=== PATIENT | male | born 1960 ===

== ENCOUNTER 2023-12-10 11:45 | Outpatient (CLI) | payer MEDICARE, SELFPAY ==
--- NOTE | ~2023-12-10 | XR_ITS ---
Right elbow Technique: AP, oblique, and lateral views were obtained. Clinical History: Pain Findings: No acute fracture or dislocation is seen. Osseous alignment is anatomic. Joint spaces are p reserved. There is no displacement of the fat pads, and soft tissues are unremarkable. Impression: Unremarkable radiographs. Reviewed, dictated and finalized at location . Impression: Unremarkable radiographs.
== END 2023-12-10 11:46 | disposition home or self-care (01) ==
LOC: CHSIMG 11:49
PROVIDERS: PCP Internal Medicine; Visit Provider Internal Medicine
DX: M25.521 Pain in right elbow (principal)
CPT/HCPCS: 73080

== ENCOUNTER 2024-05-16 11:21 | Outpatient (CLI) | payer MEDICARE, SELFPAY ==
--- NOTE | ~2024-05-16 | XR_ITS ---
XR hip BI 2V w AP pelvis Ordering provider: Stanislaw Murphy MD History: . BL HIP PAIN CHRONIC . Comparison: None. FINDINGS: BONES: No acute fracture or dislocation. Possibility of AVN in the right femoral head is not excluded . HIP JOINT SPACES: Normal. SACROILIAC JOINT SPACES/LUMBAR SPINE: The sacroiliac joint spaces shows left sacroiliitis. Mild degen erative changes of the visualized lower lumbar spine. PUBIC SYMPHYSIS: Normal. SOFT TISSUES: Normal. Device is projected over the right iliac bone with spinal stimulator IMPRESSION: No acute osseous abnormality of the bilateral hips and pelvis. Reviewed, dictated and finalized at location A.
[2024-05-16 11:38] LABS: Hematocrit 39.1 % (40.0-54.0); Mean Corpuscular HGB Conc 33.2 g/dL (32-36); Mean Corpuscular Hemoglobin 29.9 pg (27.0-31.0); Mean Corpuscular Volume 89.9 fL (78.0-102.0); Mean Platelet Volume 8.9 fl (8.7-11.0); Platelet Count Result 281 K/mm3 (150-420); Red Blood Count 4.35 M/mm3 (4.70-6.10); Red Cell Distribution Width 14.6 % (11.6-14.4)
[2024-05-16 11:46] LABS: White Blood Count 20.4 K/mm3 (4.8-10.8)
[2024-05-16 11:48] LABS: Add Urine Microscopic? YES; Appearance Urine Clear (Clear); Bilirubin Urine Negative (Negative); Blood Urine Trace-intact (Negative); Color Urine Yellow (Yellow); Glucose Urine UA 3+ (Negative); Ketones Urine Negative (Negative); Leukocyte Esterase Ur Negative (Negative); Nitrate Urine Negative (Negative); Protein Urine 1+ (Negative); Specific Grav Ur 1.015 (1.010-1.020)
[2024-05-16 11:53] LABS: Bacteria Urine Rare /hpf; Mucus Urine Few /lpf; Squamous Epithelial Cell Urine Occasional /hpf (Few); WBC Urine None seen /hpf (0-3)
[2024-05-16 13:05] LABS: Band Neutrophils Percent 0 % (0-6); Eosinophils Percent Manual 2 % (1-6); Lymphocytes Absolute Manual 2.65 K/mm3 (1.1-4.5); Lymphocytes Percent Manual 13 % (18-44); Monocytes Absolute Manual 0.61 K/mm3 (0.1-0.90); Monocytes Percent Manual 3 % (3-9); Neutrophils Absolute Manual 16.72 K/mm3 (1.3-6.7); Neutrophils Percent Manual 82 % (46-73); Total Cells Counted 100
[2024-05-16 13:06] LABS: Platelet Estimate Adequate (Adequate)
[2024-05-16 13:44] LABS: Alanine Aminotransferase 13 U/L (16-63); Albumin Level 3.2 g/dL (3.4-5.0); Alkaline Phosphatase 139 U/L (46-116); Anion Gap 8 mmol/L (4-12); Aspartate Amino Transferase 15 U/L (15-37); Bilirubin,Total 0.6 mg/dL (0.00-1.00); Blood Urea Nitrogen 10 mg/dL (7-18); Calcium 8.7 mg/dL (8.5-10.1); Carbon Dioxide 31 mmol/L (21-32); Chloride 99 mmol/L (98-108); Cholesterol 130 mg/dL (0-200); Estimated Glomerular Filt Rate > 60; Free T3 2.59 pg/mL (2.18-3.98); Free T4 Free Thyroxine 1.24 ng/dL (0.76-1.46); Glucose 205 mg/dL (70-99); HDL Direct 47 mg/dL (40-60); LDL Cholesterol Calculated 68 mg/dL (<130); Osmolality Calculated 291 mOsm/kg (285-295); Potassium 3.5 mmol/L (3.5-5.1); Sodium 138 mmol/L (136-145); Thyroid Stimulating Hormone 0.93 uIU/mL (0.36-3.74); Total Protein 6.6 g/dL (6.4-8.2); Triglycerides 74 mg/dL (0-150)
[2024-05-16 13:45] LABS: CRP 12.7 mg/dL (0.0-0.9); Prostate Specific Antigen < 0.1 ng/mL (< OR = 4.0)
[2024-05-17 11:09] LABS: Hemoglobin A1C 9.9 % (<5.7)
== END 2024-05-16 11:22 | disposition home or self-care (01) ==
LOC: CHSLAB 11:23
PROVIDERS: PCP Internal Medicine; Visit Provider Internal Medicine
DX: R73.02 Impaired glucose tolerance (oral) (principal); I25.10 Atherosclerotic heart disease of native coronary artery without angina pectoris; J44.9 Chronic obstructive pulmonary disease, unspecified; M25.552 Pain in left hip; M25.551 Pain in right hip; E11.9 Type 2 diabetes mellitus without complications; Z12.5 Encounter for screening for malignant neoplasm of prostate
CPT/HCPCS: 36415; 73521; 80053; 80061; 81001; 83036; 84153; 84439; 84443; 84481; 85025; 86140; G0103

== ENCOUNTER 2024-10-10 16:01 | Outpatient (CLI) | payer MEDICARE, SELFPAY ==
[2024-10-10 16:15] LABS: Base Excess ABG 4.8 mmol/L (0-2); Basophils Absolute Auto 0.06 K/mm3 (0.00-0.10); Basophils Percent Auto 0.5 % (0.0-1.0); Eosinophils Absolute Auto 0.08 K/mm3 (0.02-0.50); Eosinophils Percent Auto 0.7 % (1.0-6.0); HCO3 ABG 28.7 mmol/L (23-29); Hematocrit 37.6 % (37.0-46.0); Hemoglobin 12.3 g/dL (12.4-15.3); Immature Granulocyte Absolute 0.08 K/mm3 (0.00-0.00); Immature Granulocyte Percent A 0.7 % (0.0-0.0); Lymphocytes Absolute Auto 1.84 K/mm3 (1.10-4.50); Lymphocytes Percent Auto 16.7 % (18.0-42.0); Mean Corpuscular HGB Conc 32.7 g/dL (32-36); Mean Corpuscular Hemoglobin 29.1 pg (27.0-31.0); Mean Corpuscular Volume 88.9 fL (78.0-102.0); Mean Platelet Volume 9.3 fl (8.7-11.0); Monocytes Percent Auto 6.4 % (2.0-11.0); Neutrophils Absolute Auto 8.26 K/mm3 (1.70-7.20); Oxygen Saturation ABG 86.6 % (95-97); Oxyhemoglobin 85.7 % (94-100); PCO2 ABG 39.8 mmHg (35-45); PO2 ABG 50.8 mmHg (80-90); Platelet Count Result 261 K/mm3 (150-420); Red Blood Count 4.23 M/mm3 (4.70-6.10); Red Cell Distribution Width 13.8 % (11.6-14.4); pH ABG 7.48 (7.35-7.45)
[2024-10-10 16:16] LABS: Device ROOM AIR; Modified Allen's Test Pass; Site Drawn LEFT RADIAL
[2024-10-10 16:30] LABS: Hemoglobin A1C 7.1 % (<5.7)
[2024-10-10 17:04] LABS: Alanine Aminotransferase 15 U/L (16-63); Alkaline Phosphatase 143 U/L (46-116); Anion Gap 8 mmol/L (4-12); Aspartate Amino Transferase < 10 U/L (15-37); Bilirubin,Total 0.4 mg/dL (0.00-1.00); Blood Urea Nitrogen 9 mg/dL (7-18); Calcium 7.9 mg/dL (8.5-10.1); Carbon Dioxide 32 mmol/L (21-32); Chloride 101 mmol/L (98-108); Estimated Glomerular Filt Rate > 60; Glucose 132 mg/dL (70-99); NT Pro B Type Natriuretic Pept 235 pg/mL (0-125); Osmolality Calculated 292 mOsm/kg (285-295); Potassium 2.9 mmol/L (3.5-5.1); Sodium 141 mmol/L (136-145); Total Protein 7.2 g/dL (6.4-8.2)
[2024-10-10 17:08] LABS: CRP 18.2 mg/dL (0.0-0.9)
--- OUTSIDE RECORDS SUMMARY | 2024-10-10 18:34 | XMS_ITS | Clinical Summary ---
Author Organization [facility] Address [address] [place] [address] Phone Care Team Providers Care Tennis Instructor Name Role Phone Unavailable Unavailable Unavailable Reason for Visit and Chief Complaint PAIN MANAGEMENT NEW CONSULT Plan of Treatment No Plan of Treatment Recorded Assessments Includes: Assessments from this encounter No Assessments Recorded Medical Equipment - Implanted Devices Includes: Current Devices No Medical Equipment Recorded Medications Administered Includes: Administered Medications from this encounter No Administered Medications Recorded Results Includes: Results discussed during this encounter No Results Recorded For Specified Dates History of Present Illness Includes: History of Present Illness from this encounter No History of Present Illness Recorded Social History No Social History Recorded - Smoking Status Unknown Medical History Includes: Medical History addressed during this encounter No Medical History Recorded Family History Includes: Family History addressed during this encounter No Family History Recorded Review of Systems Includes: Review of Systems from this encounter No Review of Systems Recorded Mental Status Includes: Mental Status from this encounter No Mental Status Recorded Functional Status Includes: Functional Status from this encounter No Functional Status Recorded Physical Exam Includes: Physical Exam from this encounter No Physical Exam Recorded Clinical Notes Includes: Clinical Notes from this encounter No Clinical Notes Recorded
--- OUTSIDE RECORDS SUMMARY | 2024-10-10 18:34 | XMS_ITS | Encounter Summary ---
Author Organization [facility] Address [address] [place] [address] Care Team Providers Care Track Coach Name Role Phone Kingsley Saul Motta MD Primary Care Provider [phone] Alejandro Red MD Un[facility] María Saldaña APRN DIRECTOR SURGICAL-C Unavailable Dang Salgado NP Primary Care Provider [phone] Isaac Nicholson MD Primary Care Provider [phone] Stanislaw Murphy MD Primary Care Provider [phone] Maribel De La Rosa MD Unavailable Encounter Details Date Type Department Care Team (Late st Contact Info) Description 08/24/2014 [facility] [address] [address] Alejandro Red MD Social History Tobacco Use Types Packs/Day Years Used Date Smoking Tobacco: Smoker, Current Status Unknown Alcohol Use Standard Drinks/Week Comments No 0 (1 standard drink = 0.6 oz pur e alcohol) Sex and Gender Information Value Date Recorded Sex Assigned at Male 08/25/2024 10:28 AM CASE PLANNER Legal Sex Male 11:19 PM CDT Gender Identity Not on file Sexual Orientation Not on file 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 Not on file No t on file documented as of this encounter Plan of Treatment Upcoming Encounters Date Type Department Care Team (Late st Contact Info) Description 11/28/2024 12:00 PM CDT Office Visit [facility] [place] [phone] Maribel De La Rosa MD [address] [place] [address] documented as of this encounter Visit Diagnoses Not on filedocumented in this encounter Additional Health Concerns Infection Onset Date Last Indicated Resolved Time COVID-19 Rule Out 12/11/2020 12/11/2020 12/11/2020 7:42 PM CDT COVID-19 Rule Out 05/31/2021 05/31/2021 05/31/2021 5:58 PM CDT COVID-19 Rule Out 05/31/2021 05/31/2021 06/01/2021 8:07 PM CDT Respiratory Rule-Out 09/20/2024 09/20/2024 025 3:34 PM CASE PLANNER COVID-19 Rule Out 09/20/2024 09/20/2024 09/20/2024 3:48 PM CASE PLANNER Influenza - Seasonal Comment:[facility] notified of ICU influenza admission 09/20/2024 09/21/2024 10/01/2024 12:33 AM CASE PLANNER documented as of this encounter Care Teams Track Coach Relationship Specialty Start Date End Date Saul Wynn MD [address] [place], [place] [id number] PCP - General FAMILY PRACTICE 09/10/16 05/24/20 Dang Salgado NP [address] [place] [address] PCP - General Nurse Practitioner Family 05/25/20 12/10/20 Isaac Nicholson MD [address] [place] [phone] PCP - General FAMILY PRACTICE 12/11/20 09/03/23 Stanislaw Murphy MD [address] [place] [address] PCP - General INTERNAL MEDICINE 09/04/23 Alejandro Red MD [address] [place] [address] [employer] Operator CARDIOVASCULAR DISEASE 09/10/16 01/30/24 María Saldaña, DERRICK FOLLOWER, DIRECTOR SURGICAL-C [address] [facility] [address] [place] [address] [employer] Operator CARDIOVASCULAR DISEASE 11/09/17 01/30/24 Maribel De La Rosa MD [address] [place] [address] Consulting Physician CARDIOVASCULAR DISEASE 01/31/24 documented as of this encounter
--- OUTSIDE RECORDS SUMMARY | 2024-10-10 18:34 | XMS_ITS | Encounter Summary ---
Author Organization [facility] Address [address] [place] [address] Care Team Providers Care Printer Slotter Operator Name Role Phone Kingsley Saul Motta MD Primary Care Provider [phone] Alejandro Red MD Un[facility] Mar[facility] Perales APRN LOCOMOTIVE SUPERVISOR-C Unavailable Dang Salgado NP Primary Care Provider [phone] Isaac Nicholson MD Primary Care Provider [phone] Stanislaw Murphy MD Primary Care Provider [phone] Maribel De La Rosa MD Unavailable Encounter Details Date Type Department Care Team (Late Contact Info) Description 01/01/2019 Abstract [facility] [address] [place] [address] , Generic Conversion, Social History Tobacco Use Types Packs/Day Years Used Date Smoking Tobacco: Some Days Cigarettes Smokeless Tobacco: Never Comments:quit 1 week ago is on chantix Alcohol Use Standard Drinks/Week Comments No 0 (1 standard drink = 0.6 oz pur e alcohol) Sex and Gender Information Value Date Recorded Sex Assigned at Male 08/25/2024 10:28 AM FENDER MECHANIC APPRENTICE Legal Sex Male 11:19 PM CDT Gender Identity Not on file Sexual Orientation Not on file 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 Not on file No t on file documented as of this encounter Plan of Treatment Upcoming Encounters Date Type Department Care Team (Late Contact Info) Description 11/28/2024 12:00 PM CDT Office Visit [facility] [address] [place] [phone] Maribel De La Rosa MD [address] [place] [address] documented as of this encounter Visit Diagnoses Not on filedocumented in this encounter Additional Health Concerns Infection Onset Date Last Indicated Resolved Time COVID-19 Rule Out 12/11/2020 12/11/2020 12/11/2020 7:42 PM CDT COVID-19 Rule Out 05/31/2021 05/31/2021 05/31/2021 5:58 PM CDT COVID-19 Rule Out 05/31/2021 05/31/2021 06/01/2021 8:07 PM CDT Respiratory Rule-Out 09/20/2024 09/20/2024 025 3:34 PM FENDER MECHANIC APPRENTICE COVID-19 Rule Out 09/20/2024 09/20/2024 09/20/2024 3:48 PM FENDER MECHANIC APPRENTICE Influenza - Seasonal Comment:[facility] notified of ICU influenza admission 09/20/2024 09/21/2024 10/01/2024 12:33 AM FENDER MECHANIC APPRENTICE documented as of this encounter Care Teams Printer Slotter Operator Relationship Specialty Start Date End Date Saul Wynn MD [address] [place], [place] [phone] PCP - General FAMILY PRACTICE 09/10/16 05/24/20 Dang Salgado NP [address] [place] [address] PCP - General Nurse Practitioner Family 05/25/20 12/10/20 Isaac Nicholson MD [address] [place] [phone] PCP - General FAMILY PRACTICE 12/11/20 09/03/23 Stanislaw Murphy MD [address] [place] [address] PCP - General INTERNAL MEDICINE 09/04/23 Alejandro Red MD [address] [place] [address] [place] [employer] CARDIOVASCULAR DISEASE 09/10/16 01/30/24 María Saldaña, STENCIL MACHINE OPERATOR, LOCOMOTIVE SUPERVISOR-C [address] [facility] [address] [place] [address] [place] [employer] CARDIOVASCULAR DISEASE 11/09/17 01/30/24 Maribel De La Rosa MD [address] [place] [address] Consulting Physician CARDIOVASCULAR DISEASE 01/31/24 documented as of this encounter
--- OUTSIDE RECORDS SUMMARY | 2024-10-10 18:35 | XMS_ITS | Clinical Summary ---
Author Organization [facility] Address [address] [place] [address] Care Team Providers Care Heat Regulator Name Role Phone Stanislaw Murphy MD Primary Care Provider [phone] Maribel De La Rosa MD Unavailable Allergies No known active allergies Medications aspirin EC (ASPIRIN EC) 81 MG tablet Take 1 tablet (81 mg total) by mouth daily. Active metoprolol succinate 100 MG 24 hr tablet Take 1 tablet (100 mg total) by mouth daily. 010 Active atorvastatin 20 MG tablet Take 1 tablet (20 mg total) by mouth daily. 021 Active omeprazole 40 MG capsule Take 1 capsule (40 mg total) by mouth 2 (two) times daily. 60 capsule 3 021 Active Nebulizer MiscIndications :Centrilobular emphysema ([facility]) Please provide patient with nebulizer machine to be used with nebulized medications.. Diagnosis COPD emphysema 1 each 021 Active cyclobenzaprine (FLEXERIL) 10 MG tablet Take 1 tablet (10 mg total) by mouth 3 (three) times daily. 023 Active ONETOUCH ULTRA test strip daily. 023 Active HYDROcodone-dipak taminophen (NORCO) 10-325 MG tablet Take 1 tablet by mouth every 6 (six) hours as needed for Pain. 023 Active albuterol (PROVENTIL) (2.5 MG/3ML) 0.083% nebulizer solutionIndicat ions:Pulmonary emphysema, unspecified emphysema type ([facility]) Inhale 1 vial every 6 hours for wheezing 300 mL 2 023 Active montelukast (SINGULAIR) 10 MG tabletIndicatio ns:Moderate persistent asthma without complication (HHS/HCC) Take 1 tablet (10 mg total) by mouth nightly at bedtime. 90 tablet 3 024 Active SYMBICORT 160-4.5 MCG/ACT inhalerIndicati ons:Chronic obstructive pulmonary disease, unspecified COPD type ([facility]) INHALE 2 PUFFS INTO THE LUNGS TWICE A DAY 6 g 6 024 Active dilTIAZem CD (CARDIZEM CD) 180 MG 24 hr capsule Take 1 capsule (180 mg total) by mouth every morning. 90 capsule 2 024 Active Umeclidinium [place] (INCRUSE ELLIPTA) 62.5 MCG/ACT AEROSOL POWDER, BREATH ACTIVATEDIndica tions:Pulmonary emphysema, unspecified emphysema type ([facility]) Inhale 1 puff into the lungs daily. 30 each 6 024 Active nitroglycerin (NITROSTAT) 0.[address] 1 tablet (0.4 mg total) under the tongue every 5 (five) minutes as needed for Chest Pain. 25 tablet 024 Active glimepiride (AMARYL) 2 MG tablet Take 1 tablet (2 mg total) by mouth every morning before breakfast. Active OXYGEN CONCENTRATOR SUPPLY, DME,Indications :Acute hypoxic respiratory failure ([facility]),Asthma -COPD overlap syndrome ([facility]),COPD (chronic obstructive pulmonary disease) ([facility]) 1 Device by Nasal route continuous. Nasal cannula, 2 at rest and 3 with activity. Portable oxygen tank, stationary oxygen concentrator. 1 Device 025 Active ipratropium-alb uterol (DUONEB) 0.5-2.5 (3) MG/3ML SolutionIndicat ions:COPD Take 3 mLs by nebulization every 6 (six) hours as needed (respiratory distress). Indications: COPD 360 mL 1 025 Active busPIRone (BUSPAR) 10 MG tabletIndicatio ns:Anxiety disorder Take 1 tablet (10 mg total) by mouth 2 (two) times daily. Indications: Anxiety disorder 60 tablet 025 Active WALKER MISC, DME,Indications :Unsteady Gait 1 Device by Does not apply route as needed. Indications: Unsteady Walk 4 wheel walker with seat 1 Device 025 2025 Active albuterol sulfate HFA 108 (90 Base) MCG/ACT inhalerIndicati ons:Centrilobul ar emphysema ([facility]) TAKE 2 PUFFS BY MOUTH EVERY 4 HOURS NEEDED 8 g 025 Active albuterol sulfate HFA 108 (90 Base) MCG/ACT inhalerIndicati ons:Centrilobul ar emphysema ([facility]) inhale 2 puffs by mouth every 4 hours as needed 1 g 8 024 2024 Discontinued cephALEXin (KEFLEX) 500 MG capsuleIndicati ons:Asthma-COPD overlap syndrome ([facility]) TAKE 1 CAPSULE BY MOUTH THREE TIMES A DAY 30 capsule 025 2024 Discontinued(E rror) predniSONE (DELTASONE) 5 mg tabletIndicatio ns:Asthma-COPD overlap syndrome ([facility]) TAKE 3 TABLETS DAILY FOR 3 DAYS, 2 TABLETS DAILY FOR 3 DAYS, 1 TABLET DAILY FOR 3 DAYS AND STOP. 18 tablet 025 2024 Discontinued(E rror) guaiFENesin ER (MUCINEX) 600 MG 12 hr tabletIndicatio ns:COPD Take 1 tablet (600 mg total) by mouth 2 (two) times daily for 10 days. Indications: COPD 20 tablet 025 2024 Active Problems Problem Noted Date Diagnosed Date Acute respiratory failure ([facility]) 08/28 Acute hypoxic respiratory failure ([facility]) 09/21/2024 Lung nodule 04/08/2023 Sleep related hypoxia 06/16/2022 Smoker 03/22/2021 Snoring 03/22/2021 Marijuana smoker 08/23/2019 Cigarette nicotine dependenc e with nicotine-induced disorder 08/23/2019 Low back pain 05/07/2017 Anxiety disorder 05/05/2017 Depression 05/05/2017 Hiatal hernia 05/05/2017 Hip pain, left 05/05/2017 Diabetes mellitus, type 2 ([facility]) 04/26 Asthma-COPD overlap syndrome ([facility]) 1 Hypercholesteremia 05/05/2017 Hypertension 05/05/2017 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 11/23/2016 Mixed hyperlipidemia 11/23/2016 PVD (peripheral vascular disease) HTN (hypertension) Restless leg syndrome Shortness of breath Chest pain Centrilobular emphysema ([facility]) Diabetes ([facility]) COPD (chronic obstructive pu lmonary disease) ([facility]) Claudication Resolved Problems Problem Noted Date Diagnosed Date Resolved Date Sleep apnea 05/05/2017 06/16/2022 Shortness of breath 11/23/2016 11/10/19 18 Vasovagal syncope 11/23/2016 11/09/2017 Encounter for preventive health examination 01/10/2016 04/06/2020 Broken ankle 02/11/2019 Encounters Date Type Department Care Team Description 10/04/2024 10:00 AM CDT Home Care Visit [facility] [address] [place] [address] Rebecca Luke RN SN NON ADMIT SOC 09/28/2024 8:00 AM GOAT FARMER Home Care Visit [facility] [address] [place] [address] Kathrine Caban, RN SN NON ADMIT SOC 09/27/2024 Hospital Follow-up Call [facility] [address] [place] [address] Bri Moreno, RN 09/26/2024 10:15 AM GOAT FARMER Home Care Visit [facility] Home Care [facility] [address] [place] [address] Katelyn Gilman LPN /[facility] ORIENTATION VISIT 09/26/2024 10:15 AM GOAT FARMER Home Care Visit [facility] Home Care [facility] [address] [place] [address] Bri Ham LPN [facility] TELEPHONE CALL 09/21/2024 6:36 AM GOAT FARMER - 09/26/2024 1:53 PM GOAT FARMER Hospital Encounter [facility] [address] [place] [address] Vilma Garcia MD Hindi, Zakaria, MD Kakani, Elijah V, MD Wali, Neehal, MD Mahmoud, Anas, MD Bhandari, Amit, MD Discharge Disposition: Home or Self Care (Routine Discharge) 09/21/[address] [phone] Yomaira Powell MD Called To Cancel Office Appt. 09/20/2024 2:26 PM GOAT FARMER - 09/21/2024 5:35 AM [facility] Emergency [place] [facility] [address] [facility] [address] [place] [address] Genaro Cordoba MD Phemister, Dominic L, MD Shortness Of Breath Discharge Disposition: Transfer to Acute Care Hospital 09/20/2024 Travel 08/25/2024 10:30 AM GOAT FARMER - 08/25/2024 11:59 PM GOAT FARMER Hospital Encounter [place] [address] [facility] [place] [address] Noman Linton MD Discharge Disposition: Home or Self Care (Routine Discharge) 08/25/2024 Travel 08/09/2024 Orders Only [address] [phone] Yomaira Powell MD 08/09/[address] [phone] Yomaira Powell MD Insurance 08/08/[address] [phone] Yomaira Powell MD Refill Request from Last 3 Months Immunizations Name Administration Dates Next Due Fluzone 6 Months+ Quad (0.5 mL Prefilled Syringe ) 04/20/2019 Family History Medical History Relation Comments Heart Attack Brother 1 Heart Attack Brother 2 Coronary artery disease Father Heart Attack Father Stroke Father Hypertension Mother Diabetes Other Heart Disease Other Hypertension Other Relation Status Comments Brother 1 Brother 2 Father Mother Other Alive Social History Tobacco Use Types Packs/Day Years Used Date Smoking Tobacco: Every Day Cigarettes 1 42 Smokeless Tobacco: Never Alcohol Use Standard Drinks/Week Comments No 0 (1 standard drink = 0.6 oz pur e alcohol) [facility] Utilities Answer Date Recorded In the past 12 months has e [email or web address], oil, or water [employer] threatened to shut off services in your home? No 09/21/2024 Humiliation, Afraid, Rape, and Kick questionnair e Answer Date Recorded Within the last year, have y ou been afraid of your partner or ex-partner? No 09/21/2024 Within the last year, have y ou been humiliated or emotionally abused in other ways by your partner or ex-partner? No Within the last year, have y ou been kicked, hit, slapped, or otherwise physically hurt by your partner or ex-partner? No 09/21/2024 Within the last year, have y ou been raped or forced to have any kind of sexual activity by your partner or ex-partner? No 09/21/2024 Overall Financial Resource Strain (CARDIA) Answe r Date Recorded How hard is it for you to pa y for the very basics like food, housing, medical care, and heating? Not very hard 09/21/2024 PHQ-2 Answer Date Recorded PHQ-2 Score - If the patient scores above 3, please move on to questions 3-9 2 03/20/2021 Hunger Vital Sign Answer Date Recorded Within the past 12 months, y ou worried that your food would run out before you got the money to buy more. Never true 09/21/19 25 Within the past 12 months, t he food you bought just didn't last and you didn't have money to get more. Never true 09/21/2024 PRAPARE - Transportation Answer Date Re corded In the past 12 months, has l ack of transportation kept you from medical appointments or from getting medications? No 08/28 In the past 12 months, has l ack of transportation kept you from meetings, work, or from getting things needed for daily living? No 09/21/2024 Housing Stability Vital Sign Answer Saleem e Recorded In the last 12 months, was t here a time when you were not able to pay the mortgage or rent on time? No 09/21/2024 In the past 12 months, how m any times have you moved where you were living? 0 09/21/2024 At any time in the past 12 m [facility], were you homeless or living in a care home (including now)? 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 Not on file Not on file No t on file Last Filed Vital Signs Vital Sign Reading Time Taken Comments Blood Pressure 134/87 09/26/2024 7:52 AM GOAT FARMER Pulse 119 09/26/2024 7:52 AM GOAT FARMER Temperature 36.5 C (97.7 F) 09/26/2024 7:52 AM GOAT FARMER Respiratory Rate 20 09/26/2024 4:37 AM GOAT FARMER Oxygen Saturation 94% 09/26/2024 7:52 AM GOAT FARMER Inhaled Oxygen Concentration - - Weight 65.3 kg (143 lb 15.4 oz) 09/26/2024 5:00 AM GOAT FARMER Height 180 cm (5' 10.87 ) 09/21/2024 10 :25 AM GOAT FARMER Body Mass Index 20.15 09/21/2024 10:25 AM GOAT FARMER Plan of Treatment Upcoming Encounters Date Type Department Care Team (Late st Contact Info) Description 11/28/2024 12:00 PM CDT Office Visit [facility] [place] [phone] Maribel De La Rosa MD [address] [place] [phone] Health Maintenance Due Date Last Done Comments ASCVD Statin 1959 Kidney Health Evaluation 1960 Pneumococcal Vaccine: 65+ Years (1 of 2 - PCV) 1965 Pneumococcal Vaccine: Pediatrics (0 to 5 Years) and At-Risk Patients (6 to 64 Years) (1 of 2 - PCV) 1965 Diabetes: Retinopathy Eye Exam 1977 Hepatitis C 1977 DTaP, Tdap and Td Vaccines (1 - Tdap) 1978 Zoster Vaccines (1 of 2) 2009 ASCVD LDL 11/05/2018 11/05/2017 Lipid Panel 11/05/2018 11/05/2017 RSV Immunization or 60+ Years (1 - Risk 60-74 years 1-dose series) 2019 COVID-19 Vaccine (3 - season) 2024 12/04/2020, 11/06/2020 Influenza Adult (#1) 2024 04/20/2019 PHQ-2 (Physician [place]) 07/27/2024 Hemoglobin A1C 03/21/2025 09/21/2024, 04/27, 02/15/2022, Additional history exists Lung Cancer Screening 08/25/2025 08/25/2024 , 03/18/2024, 09/04/2023, Additional history exists Colorectal Cancer Screening Colonoscopy (10 Years) 02/15/2031 02/15/2021, 02/15/2021 AAA SCREENING Completed 08/25/2024, 02/25, 09/04/2023, Additional history exists Meningococcal B Vaccine Aged Out No l onger eligible based on patient's age to complete this topic Meningococcal Vaccine Aged Out No annemarie ap eligible based on patient's age to complete this topic RSV Immunizations Under 20 Months Aged Out No longer eligible based on patient's age to complete this topic Procedures Procedure Name Priority Date/Time Associated Diagnosis Comments POCT GLUCOSE - BRYAN DOCKED DEVICE Routine 09/26/2024 10:57 AM GOAT FARMER POCT GLUCOSE - BRYAN DOCKED DEVICE Routine 09/26/2024 5:51 AM GOAT FARMER XR CHEST PORTABLE STAT 09/26/2024 5:3 8 AM GOAT FARMER BLOOD GAS, ARTERIAL LAB STAT 09/26/2024 5:10 AM GOAT FARMER POCT GLUCOSE - BRYAN DOCKED DEVICE Routine 09/25/2024 8:42 PM GOAT FARMER POCT GLUCOSE - BRYAN DOCKED DEVICE Routine 09/25/2024 3:37 PM GOAT FARMER POCT GLUCOSE - BRYAN DOCKED DEVICE Routine 09/25/2024 10:47 AM GOAT FARMER PHOSPHORUS, INORGANIC PHOSPHATE Routine 09/25/2024 5:18 AM GOAT FARMER MAGNESIUM Routine 09/25/2024 5:18 AM GOAT FARMER COMPREHENSIVE METABOLIC PANEL Routine 09/25/2024 5:18 AM GOAT FARMER CBC W/DIFF AUTOMATED Routine 09/25/2024 5:18 AM GOAT FARMER POCT GLUCOSE - BRYAN DOCKED DEVICE Routine 09/25/2024 4:59 AM GOAT FARMER POCT GLUCOSE - BRYAN DOCKED DEVICE Routine 09/24/2024 8:44 PM GOAT FARMER POCT GLUCOSE - BRYAN DOCKED DEVICE Routine 09/24/2024 4:53 PM GOAT FARMER POCT GLUCOSE - BRYAN DOCKED DEVICE Routine 09/24/2024 11:04 AM GOAT FARMER CBC W/DIFF AUTOMATED Routine 09/24/2024 5:21 AM GOAT FARMER PHOSPHORUS, INORGANIC PHOSPHATE Routine 09/24/2024 5:21 AM GOAT FARMER MAGNESIUM Routine 09/24/2024 5:21 AM GOAT FARMER BASIC METABOLIC PANEL Routine 09/24/2024 5:21 AM GOAT FARMER POCT GLUCOSE - BRYAN DOCKED DEVICE Routine 09/24/2024 5:12 AM GOAT FARMER POCT GLUCOSE - BRYAN DOCKED DEVICE Routine 09/23/2024 8:59 PM GOAT FARMER POCT GLUCOSE - BRYAN DOCKED DEVICE Routine 09/23/2024 4:35 PM GOAT FARMER POCT GLUCOSE - BRYAN DOCKED DEVICE Routine 09/23/2024 10:36 AM GOAT FARMER HOME O2 EVAL Routine 09/23/2024 9:57 AM GOAT FARMER POCT GLUCOSE - BRYAN DOCKED DEVICE Routine 09/23/2024 8:29 AM GOAT FARMER CBC W/DIFF AUTOMATED Routine 09/23/2024 2:56 AM GOAT FARMER PHOSPHORUS, INORGANIC PHOSPHATE Routine 09/23/2024 2:56 AM GOAT FARMER MAGNESIUM Routine 09/23/2024 2:56 AM GOAT FARMER BASIC METABOLIC PANEL Routine 09/23/2024 2:56 AM GOAT FARMER POCT GLUCOSE - BRYAN DOCKED DEVICE Routine 09/22/2024 4:54 PM GOAT FARMER POCT GLUCOSE - BRYAN DOCKED DEVICE Routine 09/22/2024 12:30 PM GOAT FARMER POCT GLUCOSE - BRYAN DOCKED DEVICE Routine 09/22/2024 6:52 AM GOAT FARMER CBC W/DIFF AUTOMATED Routine 09/22/2024 5:30 AM GOAT FARMER PHOSPHORUS, INORGANIC PHOSPHATE Routine 09/22/2024 5:30 AM GOAT FARMER MAGNESIUM Routine 09/22/2024 5:30 AM GOAT FARMER BASIC METABOLIC PANEL Routine 09/22/2024 5:30 AM GOAT FARMER POCT GLUCOSE - BRYAN DOCKED DEVICE Routine 09/21/2024 8:05 PM GOAT FARMER POCT GLUCOSE - BRYAN DOCKED DEVICE Routine 09/21/2024 5:56 PM GOAT FARMER POCT GLUCOSE - BRYAN DOCKED DEVICE Routine 09/21/2024 4:02 PM GOAT FARMER POCT ACUTE VENOUS PANEL Routine 09/21/2024 1:22 PM GOAT FARMER POCT GLUCOSE - BRYAN DOCKED DEVICE Routine 09/21/2024 11:54 AM GOAT FARMER USE ECHOCARDIOGRAM Routine 09/21/2024 9: 53 AM GOAT FARMER ECG 12-LEAD Routine 09/21/2024 8:47 AM GOAT FARMER POCT ACUTE VENOUS PANEL Routine 09/21/2024 7:53 AM GOAT FARMER POCT GLUCOSE - BRYAN DOCKED DEVICE Routine 09/21/2024 7:49 AM GOAT FARMER CULTURE, BACTERIA, BLOOD Routine 09/21/2024 7:40 AM GOAT FARMER MRSA SCREENING Nurse Collected Priority 09/21/2024 7:40 AM GOAT FARMER LACTIC ACID W REFLEX (SEPSIS) STAT 09/21/2024 7:40 AM GOAT FARMER PROCALCITONIN (PCT) Routine 09/21/2024 7 :40 AM GOAT FARMER AMMONIA Routine 09/21/2024 7:40 AM GOAT FARMER CORTISOL, TOTAL Routine 09/21/2024 7:40 AM GOAT FARMER RESPIRATORY PCR PANEL 2 Nurse Collected Priority 09/21/2024 7:29 AM GOAT FARMER HEMOGLOBIN, GLYCOSYLATED Routine 09/21/2024 7:17 AM GOAT FARMER PROTHROMBIN TIME, VENOUS Routine 09/21/2024 7:17 AM GOAT FARMER CBC W/DIFF AUTOMATED Routine 09/21/2024 7:17 AM GOAT FARMER LIPASE Routine 09/21/2024 7:17 AM GOAT FARMER THYROID STIM HORMONE TSH Routine 09/21/2024 7:17 AM GOAT FARMER PHOSPHORUS, INORGANIC PHOSPHATE Routine 09/21/2024 7:17 AM GOAT FARMER LACTIC ACID Routine 09/21/2024 7:17 AM GOAT FARMER MAGNESIUM Routine 09/21/2024 7:17 AM GOAT FARMER TROPONIN, QUANT Routine 09/21/2024 7:17 AM GOAT FARMER COMPREHENSIVE METABOLIC PANEL Routine 09/21/2024 7:17 AM GOAT FARMER BLOOD GAS, VENOUS STAT 09/20/2024 8:5 7 PM GOAT FARMER CRITICAL CARE Routine 09/20/2024 7:05 PM GOAT FARMER BLOOD GAS, VENOUS STAT 09/20/2024 5:4 6 PM GOAT FARMER CTA CHEST PE PROTOCOL STAT 09/20/2024 4:37 PM GOAT FARMER BLOOD GAS, VENOUS STAT 09/20/2024 4:2 5 PM GOAT FARMER ECG 12-LEAD Routine 09/20/2024 2:59 PM GOAT FARMER BLOOD GAS, VENOUS STAT 09/20/2024 2:4 7 PM GOAT FARMER D-DIMER, QUANTITATIVE STAT 09/20/2024 2:47 PM GOAT FARMER LACTIC ACID W REFLEX (SEPSIS) STAT 09/20/2024 2:47 PM GOAT FARMER TROPONIN, QUANT STAT 09/20/2024 2:47 PM GOAT FARMER COMPREHENSIVE METABOLIC PANEL STAT 09/20/2024 2:47 PM GOAT FARMER CBC W/DIFF AUTOMATED STAT 09/20/2024 2:47 PM GOAT FARMER XR CHEST PORTABLE STAT 09/20/2024 2:4 5 PM GOAT FARMER CORONAVIRUS (COVID-19) ANTIGEN STAT 09/20/2024 2:40 PM GOAT FARMER INFLUENZA A & B STAT 09/20/2024 2:[address] CHEST WO CON Routine 08/25/2024 10:37 AM GOAT FARMER Lung nodule COLONOSCOPY 02/15/2021 8:22 AM CDT LIPID PANEL (OUTSIDE LAB) Routine 11/05/2017 from Last 3 Months or Most Recently Relevant to Health Maintenance Results * (ABNORMAL) POCT glucose (09/26/2024 10:57 AM GOAT FARMER) Only the most recent of22 resultswithin the time period is included. GLUCOSE POC 172(H) 70 - 109 09/26/2024 11:11 AM GOAT FARMER [facility] 09/26/2024 10:5 7 AM GOAT FARMER Ben Medellin MD POCT ORDERABLES - DEVICE Final Result [facility] [address] [place] [address], [id number] * XR CHEST PORTABLE (09/26/2024 5:38 AM GOAT FARMER) Only the most recent of2 resultswithin the time period is included. Anatomical Region Laterality Modality Chest Radiographic Nisreen ging 09/26/2024 5:56 AM GOAT FARMER Impressions 09/26/2024 5:59 AM GOAT FARMER IMPRESSION:===== No acute findings. Resolution of bilateral lower lobe interstitial prominence.. Referred By: GEOVANNY GALLARDO Interpreted By: Devin Ferraro MD, 09/26/2024 5:56 AM Narrative 09/26/2024 5:59 AM GOAT FARMER [address] [id number] EXAMINATION: CHEST RADIOGRAPH SINGLE VIEW Exam date/time: 09/26/2024 5:36 AM Reason For Exam: SOB Comparison: 09/20/2024 Technique: Upright AP view of the chest Findings: Heart size normal. Proximal airways unremarkable. No suspicious pulmonary lesion, pneumothorax, or pleural effusion. Emphysematous change. Thoracic Intrathecal electrodes. Partially visualized cervical spine hardware. Calcified granulomas. ===== Procedure Note Devin Ferraro MD - 09/26/[address] [address] EXAMINATION: CHEST RADIOGRAPH SINGLE VIEW Exam date/time: 09/26/2024 5:36 AM Reason For Exam: SOB Comparison: 09/20/2024 Technique: Upright AP view of the chest Findings: Heart size normal. Proximal airways unremarkable. No suspiciouspulmonary lesion, pneumothorax, or pleural effusion. Emphysematous change. Thoracic Intrathecal electrodes. Partiallyvisualized cervical spine hardware. Calcified granulomas. ===== IMPRESSION:===== No acute findings. Resolution of bilateral lower lobe interstitial prominence.. Referred By: GEOVANNY GALLARDO Interpreted By: Devin Ferraro MD, 09/26/2024 5:56 AM Ben Medellin MD GENERAL IMAGING Final Result * (ABNORMAL) ARTERIAL BLOOD GAS (09/26/2024 5:10 AM GOAT FARMER) PH ARTERIAL 7.45 7.35 - 7.45 09/26/2024 5:22 AM GOAT FARMER [facility] PCO2 46.5(H) 35.0 - 45.0 MMHG 09/26/2024 5:22 AM GOAT FARMER [facility] PO2 67.8(L) 83.0 - 108.0 MMHG 09/26/2024 5:22 AM [facility] BICARB ARTERIAL 31.8(H) 22 - 26 MMOL/L 09/26/2024 5:22 AM [facility] TOTAL CO2 ARTERIAL 33.3(H) 23 - 27 MMOL/L 09/26/2024 5:22 AM [facility] BE/BASE EXCESS 7.0(H) 0 - 2 MMOL/L 09/26/2024 5:22 AM [facility] O2 Saturation 94(L) 95 - 98 % 09/26/2024 5:22 AM [facility] BRANDEN TEST POSITIVE 09/26/2024 5:10 AM [facility] OXYGEN STATUS 3 LT 09/26/2024 5:10 AM [facility] DRAW SITE ARTERIAL LEFT BRACHIAL 09/26/2024 5:10 AM [facility] 09/26/2024 5:10 AM GOAT FARMER Ben Medellin MD LABORATORY Final Result [facility] [address] [place] [address], [id number] * (ABNORMAL) COMPREHENSIVE METABOLIC PANEL (09/25/2024 5:18 AM GOAT FARMER) Only the most recent of3 resultswithin the time period is included. SODIUM S/P/B 137 136 - 145 MMOL/L 09/25/2024 5:55 AM [facility] POTASSIUM S/P/B 3.5 3.5 - 5.1 MMOL/L 09/25/2024 5:55 AM [facility] CHLORIDE S/P/B 103 97 - 115 MMOL/L 09/25/2024 5:55 AM [facility] CO2 30.8 21.0 - 32.0 MMOL/L 09/25/2024 5:55 AM [facility] GLUCOSE 114(H) 74 - 106 MG/DL 09/25/2024 5:55 AM [facility] BUN 19(H) 7 - 18 MG/DL 09/25/2024 5:55 AM [facility] CREATININE S/P/B 0.51(L) 0.70 - 1.30 MG/DL 09/25/2024 5:55 AM [facility] CALCIUM S/P/B 9.5 8.5 - 10.1 MG/DL 09/25/2024 5:55 AM [facility] BILIRUBIN TOTAL S/P/B 0.3 0.2 - 1.0 MG/DL 09/25/2024 5:55 AM [facility] ALKALINE PHOSPHATASE S/P/B 82 45 - 115 U/L 09/25/2024 5:55 AM [facility] AST 7(L) 15 - 37 U/L 09/25/2024 5:55 AM [facility] ALT 21 16 - 61 U/L 09/25/2024 5:55 AM [facility] TOTAL PROTEIN S/P/B 6.7 6.4 - 8.2 G/DL 09/25/2024 5:55 AM [facility] ALBUMIN S/P/B 3.0(L) 3.4 - 5.0 G/DL 09/25/2024 5:55 AM [facility] ANION GAP 3.2 2.0 - 10.0 MMOL/L 09/25/2024 5:55 AM [facility] OSMOLALITY (CALC) 287 MOSM/KG 025 5:55 AM [facility] Comment:REFERENCE RANGE NOT ESTABLISHED GFR ESTIMATE >90 >90 ML/MIN/1. 73 M2 09/25/2024 5:55 AM [facility] GFR NOTES GFR REFERENCE S: 09/25/2024 5:55 AM [facility] Comment: THE ESTIMATED GFR IS CALCULATED USING THE 2020 CKD-EPI EQUATION. THE FOLLOWING CATEGORIES FOR GRADING RENAL FUNCTION ARE RECOMMENDED BY THE [employer] ([email or web address] 2012 CLINICAL PRACTICE GUIDELINE). G1,NORMAL OR HIGH: >89 ml/min/1.73 m2 G2,MILDLY DECREASED: 60-89 ml/min/1.73 m2 G3A,MILDLY TO MODERATELY DECREASED: 45-59 ml/min/1.73 m2 G3B,MODERATELY TO SEVERELY DECREASED: 30-44 ml/min/1.73 m2 G4,SEVERELY DECREASED: 15-29 ml/min/1.73 m2 G5,KIDNEY FAILURE: <15 ml/min/1.73 m2 09/25/2024 5:18 AM GOAT FARMER us Nina Gamez MD LABORATORY Final Result [facility] [address] [place] [address], [phone] * (ABNORMAL) CBC W/DIFF AUTOMATED (09/25/2024 5:18 AM GOAT FARMER) Only the most recent of6 resultswithin the time period is included. WBC 6.65 4.00 - 10.80 x10'3/uL 09/25/2024 5:38 AM GOAT FARMER [facility] RBC 4.99 4.50 - 6.10 x10'6/uL 09/25/2024 5:38 AM GOAT FARMER [facility] HGB 14.7 12.0 - 16.0 G/DL 09/25/2024 5:38 AM GOAT FARMER [facility] HCT 43.4 37.0 - 52.0 % 09/25/2024 5:38 AM GOAT FARMER [facility] MCV 87.0 78.0 - 100.0 FL 09/25/2024 5:38 AM GOAT FARMER [facility] MCH 29.5 27.0 - 31.0 PG 09/25/2024 5:38 AM GOAT FARMER [facility] MCHC 33.9 33.0 - 36.0 G/DL 09/25/2024 5:38 AM [facility] RDW 13.9 11.5 - 14.5 % 09/25/2024 5:38 AM [facility] PLT 216 150 - 350 x10'3/uL 09/25/2024 5:38 AM [facility] MPV 9.3 7.4 - 10.4 FL 09/25/2024 5:38 AM [facility] DIFFERENTIAL TYPE MANUAL DIFFERENTIAL 09/25/2024 6:09 AM [facility] NRBC % 0.0 % 09/25/2024 6:09 AM [facility] SEG NEUTROPHILS 59 % 6:09 AM [facility] LYMPHOCYTES 30 % 09/25/2024 6:09 AM [facility] MONOCYTES 10 % 09/25/2024 6:09 AM [facility] EOSINOPHILS 0 % 09/25/2024 6:09 AM [facility] BASOPHILS 0 % 09/25/2024 6:09 AM [facility] METAMYELOCYTES 1 % 09/25/2024 6:09 AM [facility] ABS. NEUTROPHILS 3.92 1.60 - 8.30 x10'3/uL 09/25/2024 6:09 AM [facility] ABS. LYMPHOCYTES 2.00 0.80 - 4.70 x10'3/uL 09/25/2024 6:09 AM [facility] ABS. MONOCYTES 0.67 0.00 - 1.50 x10'3/uL 09/25/2024 6:09 AM [facility] ABS. EOSINOPHILS 0.00 0.00 - 0.40 x10'3/uL 09/25/2024 6:09 AM [facility] ABS. BASOPHILS 0.00 0.00 - 0.20 x10'3/uL 09/25/2024 6:09 AM [facility] ABS. METAMYELOCYTES 0.07(H) 0.00 x10'3/uL 09/25/2024 6:09 AM [facility] ABS. NUCLEATED RBC'S 0.00 0.00 - 0.01 x10'3/uL 09/25/2024 6:09 AM [facility] RBC MORPHOLOGY SLIDE REVIEWED 2024 6:09 AM GOAT FARMER [facility] POIKLO SLIGHT 09/25/2024 6:09 AM GOAT FARMER [facility] OVALOCYTES PRESENT 09/25/2024 6:09 AM GOAT FARMER [facility] ACANTHOCYTES PRESENT 09/25/2024 6:09 AM GOAT FARMER [facility] PLT EST. ADEQUATE 09/25/2024 6:09 AM [facility] WBC MORPHOLOGY SEE NOTE 09/25/2024 6:09 AM [facility] Comment:Reactive lymphocytes present. 09/25/2024 5:18 AM GOAT FARMER us Nina Gamez MD LABORATORY Final Result Performing Organization Address City/[facility]/ZIP Co de Phone Number [facility] [address] [place] [address], [phone] * PHOSPHORUS, INORGANIC PHOSPHATE (09/25/2024 5:18 AM GOAT FARMER) Only the most recent of5 resultswithin the time period is included. PHOSPHORUS 2.8 2.5 - 4.9 MG/DL 09/25/2024 5:55 AM GOAT FARMER [facility] 09/25/2024 5:18 AM GOAT FARMER us Nina Gamez MD LABORATORY Final Result Performing Organization Address [facility]/ZIP Co de Phone Number [facility] [address] [place] [address], [phone] * MAGNESIUM (09/25/2024 5:18 AM GOAT FARMER) Only the most recent of5 resultswithin the time period is included. MAGNESIUM 1.8 1.6 - 2.6 MG/DL 09/25/2024 5:55 AM [facility] 09/25/2024 5:18 AM GOAT FARMER Nina Gamez MD LABORATORY Final Result [facility] [address] [place] [address], [phone] * (ABNORMAL) BASIC METABOLIC PANEL (09/24/2024 5:21 AM GOAT FARMER) Only the most recent of3 resultswithin the time period is included. Pathologist [facility] SODIUM S/P/B 138 136 - 145 MMOL/L 09/24/2024 6:39 AM [facility] POTASSIUM S/P/B 3.8 3.5 - 5.1 MMOL/L 09/24/2024 6:39 AM [facility] CHLORIDE S/P/B 102 97 - 115 MMOL/L 09/24/2024 6:39 AM [facility] CO2 32.8(H) 21.0 - 32.0 MMOL/L 09/24/2024 6:39 AM [facility] GLUCOSE 127(H) 74 - 106 MG/DL 09/24/2024 6:39 AM [facility] BUN 19(H) 7 - 18 MG/DL 09/24/2024 6:39 AM [facility] CREATININE S/P/B 0.53(L) 0.70 - 1.30 MG/DL 09/24/2024 6:39 AM [facility] CALCIUM S/P/B 9.5 8.5 - 10.1 MG/DL 09/24/2024 6:39 AM [facility] ANION GAP 3.2 2.0 - 10.0 MMOL/L 09/24/2024 6:39 AM GOAT FARMER [facility] OSMOLALITY (CALC) 290 MOSM/KG 025 6:39 AM GOAT FARMER [facility] Comment:REFERENCE RANGE NOT ESTABLISHED GFR ESTIMATE >90 >90 ML/MIN/1. 73 M2 09/24/2024 6:39 AM GOAT FARMER [facility] GFR NOTES GFR REFERENCE S: 09/24/2024 6:39 AM GOAT FARMER [facility] Comment: THE ESTIMATED GFR IS CALCULATED USING THE 2020 CKD-EPI EQUATION. THE FOLLOWING CATEGORIES FOR GRADING RENAL FUNCTION ARE RECOMMENDED BY THE INTERNATIONAL SOCIETY OF NEPHROLOGY (KDIGO 2012 CLINICAL PRACTICE GUIDELINE). G1,NORMAL OR HIGH: >89 ml/min/1.73 m2 G2,MILDLY DECREASED: 60-89 ml/min/1.73 m2 G3A,MILDLY TO MODERATELY DECREASED: 45-59 ml/min/1.73 m2 G3B,MODERATELY TO SEVERELY DECREASED: 30-44 ml/min/1.73 m2 G4,SEVERELY DECREASED: 15-29 ml/min/1.73 m2 G5,KIDNEY FAILURE: <15 ml/min/1.73 m2 09/24/2024 5:21 AM GOAT FARMER Domeniac Mcgovern MD LABORATORY Final Result [facility] [address] [place] [address], [phone] * (ABNORMAL) POCT ACUTE VENOUS PANEL (09/21/2024 1:22 PM GOAT FARMER) Only the most recent of2 resultswithin the time period is included. SODIUM WHOLE BLOOD 144 138 - 146 mmol/L 09/21/2024 1:23 PM GOAT FARMER [facility] POTASSIUM WHOLE BLOOD 2.9(L) 3.5 - 4.9 mmol/L 09/21/2024 1:23 PM GOAT FARMER [facility] CA IONIZED WH BLOOD 1.01(L) 1.12 - 1.32 mmol/L 09/21/2024 1:23 PM GOAT FARMER [facility] POC PH VENOUS 7.376 7.31 - 7.41 09/21/2024 1:23 PM GOAT FARMER [facility] POC PCO2 VENOUS 37.4(L) 41.0 - 51.0 MMHG 09/21/2024 1:23 PM GOAT FARMER [facility] POC PO2 VENOUS 40 25 - 40 MMHG 09/21/2024 1:23 PM GOAT FARMER [facility] POC HCO3 VENOUS 21.9(L) 23 - 28 MMOL/L 09/21/2024 1:23 PM GOAT FARMER [facility] POC TCO2 VENOUS 23(L) 24 - 29 MMOL/L 09/21/2024 1:23 PM GOAT FARMER [facility] POC BASE DEFICIT VENOUS 3(H) 0 - 2 MMOL/L 09/21/2024 1:23 PM GOAT FARMER [facility] POC HEMATOCRIT 32(L) 38 - 51 % 09/21/2024 1:23 PM GOAT FARMER [facility] TIME TEST WAS PERFORMED: 1322 09/21/2024 1:23 PM GOAT FARMER [facility] 09/21/2024 1:22 PM GOAT FARMER Domenica Mcgovern MD POCT ORDERABLES - DEVICE Final Result [facility] [address] [place] [address], [id number] * USE ECHOCARDIOGRAM (09/21/2024 9:53 AM GOAT FARMER) Anatomical Region Laterality Modality Cardiac Echocardiogram 09/21/2024 7:26 AM GOAT FARMER Narrative 09/21/2024 10:42 PM GOAT FARMER Echocardiography Report Pat.Name: DUONG JENNIFER GONZALEZ Pat.ID: [id number] .Date: 09/21/2024 : [id number] MEKA Rowe EWDPROV EWDPROV Exam Time: 7:26:00 AM Study Type:ECHO WITH CARDIAC DOPPLER COMP Height: 71 in Weight: 155 lb BSA: 1.89 m2 Age: 2 1960,64Y Sex: M BP: 121/75 HR: 87 bpm Sonogrphr: Luis Alberto Marie [facility] Pat. Stat.:Inpatient Room: [place] [address] CPT - 4: 48023 Reason for Study:Hypoxia Procedures: 2D, M-mode, Doppler, Color Flow, Portable Race: W ++++++++++++++++++++++++++++++++++++ SUMMARY: ++++++++++++++++++++++++++++++++++++ The left ventricular size is normal. The calculated ejection fraction is 59.5%. Left ventricular diastolic function is abnormal (grade 1 - impaired relaxation). Wall motion appears normal in all segments. The right ventricle size is normal. The right ventricular function is normal. 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 The sinus of Valsalva measures 3.9cm. Inferior vena cava shows <50% collapse with respiration consistent with elevated right atrial pressure. There is trace mitral regurgitation. There is trace tricuspid regurgitation. ++++++++++++++++++++++++++++++++++++ FINDINGS: ++++++++++++++++++++++++++++++++++++ LV: The left ventricular size is normal. The calculated ejection fraction is 59.5%. The septal E/e' is normal at < 8. The lateral E/e' is indeterminate at 9-11. Left ventricular diastolic function is abnormal (grade 1 - impaired relaxation). WM: Wall motion appears normal in all segments. LVOT: The left ventricular outflow tract size is normal. RV: The right ventricle size is normal. The right ventricular function is normal. IVS: Intraventricular septum is normal. LA: Left atrial size is normal. RA: The right atrial size is normal. 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 VIJAYA: No evidence of pericardial effusion. AO: The sinus of Valsalva measures 3.9cm. PA: Pulmonary artery is normal. SVn: Inferior vena cava is normal. Inferior vena cava shows <50% collapse with respiration consistent with elevated right atrial pressure. AV: The aortic valve is trileaflet. There is no aortic stenosis. There is no evidence of aortic regurgitation. MV: The mitral valve is structurally normal. There is trace mitral regurgitation. PV: The pulmonic valve is normal There is trace pulmonic regurgitation TV: The tricuspid valve appears structurally normal. There is trace tricuspid regurgitation. ++++++++++++++++++++++++++++++++++++ MEASUREMENTS: ++++++++++++++++++++++++++++++++++++ DOPPLER LVOT LVOTpkPG 6.4 mmHg LVOTmnPG 3.1 mmHg LVOTpkVel 126 cm/s (70-110)* LVOT SV 78 ml LVOT TVI 23.5 cm Right Atrium RA Press 8 mmHg AV Forward Flow AV TVI 27.5 cm AV pkPG 8 mmHg AV pkVel 142 cm/s (100-170) Area (TVI) 2.82 cm2 (3-5)* AV mnVel 97.5 cm/s Area (Shane) 2.93 cm2 (3-5)* AV mnPG 4.4 mmHg MV Forward Flow MV DeTm 280 msec MV pkE 66.8 cm/s (60-130) MV E/A 0.8 MV pkA 84.8 cm/s TV Regurg Flow TV pkPG 20 mmHg TV pkVel 224 cm/s (30-70)* Right Ventricle RVsys P 28 mmHg Right Ventricle 14.6 cm/s Lat E' Lat e 7.65 cm/s Lat E/E' Lat E/e 8.7 Med E' Med e 8.1 cm/s Med E/E' Med E/e 8.2 Aortic Valve Aortic Valve Ar 1.49 Aortic Valve Ve 0.89 AV DI Value 0.9 TANVI (VTI) Index Value 1.49 LV Mass 2D Value 98.6 g LV Mass Brbib3J Value 52.2 g/m2 2D Left Ventricle LVIDd 4.07 cm (3.6-5.2) LV EF(Bi-Plane) 59.5 % (63-77)* LVIDs 3.17 cm (2.3-3.9) LVPW LVPWd 0.83 cm Ventricular Septum IVSd 0.8 cm Left Atrium LA a-p 1.9 cm (2.8-3.4)* Aorta Ao Rtd 3.9 cm (zsc 3.5)* Ao Asc 2.7 cm (zsc 0.9) LVOT LVOT 2.05 cm Ratios IVS Inferior vena cava IVC Diam 1.7 cm LA Biplane LAVol I BP 24.8 ml/m2 MMODE TA Tricuspid Annul 2 cm <Electronic Signature> 09/21/2024 10:42 PM Maribel De La Rosa M.D. Procedure Note Maribel De La Rosa MD - 09/21/2024 Echocardiography Report Pat.Name: JENNIFER WATTERS Pat.ID: [id number] St.Date: 09/21/2024 Refer.: [id number] MEKA Rowe EWDPROV EWDPROV Exam Time: 7:26:00 AM Study Type:ECHO WITH CARDIAC DOPPLER COMP Height: 71 in Weight: 155 lb BSA: 1.89 m2 Age: 2 1960,64Y Sex: M BP: 121/75 HR: 87 bpm Sonogrphr: Marie Sahu LOLA Pat. Stat.:Inpatient Room: [place] [address] CPT - 4: 36195 Reason for Study:Hypoxia Procedures: 2D, M-mode, Doppler, Color Flow, Portable Race: W ++++++++++++++++++++++++++++++++++++ SUMMARY: ++++++++++++++++++++++++++++++++++++ The left ventricular size is normal. The calculated ejection fraction is 59.5%. Left ventricular diastolic function is abnormal (grade 1 - impaired relaxation). Wall motion appears normal in all segments. The right ventricle size is normal. The right ventricular function is normal. 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 The sinus of Valsalva measures 3.9cm. Inferior vena cava shows <50% collapse with respiration consistent with elevated right atrial pressure. There is trace mitral regurgitation. There is trace tricuspid regurgitation. ++++++++++++++++++++++++++++++++++++ FINDINGS: ++++++++++++++++++++++++++++++++++++ LV: The left ventricular size is normal. The calculated ejection fraction is 59.5%. The septal E/e' is normal at < 8. The lateral E/e' is indeterminate at 9-11. Left ventricular diastolic function is abnormal (grade 1 - impaired relaxation). WM: Wall motion appears normal in all segments. LVOT: The left ventricular outflow tract size is normal. RV: The right ventricle size is normal. The right ventricular function is normal. IVS: Intraventricular septum is normal. LA: Left atrial size is normal. RA: The right atrial size is normal. 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 VIJAYA: No evidence of pericardial effusion. AO: The sinus of Valsalva measures 3.9cm. PA: Pulmonary artery is normal. SVn: Inferior vena cava is normal. Inferior vena cava shows <50% collapse with respiration consistent with elevated right atrial pressure. AV: The aortic valve is trileaflet. There is no aortic stenosis. There is no evidence of aortic regurgitation. MV: The mitral valve is structurally normal. There is trace mitral regurgitation. PV: The pulmonic valve is normal There is trace pulmonic regurgitation TV: The tricuspid valve appears structurally normal. There is trace tricuspid regurgitation. ++++++++++++++++++++++++++++++++++++ MEASUREMENTS: ++++++++++++++++++++++++++++++++++++ DOPPLER LVOT LVOTpkPG 6.4 mmHg LVOTmnPG 3.1 mmHg LVOTpkVel 126 cm/s (70-110)* LVOT SV 78 ml LVOT TVI 23.5 cm Right Atrium RA Press 8 mmHg AV Forward Flow AV TVI 27.5 cm AV pkPG 8 mmHg AV pkVel 142 cm/s (100-170) Area (TVI) 2.82 cm2 (3-5)* AV mnVel 97.5 cm/s Area (Shane) 2.93 cm2 (3-5)* AV mnPG 4.4 mmHg MV Forward Flow MV DeTm 280 msec MV pkE 66.8 cm/s (60-130) MV E/A 0.8 MV pkA 84.8 cm/s TV Regurg Flow TV pkPG 20 mmHg TV pkVel 224 cm/s (30-70)* Right Ventricle RVsys P 28 mmHg Right Ventricle 14.6 cm/s Lat E' Lat e 7.65 cm/s Lat E/E' Lat E/e 8.7 Med E' Med e 8.1 cm/s Med E/E' Med E/e 8.2 Aortic Valve Aortic Valve Ar 1.49 Aortic Valve Ve 0.89 AV DI Value 0.9 TANVI (VTI) Index Value 1.49 LV Mass 2D Value 98.6 g LV Mass Rdisr7U Value 52.2 g/m2 2D Left Ventricle LVIDd 4.07 cm (3.6-5.2) LV EF(Bi-Plane) 59.5 % (63-77)* LVIDs 3.17 cm (2.3-3.9) LVPW LVPWd 0.83 cm Ventricular Septum IVSd 0.8 cm Left Atrium LA a-p 1.9 cm (2.8-3.4)* Aorta Ao Rtd 3.9 cm (zsc 3.5)* Ao Asc 2.7 cm (zsc 0.9) LVOT LVOT 2.05 cm Ratios IVS Inferior vena cava IVC Diam 1.7 cm LA Biplane LAVol I BP 24.8 ml/m2 MMODE TA Tricuspid Annul 2 cm <Electronic Signature> 09/21/2024 10:42 PM Maribel De La Rosa M.D. Vilma Garcia MD ECHO Final Result * ECG 12 lead (09/21/2024 8:47 AM GOAT FARMER) Only the most recent of2 resultswithin the time period is included. 09/21/2024 8:47 AM GOAT FARMER Narrative [facility] - 09/21/2024 7:55 PM GOAT FARMER [place] [address] [place] [address] Test Date: 2024-09-21 Pat Name: JENNIFER WATTERS Department: 1 Room: [place] [address] Gender: Male Manager Strategy: Rakesh : 1960 Requested By: VILMA GARCIA Order Number: [id number] Reading MD: Darius Palacios Measurements Intervals [place] Rate: 88 P: 87 MA: 151 QRS: 54 QRSD: 90 T: 74 QT: 355 QTc: 430 Interpretive Statements SINUS RHYTHM POSSIBLE LEFT ATRIAL ENLARGEMENT [-0.1mV P-WAVE IN V1/V2] POSSIBLE RIGHT VENTRICULAR CONDUCTION DELAY [RSR (QR) IN V1/V2] FARMER Procedure Note Darius Palacios MD - 09/21/2024 [place] [address] Test Date: 2024-09-21 Pat Name: JENNIFER WATTERS Department: 1 Room: [place] [address] Gender: Male Manager Strategy: Rakesh : 1960 Requested By: VILMA GARCIA Order Number: [id number] Reading MD: Darius Palacios Measurements Intervals [place] Rate: 88 P: 87 MA: 151 QRS: 54 QRSD: 90 T: 74 QT: 355 QTc: 430 Interpretive Statements SINUS RHYTHM POSSIBLE LEFT ATRIAL ENLARGEMENT [-0.1mV P-WAVE IN V1/V2] POSSIBLE RIGHT VENTRICULAR CONDUCTION DELAY [RSR (QR) IN V1/V2] FARMER us Vilma Garcia MD ECG ORDERABLES Final Result [facility] * (ABNORMAL) LACTIC ACID W REFLEX (SEPSIS) (09/21/2024 7:40 AM GOAT FARMER) Only the most recent of2 resultswithin the time period is included. LACTIC ACID VENOUS 2.1(H) 0.4 - 2.0 MMOL/L 09/21/2024 8:31 AM GOAT FARMER [facility] 09/21/2024 7:40 AM GOAT FARMER us Vilma Garcia MD LABORATORY Final Result Performing Organization Address [facility] Co de Phone Number [facility] [address] [place] [address], [phone] * PROCALCITONIN (PCT) (09/21/2024 7:40 AM GOAT FARMER) Procalcitonin 0.07 0.00 - 0.49 NG/ML 09/21/2024 10:14 AM GOAT FARMER [facility] 09/21/2024 7:40 AM GOAT FARMER us Vilma Garcia MD LABORATORY Final Result Performing Organization Address [facility] de Phone Number [facility] [address] [place] [address], [phone] * MRSA SCREENING (09/21/2024 7:40 AM GOAT FARMER) SPECIMEN SOURCE RESPIRATORY, NOSE 09/21/2024 7:30 AM GOAT FARMER [facility] MRSA BY PCR NASAL METHICILLIN RESISTANT STAPH AUREUS NOT DETECTED METHICILLIN RESISTANT STAPH AUREUS NOT DETECTED 09/22/2024 10:27 AM GOAT FARMER [facility] NASAL STRUCTURE / Unknown 09/21/2024 7:40 AM GOAT FARMER us Vilma Garcia MD MICROBIOLOGY - GENERAL ORDERABL ES Final Result Performing Organization Address [facility] Co de Phone Number [facility] [address] [place] [address], [phone] * CORTISOL, TOTAL (09/21/2024 7:40 AM GOAT FARMER) CORTISOL 7.6 mcg/dL 09/21/2024 8:58 AM GOAT FARMER [facility] Comment: A.M. SPECIMENS: 5.3 TO 22.5 mcg/dL P.M. SPECIMENS: 3.4 TO 16.8 mcg/dL ASSAY PERFORMED BY CHEMILUMINESCENCE METHODOLOGY USING [employer] XPT REAGENT. PATIENT RESULTS DETERMINED BY ASSAYS USING DIFFERENT MANUFACTURERS FOR METHODS MAY NOT BE COMPARABLE. 09/21/2024 7:40 AM GOAT FARMER us Vilma Garcia MD LABORATORY Final Result Performing Organization Address [facility] Co de Phone Number [facility] [address] [place] [address], [phone] * CULTURE, BACTERIA, BLOOD (09/21/2024 7:40 AM GOAT FARMER) SPEC DESCRIPTION BLOOD 09/21/2024 6:40 AM GOAT FARMER [facility] SPECIAL REQUESTS NO SPECIAL REQUEST 09/21/2024 6:40 AM GOAT FARMER [facility] CULTURE RESULT NO GROWTH 5 DAYS 09/26/2024 4:38 PM GOAT FARMER [facility] BLOOD SPECIMEN OBTAINED FOR BLOOD CULTURE / Unknown 09/21/2024 7:40 AM GOAT FARMER 09/21/2024 8:02 AM GOAT FARMER us Vilma Garcia MD MICROBIOLOGY - GENERAL ORDERABL ES Final Result Performing Organization Address City/[facility]/ZIP Co de Phone Number [facility] [address] [place] [address], [phone] * AMMONIA (09/21/2024 7:40 AM GOAT FARMER) AMMONIA 23 11 - 32 UMOL/L 09/21/2024 8:29 AM GOAT FARMER [facility] 09/21/2024 7:40 AM GOAT FARMER Vilma Garcia MD LABORATORY Final Result [facility] [address] [place] [address], [phone] * (ABNORMAL) BIOFIRE PCR UPPER RESPIRATORY PROFILE (RESPIRATORY PCR PANEL 2) (09/21/2024 7:29 AM GOAT FARMER) ADENOVIRUS PCR (RESP) NOT DETECTED NOT DETECTED 09/21/2024 9:08 AM GOAT FARMER [facility] CORONAVIRUS 229E PCR (RESP) NOT DETECTED NOT DETECTED 09/21/2024 9:08 AM GOAT FARMER [facility] CORONAVIRUS HKU1 PCR (RESP) NOT DETECTED NOT DETECTED 09/21/2024 9:08 AM [facility] CORONAVIRUS NL63 PCR (RESP) NOT DETECTED NOT DETECTED 09/21/2024 9:08 AM GOAT FARMER [facility] CORONAVIRUS OC43 PCR (RESP) NOT DETECTED NOT DETECTED 09/21/2024 9:08 AM GOAT FARMER [facility] METAPNEUMOVIRUS PCR (RESP) NOT DETECTED NOT DETECTED 09/21/2024 9:08 AM [facility] RHINOVIRUS/ENTEROV IRUS PCR (RESP) NOT DETECTED NOT DETECTED 09/21/2024 9:08 AM [facility] INFLUENZA A PCR (RESP) DETECTED(AA ) NOT DETECTED 09/21/2024 9:08 AM [facility] INFLUENZA A/H1-2009 PCR (RESP) DETECTED(AA ) NOT DETECTED 09/21/2024 9:08 AM [facility] Comment: RESULTS PHONED TO AND READ BACK BY: WANDA ASIF [id number] 09/21/24 EKG INFLUENZA B PCR (RESP) NOT DETECTED NOT DETECTED 09/21/2024 9:08 AM GOAT FARMER [facility] PARAINFLUENZA 1 PCR (RESP) NOT DETECTED NOT DETECTED 09/21/2024 9:08 AM [facility] PARAINFLUENZA 2 PCR (RESP) NOT DETECTED NOT DETECTED 09/21/2024 9:08 AM GOAT FARMER [facility] PARAINFLUENZA 3 PCR (RESP) NOT DETECTED NOT DETECTED 09/21/2024 9:08 AM [facility] PARAINFLUENZA 4 PCR (RESP) NOT DETECTED NOT DETECTED 09/21/2024 9:08 AM [facility] RSV PCR (RESP) NOT DETECTED NOT DETECTED 09/21/2024 9:08 AM GOAT FARMER [facility] B PARAPERTUSIS PCR (RESP) NOT DETECTED NOT DETECTED 09/21/2024 9:08 AM [facility] BORDETELLA PERTUSSIS PCR (RESP) NOT DETECTED NOT DETECTED 09/21/2024 9:08 AM [facility] CHLAMYDOPHILA PNEUMONIAE PCR (RESP) NOT DETECTED NOT DETECTED 09/21/2024 9:08 AM [facility] MYCOPLASMA PNEUMONIAE PCR (RESP) NOT DETECTED NOT DETECTED 09/21/2024 9:08 AM GOAT FARMER [facility] CORONAVIRUS SARS COV 2 PCR (RESP) NOT DETECTED NOT DETECTED 09/21/2024 9:08 AM [facility] NASOPHARYNGEAL SWAB / Unknown 09/21/2024 7:29 AM GOAT FARMER Vilma Garcia MD MICROBIOLOGY - GENERAL ORDERABL ES Final Result Performing Organization Address City/State/[facility] Co de Phone Number [facility] [address] [place] [id number], [phone] * (ABNORMAL) HEMOGLOBIN, GLYCOSYLATED (09/21/2024 7:17 AM [employer]) HGB A1C 6.6(H) <5.7 % 09/21/2024 8:15 AM [employer] [facility] ESTIMATED AVG GLUCOSE 143(H) 74 - 114 MG/DL 09/21/2024 8:15 AM [facility] 09/21/2024 7:17 AM [employer] us Vilma Garcia MD LABORATORY Final Result Performing Organization Address [facility] Co de Phone Number [facility] [address] [place] [address], [place] [phone] * PROTHROMBIN TIME, VENOUS (09/21/2024 7:17 AM [employer]) [facility] PROTIME 10.8 9.4 - 12.5 SEC 09/21/2024 7:54 AM [employer] [facility] INR 0.9 0.8 - 1.1 09/21/2024 7:54 AM [employer] [facility] 09/21/2024 7:17 AM [employer] us Vilma Garcia MD LABORATORY Final Result Performing Organization Address [facility] de Phone Number [facility] [address] [place] [address], [place] [phone] * (ABNORMAL) LACTIC ACID - SINGLE (09/21/2024 7:17 AM [employer]ER) [facility] LACTIC ACID VENOUS 2.4(H) 0.4 - 2.0 MMOL/L 09/21/2024 8:03 AM [employer] [facility] Comment: AN ORDER FOR A REPEAT LACTIC ACID TEST IS REQUIRED WITHIN 6 HOURS OF DIAGNOSIS ON A PATIENT WITH SEVERE SEPSIS. 09/21/2024 7:17 AM [employer] us Vilma Garcia MD LABORATORY Final Result Performing Organization Address [facility] Co de Phone Number [facility] [address] [place] [address], [phone] * TROPONIN, QUANT (09/21/2024 7:17 AM [employer]) Only the most recent of2 resultswithin the time period is included. [facility] TROPONIN I HIGH SENSITIVITY 7 0 - 78 ng/L 09/21/2024 8:09 AM GOAT FARMER [facility] 09/21/2024 7:17 AM GOAT FARMER Vilma Garcia MD LABORATORY Final Result Performing Organization Address [facility] Co de Phone Number [facility] [address] [id number], [id number] * (ABNORMAL) THYROID STIM HORMONE, TSH (09/21/2024 7:17 AM GOAT FARMER) [facility] TSH 0.273(L) 0.358 - 3.740 uIU/ML 09/21/2024 8:09 AM GOAT FARMER [facility] Comment: ASSAY PERFORMED BY CHEMILUMINESCENCE METHODOLOGY USING HOMEOSTASIS LABS [facility]. PATIENT RESULTS DETERMINED BY ASSAYS USING DIFFERENT MANUFACTURERS FOR METHODS MAY NOT BE COMPARABLE. 09/21/2024 7:17 AM GOAT FARMER Vilma Garcia MD LABORATORY Final Result Performing Organization Address [facility] Co de Phone Number [facility] [address] [place] [address], [id number] * LIPASE (09/21/2024 7:17 AM GOAT FARMER) [facility] LIPASE 15 13 - 75 UNITS/L 09/21/2024 8:09 AM GOAT FARMER [facility] 09/21/2024 7:17 AM GOAT FARMER us Vilma Garcia MD LABORATORY Final Result Performing Organization Address [facility] Co de Phone Number [facility] [address] [place] [address], [place] [phone] * (ABNORMAL) Blood gas, venous (09/20/2024 8:57 PM GOAT FARMER) Only the most recent of4 resultswithin the time period is included. PH VENOUS 7.36 7.32 - 7.43 09/20/2024 9:04 PM GOAT FARMER [facility] PCO2 VENOUS 56.0 MMHG 09/20/2024 9:04 PM [facility] Comment:NO REFERENCE RANGE H BEEN ESTABLISHED PO2 VENOUS 61.0 MM HG 09/20/2024 9:04 PM [facility] Comment:NO REFERENCE RANGE H BEEN ESTABLISHED TOTAL CO2 VENOUS 33.3(H) 22.0 - 26.0 MMOL/L 09/20/2024 9:04 PM [facility] BASE EXCESS VENOUS 4.6 MMOL/L 09/20/2024 9:04 PM [facility] Comment:NO REFERENCE RANGE H BEEN ESTABLISHED O2 SAT VENOUS 90 % 09/20/2024 9:04 PM [facility] Comment:NO REFERENCE RANGE H BEEN ESTABLISHED BICARB VENOUS 31.6(H) 22.0 - 29.0 MMOL/L 09/20/2024 9:04 PM [facility] O2 ADMIN VENOUS 35% 8:57 PM [facility] 09/20/2024 8:57 PM GOAT FARMER us Geovanny Gallardo MD LABORATORY Final Res ult [facility] [address] [place] [address], * Critical Care (09/20/2024 7:05 PM GOAT FARMER) Narrative Genaro Cordoba MD - 09/20/2024 7:05 PM GOAT FARMER Genaro Cordoba MD 09/20/2024 7:39 PM Critical Care Performed by: Genaro Cordoba MD Authorized by: Genaro Cordoba MD Critical care provider statement: Critical care time (minutes): 35 Critical care time was exclusive of: Separately billable procedures and treating other patients and teaching time Critical care was necessary to treat or prevent imminent or life-threatening deterioration of the following conditions: Respiratory failure Critical care was time spent personally by me on the following activities: Development of treatment plan with patient or surrogate, evaluation of patient's response to treatment, examination of patient, obtaining history from patient or surrogate, ordering and performing treatments and interventions, ordering and review of laboratory studies, ordering and review of radiographic studies, pulse oximetry, re-evaluation of patient's condition and review of old charts I assumed direction of critical care for this patient from another provider in my specialty: no us Genaro Cordoba MD PROCEDURE/MINOR SURGICAL ORDERAB LES Final Result * CTA CHEST PE PROTOCOL (09/20/2024 4:37 PM GOAT FARMER) Anatomical Region Laterality Modality Chest Computed Tomogra phy 09/20/2024 5:01 PM GOAT FARMER Impressions 09/20/2024 5:04 PM GOAT FARMER IMPRESSION: 1) No CT evidence for acute pulmonary embolism. 2. Mild changes of emphysema in both upper lobes. 3. Scattered ill-defined areas of groundglass and tree-in-bud opacity suspicious for acute viral pneumonitis. No airspace consolidation or pleural effusion. Ordered By: GENARO CORDOBA Interpreted By: Stanislav Gloria MD, 09/20/2024 5:01 PM Narrative 09/20/2024 5:04 PM GOAT FARMER [address] [place] [address] Examination: CTA CHEST PE PROTOCOL Exam time: 09/20/2024 4:18 PM Clinical history: Hypoxia, elevated d-dimer Comparison: 08/25/2024 Technique: Axial images obtained from lung apices to adrenal glands with intravenous injection of 95 mL Isovue 370 contrast using low-dose CTA technique. Sagittal and coronal MIP reconstruction. Findings: No evidence of axillary nor supraclavicular lymphadenopathy. No significant mediastinal nor hilar lymphadenopathy. Thoracic aortic arch and proximal great vessels are grossly unremarkable. There is no CT evidence for acute pulmonary embolism. Cardiac chambers are normal in size. Mild coronary atherosclerotic calcification. No pericardial thickening or pericardial effusion. No significant hiatal hernia. Pulmonary parenchymal images demonstrate mild findings of emphysema in both upper lobes. There are some minimal scattered areas of groundglass and tree-in-bud opacity bilaterally suspicious for acute bilateral pneumonitis. No airspace consolidation. No pleural effusion. Benign calcified granulomata in the left hilum and left lower lobe. Procedure Note Stanislav Gloria MD - 09/20/2024 [facility] [address] [facility] [place] [address] Examination: CTA CHEST PE PROTOCOL Exam time: 09/20/2024 4:18 PM Clinical history: Hypoxia, elevated d-dimer Comparison: 08/25/2024 Technique: Axial images obtained from lung apices to adrenal glands withintravenous injection of 95 mL Isovue 370 contrast using low-dose CTAtechnique. Sagittal and coronal MIP reconstruction. Findings: No evidence of axillary nor supraclavicular lymphadenopathy. Nosignificant mediastinal nor hilar lymphadenopathy. Thoracic aortic archand proximal great vessels are grossly unremarkable. There is no CTevidence for acute pulmonary embolism. Cardiac chambers are normal insize. Mild coronary atherosclerotic calcification. No pericardialthickening or pericardial effusion. No significant hiatal hernia. Pulmonary parenchymal images demonstrate mild findings of emphysema inboth upper lobes. There are some minimal scattered areas of groundglassand tree-in-bud opacity bilaterally suspicious for acute bilateralpneumonitis. No airspace consolidation. No pleural effusion. Benigncalcified granulomata in the left hilum and left lower lobe. IMPRESSION: 1) No CT evidence for acute pulmonary embolism. 2. Mild changes of emphysema in both upper lobes. 3. Scattered ill-defined areas of groundglass and tree-in-bud opacitysuspicious for acute viral pneumonitis. No airspace consolidation orpleural effusion. Ordered By: GENARO CORDOBA Interpreted By: Stanislav Gloria MD, 09/20/2024 5:01 PM us Genaro Cordoba MD CT Final Result * (ABNORMAL) D-DIMER, QUANTITATIVE (09/20/2024 2:47 PM GOAT FARMER) D-DIMER 819(H) 0 - 500 ng{FEU}/mL 09/20/2024 3:38 PM GOAT FARMER [facility] Comment: D-Dimer values less than or equal to 500 ng/mL FEU have a negative predictive value of >95% for exclusion of deep vein thrombosis and pulmonary embolism. In patients over 50 (who tend to have higher normal baseline D-Dimer values), recent studies suggest age-adjusted D-Dimer cutoff values (calculated as: age [years] x 10 ng/mL) result in equivalent outcomes and no additional false negative findings. 09/20/2024 2:47 PM GOAT FARMER us Genaro Cordoba MD LABORATORY Final Result Performing Organization Address [facility] Co de Phone Number [facility] [address] [place] [address], * CORONAVIRUS (COVID-19) ANTIGEN (09/20/2024 2:40 PM GOAT FARMER) CORONAVIRUS ANTIGEN IA NEGATIVE NEGATIVE 09/20/2024 3:48 PM GOAT FARMER [facility] Comment: NEGATIVE RESULTS DO NOT RULE OUT SARS-COV-2 INFECTION AND SHOULD NOT BE USED THE SOLE BASIS FOR TREATMENT OR PATIENT MANAGEMENT DECISIONS, INCLUDING INFECTION CONTROL DECISIONS. NEGATIVE RESULTS SHOULD BE CONSIDERED IN THE CONTEXT OF A PATIENT'S RECENT EXPOSURES, HISTORY AND THE PRESENCE OF CLINICAL SIGNS AND SYMPTOMS CONSISTENT WITH COVID 19. THIS TEST HAS BEEN AUTHORIZED BY THE FDA UNDER AN EMERGENCY USE AUTHORIZATION (EUA) FOR USE BY AUTHORIZED LABORATORIES. SPECIMEN TYPE NASAL 09/20/2024 2:52 PM GOAT FARMER [facility] NASAL NASAL STRUCTURE / Unknown 09/20/2024 2:40 PM GOAT FARMER us Genaro Cordoba MD MICROBIOLOGY - GENERAL ORDERABLE S Final Result Performing Organization Address [facility] Co de Phone Number [facility] [address] [place] [id number], * (ABNORMAL) INFLUENZA A & B (09/20/2024 2:40 PM GOAT FARMER) SPECIMEN TYPE (INFLUENZA) NASAL 09/20/2024 2:52 PM GOAT FARMER [facility] INFLUENZA A POSITIVE(A) NEGATIVE 09/20/2024 3:34 PM GOAT FARMER [facility] Comment: CALLED TO CECILY SARGENT 1534 09/20/24 AFW READ BACK AND VERIFIED INFLUENZA B NEGATIVE NEGATIVE 09/20/2024 3:34 PM GOAT FARMER [facility] NASAL STRUCTURE / Unknown 09/20/2024 2:40 PM GOAT FARMER us Genaro Cordoba MD MICROBIOLOGY - GENERAL ORDERABLE S Final Result [facility] [address] [place] [address], * CT CHEST WO CON (08/25/2024 10:37 AM GOAT FARMER) Anatomical Region Laterality Modality Chest Computed Tomogra phy 08/30/2024 12:0 1 PM GOAT FARMER Impressions 08/30/2024 12:10 PM GOAT FARMER IMPRESSION: 1. Favored benign pulmonary findings as described. Given the smoking history, low-dose screening chest CT in one year is suggested. 2. Coronary artery disease. 3. Centrilobular emphysema. Ordered By: NOMAN LINTON Interpreted By: Gustabo Mabry MD, 08/30/2024 12:01 PM Narrative 08/30/2024 12:10 PM GOAT FARMER [address] [address] [facility] [place] [address] Examination: CT of the chest without contrast. Exam time: 1041 hours. Clinical history: Follow-up of abnormal CT scan. Smoker. Comparison: 03/18/2024, 09/04/2023, 03/12/2023, 02/27/2022, 01/03/2021. Technique: Spiral scanning was performed through the chest without contrast. Sagittal and coronal reconstructions were performed from the data set. A dose lowering technique was used for this procedure, which may include, but is not limited to, dose reduction techniques, automated exposure control, the use of iterative reconstruction and ALARA/Image Gently techniques. Findings: Calcific coronary disease and atherosclerotic calcification of the aorta and arch vessels again noted. A physiologic volume of pericardial fluid is present. The heart and great vessels are otherwise unremarkable for the noncontrast technique. Calcified left hilar lymph nodes are again noted, compatible with old granulomatous disease. No hilar or mediastinal adenopathy is identified. No endobronchial abnormality is identified. Changes of centrilobular emphysema and calcified pulmonary granulomas again noted. Multiple small bilateral ill-defined and nodular opacities are again demonstrated with waxing and waning over time and overall considered improved from 03/18/2024. Infectious/inflammatory etiology is again favored although the findings overall remain objectively nonspecific. Molded Grid And Parts Inspector findings are annotated on the lung window series images. There is no dominant mass, suspicious nodule or confluent airspace opacity. No pleural abnormalities are seen. The chest wall structures are unchanged. Plate and screw fusion in the lower cervical spine and epidural stimulator lead again noted. The included sections through the upper abdomen show no acute process. Procedure Note Gustabo Mabry MD - 08/30/2024 [facility] [address] [facility] [place] [address] Examination: CT of the chest without contrast. Exam time: 1041 hours. Clinical history: Follow-up of abnormal CT scan. Smoker. Comparison: 03/18/2024, 09/04/2023, 03/12/2023, 02/27/2022, 01/03/2021. Technique: Spiral scanning was performed through the chest withoutcontrast. Sagittal and coronal reconstructions were performed from thedata set. A dose lowering technique was used for this procedure, whichmay include, but is not limited to, dose reduction techniques, automatedexposure control, the use of iterative reconstruction and ALARA/ImageGently techniques. Findings: Calcific coronary disease and atherosclerotic calcification ofthe aorta and arch vessels again noted. A physiologic volume ofpericardial fluid is present. The heart and great vessels are otherwiseunremarkable for the noncontrast technique. Calcified left hilar lymphnodes are again noted, compatible with old granulomatous disease. No hilaror mediastinal adenopathy is identified. No endobronchial abnormality isidentified. Changes of centrilobular emphysema and calcified pulmonarygranulomas again noted. Multiple small bilateral ill-defined and nodularopacities are again demonstrated with waxing and waning over time andoverall considered improved from 03/18/2024. Infectious/inflammatoryetiology is again favored although the findings overall remain objectivelynonspecific. Molded Grid And Parts Inspector findings are annotated on the lung windowseries images. There is no dominant mass, suspicious nodule or confluentairspace opacity. No pleural abnormalities are seen. The chest wallstructures are unchanged. Plate and screw fusion in the lower cervicalspine and epidural stimulator lead again noted. The included sectionsthrough the upper abdomen show no acute process. IMPRESSION: 1. Favored benign pulmonary findings as described. Given the smokinghistory, low-dose screening chest CT in one year is suggested. 2. Coronary artery disease. 3. Centrilobular emphysema. Ordered By: NOMAN LINTON Interpreted By: Gustabo Mabry MD, 08/30/2024 12:01 PM Noman Linton MD CT Final Res ult * COLONOSCOPY (02/15/2021 8:22 AM CDT) Biju Duncan MD GI PROCEDURE ORDERABLES Final Result * LIPID PANEL (OUTSIDE LAB) (11/05/2017) CHOLESTEROL 113 TRIGLYCERIDES 93 HDL 43 LDL (CALCULATED) 51 CHOL/HDL RATIO 2.6 11/05/2017 [facility] LAB-OUTSIDE/ABSTRACTED Final Result from Last 3 Months or Most Recently [place] [address] [employer] Advance Directives * Full Code (Latest Code Status on File) Date Activated Date Inactivated Comments 09/21/2024 6:39 AM 09/26/2024 3:59 PM Care Teams Heat Regulator Relationship Specialty Start Date End Date Stanislaw Murphy MD [address] [place] [address] PCP - General INTERNAL MEDICINE 09/04/23 Maribel De La Rosa MD [address] [place] [address] Consulting Physician CARDIOVASCULAR DISEASE 01/31/24
--- OUTSIDE RECORDS SUMMARY | 2024-10-10 18:35 | XMS_ITS | Continuity of Care Document ---
Author Organization [facility] Address [address] [place] [address] [place] [address] Phone Care Team Providers Care Supervisor Powder And Primer Canning Name Role Phone Martinez OD, Stephane Unavailable Unavailable Procedures Procedure Date Eye Exam & Treatment Refraction Eye Exam & Treatment Refraction Advance Directives Directive Yes / No Effective Date File Name No Information Encounters Encounter Description Practice Location Reason(s) For Visit Diagnoses Date Provider Providers Copied on Encounter [facility], [address] [place] [address] [address], [place], [place], [id number], tel:[phone] [facility] No Information November- 7-201 0 Martinez OD Stephane. [address] , [address], [place], [place], [facility], [place]. tel:[phone] [facility], [address] [place] [address] [address], [place], [place], [id number], tel:[phone] [facility] No Information 0-200 9 Martinez OD Stephane. [address] , [address], [place], [address], [place]. tel:[phone] Family History Family Member Type Diagnosis Age At Onset No Information Payers Payer name Insurance type Covered constitution party ID Authorerickaa rohan(s) Medicaid [facility] [id number] Social History Type Description Quantity Date Captured Comments Sex Male Smoking Status No Information Chief Complaint And Reason For Visit No Information Reason For Referral Reason For Referral No Information History Of Present Illness Encounter Date Complaint History Of Prese nt Illness No Information Functional Status Date Functional Assessmen t No Information Instructions Date Instruction Additional Infor mation No Information Assessments Type Assessment Date No Information Patient Care Teams Name Effective Dates (start - stop) Status Members No Information
--- OUTSIDE RECORDS SUMMARY | 2024-10-10 18:35 | XMS_ITS | Encounter Summary ---
Author Organization [facility] Address [facility] [place] [address] Care Team Providers Care Spindle Setter Name Role Phone Stanislaw Murphy MD Primary Care Provider [phone] Maribel De La Rosa MD Unavailable Reason for Visit * Reason Onset Date Comments Called To Cancel Office Appt. 09/21/2024 Encounter Details Date Type Department Care Team (Late st Contact Info) Description 09/21/2024 Telephone [facility] Multispecial[facility] [address] [place] [address] Yomaira Powell MD [address] [place] [address] Called To Cancel Office Appt. Social History Tobacco Use Types Packs/Day Years Used Date Smoking Tobacco: Every Day Cigarettes 1 42 Smokeless Tobacco: Never Alcohol Use Standard Drinks/Week Comments No 0 (1 standard drink = 0.6 oz pur e alcohol) [facility] Utilities Answer Date Recorded In the past 12 months has [employer], gas, oil, or water [employer] threatened to shut off services in your [...] money to buy more. Never true 09/21/19 Within the past 12 months, t he [...] any time in the past 12 m [facility], were you homeless or living in a half-way (including now)? 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 Not on file Not on file No t on file documented as of this encounter Functional Status * Question Answer Date of Assessment Author Status Do you have serious difficulty walking or climbing stairs? No 09/21/2024 6:43 AM Quan Minor RN Activ e * Question Answer Date of Assessment Author Status Do you have difficulty dressing or bathing? No 09/21/2024 6:43 AM Quan Minor RN A ctive Because of a physical, mental, or emotional condition, do you have difficulty doing errands alone such as visiting a doctor's office or shopping? No 09/21/2024 6:43 AM Andres Minor RN Active * Are you deaf or do you have serious difficulty hearing Answer Date of Assessment Author Status No 09/21/2024 6:43 AM Quan Minor RN Active * Are you blind or do you have serious difficulty seeing, even when wearing glasses? Answer Date of Assessment Author Status No 09/21/2024 6:43 AM Quan Minor RN Active * Do you have serious difficulty walking or climbing stairs? Answer Date of Assessment Author Status No 09/21/2024 6:43 AM Quan Minor RN Active * Do you have difficulty dressing or bathing? Answer Date of Assessment Author Status No 09/21/2024 6:43 AM Quan Minor RN Active * Because of a physical, mental, or emotional condition, do you have difficulty doing errands alone such as visiting a doctor's office or shopping? Answer Date of Assessment Author Status No 09/21/2024 6:43 AM Quan Minor RN Active documented as of this encounter Mental Status * Question Answer Entry Date Author Status Because of a physical, mental, or emotional condition, do you have serious difficulty concentrating, remembering, or making decisions? No 09/21/2024 6:43 AM Quan Minor RN A ctive * Because of a physical, mental, or emotional condition, do you have serious difficulty concentrating, remembering, or making decisions? Answer Entry Date Author Status No 09/21/2024 6:43 AM Quan Minor RN Active documented in this encounter Progress Notes * Page Bello - 09/21/2024 3:39 PM CST Caller name: Jenna Call details: Alejandro in ICU at 09/22 appt canceled ING STITCHER documented in this encounter Plan of Treatment Upcoming Encounters Date Type Department Care Team (Late Contact Info) Description 11/28/2024 12:00 PM CDT Office Visit [facility] [place] [id number] Maribel De La Rosa MD [address] [place] [address] documented as of this encounter Visit Diagnoses Not on filedocumented in this encounter Additional Health Concerns Infection Onset Date Last Indicated Resolved Time Influenza - Seasonal Comment:[facility] notified of ICU influenza admission 09/20/2024 09/21/2024 10/01/2024 12:33 AM MARKING STITCHER Assessment Noted Time PHQ-9 Depression Total Score: 2 03/20/20 21 11:14 AM CDT documented as of this encounter Care Teams Spindle Setter Relationship Specialty Start Date End Date Stanislaw Murphy MD [address] [place] [address] PCP - General INTERNAL MEDICINE 09/04/23 Maribel De La Rosa MD [address] [place] [address] Consulting Physician CARDIOVASCULAR DISEASE 01/31/24 documented as of this encounter
--- OUTSIDE RECORDS SUMMARY | 2024-10-10 18:35 | XMS_ITS | Encounter Summary ---
Author Organization [facility] Address [facility] [place] [address] Care Team Providers Care Excel Developer Name Role Phone Kingsley Saul Motta MD Primary Care Provider [phone] Alejandro Red MD Unavailable Unavailabl e María Saldaña APRN SAMPLE DRILLER-C Unavailable [phone] Dang Salgado NP Primary Care Provider [phone] Isaac Nicholson MD Primary Care Provider [phone] Stanislaw Murphy MD Primary Care Provider + [phone] Maribel De La Rosa MD Unavailable Encounter Details Date Type Department Care Team (Late st Contact Info) Description 10/10/2017 Abstract SJS CONVERSION [address] [place] [address] , Generic Conversion, Social History Tobacco Use Types Packs/Day Years Used Date Smoking Tobacco: Former Comments:quit 1 week ago is on chantix Alcohol Use Standard Drinks/Week Comments No 0 (1 standard drink = 0.6 oz pur e alcohol) Sex and Gender Information Value Date Recorded Sex Assigned at Male 08/25/2024 10:28 AM SALES AND LEASING AGENT Legal Sex Male 11:19 PM CDT Gender Identity Not on file Sexual Orientation Not on file 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 Not on file No t on file documented as of this encounter Plan of Treatment Upcoming Encounters Date Type Department Care Team (Late st Contact Info) Description 11/28/2024 12:00 PM CDT Office Visit [facility] [place] [address] Maribel De La Rosa MD [address] [place] [address] documented as of this encounter Visit Diagnoses Not on filedocumented in this encounter Additional Health Concerns Infection Onset Date Last Indicated Resolved Time COVID-19 Rule Out 12/11/2020 12/11/2020 12/11/2020 7:42 PM CDT COVID-19 Rule Out 05/31/2021 05/31/2021 05/31/2021 5:58 PM CDT COVID-19 Rule Out 05/31/2021 05/31/2021 06/01/2021 8:07 PM CDT Respiratory Rule-Out 09/20/2024 09/20/2024 025 3:34 PM SALES AND LEASING AGENT COVID-19 Rule Out 09/20/2024 09/20/2024 09/20/2024 3:48 PM SALES AND LEASING AGENT Influenza - Seasonal Comment:[facility] notified of ICU influenza admission 09/20/2024 09/21/2024 10/01/2024 12:33 AM SALES AND LEASING AGENT documented as of this encounter Care Teams Excel Developer Relationship Specialty Start Date End Date Saul Wynn MD [address] [place] [address] PCP - General FAMILY PRACTICE 09/10/16 05/24/20 Dang Salgado NP [address] [place] [address] PCP - General Nurse Practitioner Family 05/25/20 12/10/20 Isaac Nicholson MD [address] [place] [address] PCP - General FAMILY PRACTICE 12/11/20 09/03/23 Stanislaw Murphy MD [address] [place] [phone] PCP - General INTERNAL MEDICINE 09/04/23 Alejandro Red MD [address] [place] [address] [place] Standards Engineer CARDIOVASCULAR DISEASE 09/10/16 01/30/24 María Saldaña, LINE INSTALLER, SAMPLE DRILLER-C [address] [facility] [address] [place] [phone] [place] Standards Engineer CARDIOVASCULAR DISEASE 11/09/17 01/30/24 Maribel De La Rosa MD [address] [place] [address] Consulting Physician CARDIOVASCULAR DISEASE 01/31/24 documented as of this encounter
--- OUTSIDE RECORDS SUMMARY | 2024-10-10 18:35 | XMS_ITS ---
Author Organization [facility] Address [address] [place] [address] Phone Care Team Providers Care Terminal Gauger Supervisor Name Role Phone Unavailable Unavailable Unavailable Plan of Treatment No Plan of Treatment Recorded Assessments Includes: Assessments for all patient encounters No Assessments Recorded Medical Equipment - Implanted Devices Includes: Current and historical Devices No Medical Equipment Recorded Medications Administered Includes: Administered Medications in patient's chart No Administered Medications Recorded Results Includes: Results from 10/11/2023 through 10/10/2024 No Results Recorded For Specified Dates History of Present Illness History of Present Illness not supported for this document type No History of Present Illness Recorded Social History No Social History Recorded - Smoking Status Unknown Medical History Includes: Medical History in patient's chart No Medical History Recorded Family History Includes: Family History in patient's chart No Family History Recorded Review of Systems Review of Systems not supported for this document type No Review of Systems Recorded Mental Status No Mental Status Recorded Functional Status No Functional Status Recorded Physical Exam Physical Exam not supported for this document type No Physical Exam Recorded Clinical Notes Includes: Signed Clinical Notes starting from 08/15/2022 No Clinical Notes Recorded
--- OUTSIDE RECORDS SUMMARY | 2024-10-10 18:35 | XMS_ITS | Encounter Summary ---
Author Organization [facility] Address [facility] [place] [address] Care Team Providers Care Strategic Procurement Manager Name Role Phone Stanislaw Murphy MD Primary Care Provider [phone] Maribel De La Rosa MD Unavailable Encounter Details Date Type Department Care Team (Late st Contact Info) Description 09/27/2024 Hospital Follow-up Call [facility] [address] [place] [address] Bri Moreno RN Social History Tobacco Use Types Packs/Day Years Used Date Smoking Tobacco: Every Day Cigarettes 1 42 Smokeless Tobacco: Never Alcohol Use Standard Drinks/Week Comments No 0 (1 standard drink = 0.6 oz pur e alcohol) [facility] Utilities Answer Date Recorded In the past 12 months has e [employer], gas, oil, or water [employer] threatened to shut off services in your [...] any time in the past 12 m [facility], were you homeless or living in a retirement (including now)? 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 Answer Entry Date Author Status No 09/21/2024 6:43 AM Quan Minor RN Active documented in this encounter Plan of Treatment Upcoming Encounters Date Type Department Care Team (Late st Contact Info) Description 11/28/2024 12:00 PM CDT Office Visit [facility] [address] [place] [address] Maribel De La Rosa MD [address] [place] [address] documented as of this encounter Visit Diagnoses Not on filedocumented in this encounter Additional Health Concerns Infection Onset Date Last Indicated Resolved Time Influenza - Seasonal Comment:[facility] notified of ICU influenza admission 09/20/2024 09/21/2024 10/01/2024 12:33 AM FINISHING MACHINE TENDER Assessment Noted Time PHQ-9 Depression Total Score: 2 03/20/20 21 11:14 AM CDT documented as of this encounter Care Teams Strategic Procurement Manager Relationship Specialty Start Date End Date Stanislaw Murphy MD [address] [place] [address] PCP - General INTERNAL MEDICINE 09/04/23 Maribel De La Rosa MD [address] [place] [address] Consulting Physician CARDIOVASCULAR DISEASE 01/31/24 documented as of this encounter
--- OUTSIDE RECORDS SUMMARY | 2024-10-10 18:35 | XMS_ITS | Encounter Summary ---
Author Organization [facility] Address [facility] [place] [address] Care Team Providers Care Chemical Laboratory Chief Name Role Phone Stanislaw Murphy MD Primary Care Provider [phone] Maribel De La Rosa MD Unavailable Reason for Visit * Reason Onset Date Comments Advice 04/01/2024 Encounter Details Date Type Department Care Team (Late st Contact Info) Description 04/01/2024 Telephone [facility] [address] [place] [address] Yomaira Powell MD [address] [place] [address] Advice Social History Tobacco Use Types Packs/Day Years Used Date Smoking Tobacco: Every Day Cigarettes 1 42 Smokeless Tobacco: Never Alcohol Use Standard Drinks/Week Comments No 0 (1 standard drink = 0.6 oz pur e alcohol) PHQ-2 Answer Date Recorded PHQ-2 Score - If the patient scores above 3, please move on to questions 3-9 2 03/20/2021 Sex and Gender Information Value Date Recorded Sex Assigned at Male 08/25/2024 10:28 AM TRANSIT DEPARTMENT CLERK Legal Sex Male 11:19 PM CDT Gender Identity Not on file Sexual Orientation Not on file 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 Not on file Not on file No t on file documented as of this encounter Progress Notes * Soledad Rowe Dina, ELIDA - 04/06/2024 8:40 AM CDT Patient and returned the call and television script writer relayed the message. Patient states they are slowing done and attempting to quit smoking. He states that prednisone does not seem to be helping this time. * Soledad Arroyo LPN - 04/05/2024 10:30 AM CDT Attempted to reach patient and call would not go through. Attempted to reach spouse and left message for patient to call back. documented in this encounter Plan of Treatment Upcoming Encounters Date Type Department Care Team (Late st Contact Info) Description 11/28/2024 12:00 PM CDT Office Visit [facility] [place] [address] Maribel De La Rosa MD [address] [place], [place] [id number] documented as of this encounter Visit Diagnoses Not on filedocumented in this encounter Additional Health Concerns Infection Onset Date Last Indicated Resolved Time Respiratory Rule-Out 09/20/2024 09/20/2024 025 3:34 PM TRANSIT DEPARTMENT CLERK COVID-19 Rule Out 09/20/2024 09/20/2024 09/20/2024 3:48 PM TRANSIT DEPARTMENT CLERK Influenza - Seasonal Comment:[facility] notified of ICU influenza admission 09/20/2024 09/21/2024 10/01/2024 12:33 AM TRANSIT DEPARTMENT CLERK Assessment Noted Time PHQ-9 Depression Total Score: 2 03/20/20 21 11:14 AM CDT documented as of this encounter Care Teams Chemical Laboratory Chief Relationship Specialty Start Date End Date Stanislaw Murphy MD [address] [place] [address] PCP - General INTERNAL MEDICINE 09/04/23 Maribel De La Rosa MD [address] [place] [address] Consulting Physician CARDIOVASCULAR DISEASE 01/31/24 documented as of this encounter
[2024-10-11 15:36] LABS: Magnesium 0.5 mg/dL (1.8-2.4)
== END 2024-10-10 16:02 | disposition home or self-care (01) ==
PROVIDERS: PCP Internal Medicine; Visit Provider Internal Medicine
DX: J44.9 Chronic obstructive pulmonary disease, unspecified (principal); E87.6 Hypokalemia; E11.9 Type 2 diabetes mellitus without complications; J44.1 Chronic obstructive pulmonary disease with (acute) exacerbation
CPT/HCPCS: 36415; 36600; 80053; 82805; 83036; 83735; 83880; 85025; 86140

== ENCOUNTER 2024-10-21 09:01 | Outpatient (CLI) | payer MEDICARE, SELFPAY ==
--- OUTSIDE RECORDS SUMMARY | 2024-10-21 09:26 | XMS_ITS | Encounter Summary ---
Author Organization [facility] Address [facility] [place] [address] Care Team Providers Care Substitute Bus Driver Name Role Phone Kingsley Saul Motta MD Primary Care Provider [phone] Aeljandro Red MD Unavailable Unavailabl e María Saldaña APRN PROCESS DEVELOPER-C Unavailable Dang Salgado NP Primary Care Provider [phone] Isaac Nicholson MD Primary Care Provider [phone] Stanislaw Murphy MD Primary Care Provider + [phone] Maribel De La Rosa MD Unavailable Encounter Details Date Type Department Care Team (Late st Contact Info) Description 10/10/2017 Abstract SJS CONVERSION [address] [place] [address] , Generic Conversion, Social History Tobacco Use Types Packs/Day Years Used Date Smoking Tobacco: Former Comments:quit 1 week ago is on chantix Alcohol Use Standard Drinks/Week Comments No 0 (1 standard drink = 0.6 oz pur e alcohol) Sex and Gender Information Value Date Recorded Sex Assigned at Male 08/25/2024 10:28 AM CLEAN UP PERSON Legal Sex Male 11:19 PM CDT Gender Identity Not on file Sexual Orientation Not on file 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 Not on file Not on file No t on file documented as of this encounter Plan of Treatment Upcoming Encounters Date Type Department Care Team (Late st Contact Info) Description 11/28/2024 12:00 PM CDT Office Visit [facility] [place] [address] Maribel De La Rosa MD [address] [place] [address] documented as of this encounter Visit Diagnoses Not on filedocumented in this encounter Additional Health Concerns Infection Onset Date Last Indicated Resolved Time COVID-19 Rule Out 12/11/2020 12/11/2020 12/11/2020 7:42 PM CDT COVID-19 Rule Out 05/31/2021 05/31/2021 05/31/2021 5:58 PM CDT COVID-19 Rule Out 05/31/2021 05/31/2021 06/01/2021 8:07 PM CDT Respiratory Rule-Out 09/20/2024 09/20/2024 025 3:34 PM CLEAN UP PERSON COVID-19 Rule Out 09/20/2024 09/20/2024 09/20/2024 3:48 PM CLEAN UP PERSON Influenza - Seasonal Comment:[facility] notified of ICU influenza admission 09/20/2024 09/21/2024 10/01/2024 12:33 AM CLEAN UP PERSON documented as of this encounter Care Teams Substitute Bus Driver Relationship Specialty Start Date End Date Saul Wynn MD [address] [place] [address] PCP - General FAMILY PRACTICE 09/10/16 05/24/20 Dang Salgado NP [address] [place] [address] PCP - General Nurse Practitioner Family 05/25/20 12/10/20 Isaac Nicholson MD [address] [place] [address] PCP - General FAMILY PRACTICE 12/11/20 09/03/23 Stanislaw Murphy MD [address] [place] [address] PCP - General INTERNAL MEDICINE 09/04/23 Alejandro Red MD [address] [place] [address] [place] Shot Blaster CARDIOVASCULAR DISEASE 09/10/16 01/30/24 María Saldaña, [address] VENDOR, PROCESS DEVELOPER-C [address] [facility] [address] [place] [address] [place] Shot Blaster CARDIOVASCULAR DISEASE 11/09/17 01/30/24 Maribel De La Rosa MD [address] [place] [address] Consulting Physician CARDIOVASCULAR DISEASE 01/31/24 documented as of this encounter
--- OUTSIDE RECORDS SUMMARY | 2024-10-21 09:26 | XMS_ITS ---
Care Plan - [facility] Created on: October 21, 2024 JENNIFER ROCHA : 1960 Sex: Male Author Organization [facility] Address [address] [place] [address] Phone Care Team Providers Care Hawk Missile System Crewmember Name Role Phone Unavailable Unavailable Unavailable
--- OUTSIDE RECORDS SUMMARY | 2024-10-21 09:26 | XMS_ITS | Encounter Summary ---
Author Organization [facility] Address [address] [place] [address] Care Team Providers Care Mountain Bike Guide Name Role Phone Kingsley Saul Motta MD Primary Care Provider + [phone] Alejandro Red MD Unavailable [facility] María Perales APRN DIRECTOR OF VENDOR MANAGEMENT-C Unavailable Dang Salgado NP Primary Care Provider [phone] Isaac Nicholson MD Primary Care Provider [phone] Stanislaw Murphy MD Primary Care Provider + [phone] Maribel De La Rosa MD Unavailable Encounter Details Date Type Department Care Team (Late Contact Info) Description 01/01/2019 Abstract [facility]FL CONVERSION [address] [place] [address] , Generic Conversion, Social History Tobacco Use Types Packs/Day Years Used Date Smoking Tobacco: Some Days Cigarettes Smokeless Tobacco: Never Comments:quit 1 week ago is on chantix Alcohol Use Standard Drinks/Week Comments No 0 (1 standard drink = 0.6 oz pur e alcohol) Sex and Gender Information Value Date Recorded Sex Assigned at Male 08/25/2024 10:28 AM SPORTS LEADERSHIP INSTRUCTOR Legal Sex Male 11:19 PM CDT Gender Identity Not on file Sexual Orientation Not on file 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 Not on file Not on file No t on file documented as of this encounter Plan of Treatment Upcoming Encounters Date Type Department Care Team (Late Contact Info) Description 11/28/2024 12:00 PM CDT Office Visit [facility] [address] [place] [address] Maribel De La Rosa MD [address] [place] [address] documented as of this encounter Visit Diagnoses Not on filedocumented in this encounter Additional Health Concerns Infection Onset Date Last Indicated Resolved Time COVID-19 Rule Out 12/11/2020 12/11/2020 12/11/2020 7:42 PM CDT COVID-19 Rule Out 05/31/2021 05/31/2021 05/31/2021 5:58 PM CDT COVID-19 Rule Out 05/31/2021 05/31/2021 06/01/2021 8:07 PM CDT Respiratory Rule-Out 09/20/2024 09/20/2024 025 3:34 PM SPORTS LEADERSHIP INSTRUCTOR COVID-19 Rule Out 09/20/2024 09/20/2024 09/20/2024 3:48 PM SPORTS LEADERSHIP INSTRUCTOR Influenza - Seasonal Comment:[facility] notified of ICU influenza admission 09/20/2024 09/21/2024 10/01/2024 12:33 AM SPORTS LEADERSHIP INSTRUCTOR documented as of this encounter Care Teams Mountain Bike Guide Relationship Specialty Start Date End Date Saul Wynn MD [address] [place], [place] [id number] PCP - General FAMILY PRACTICE 09/10/16 05/24/20 Dang Salgado NP [address] [place] [address] PCP - General Nurse Practitioner Family 05/25/20 12/10/20 Isaac Nicholson MD [address] [place] [address] PCP - General FAMILY PRACTICE 12/11/20 09/03/23 Stanislaw Murphy MD [address] [place] [address] PCP - General INTERNAL MEDICINE 09/04/23 Alejandro Red MD [address] [place] [address] [place] Pile Driving Setter CARDIOVASCULAR DISEASE 09/10/16 01/30/24 María Saldaña, PAPER SORTER, DIRECTOR OF VENDOR MANAGEMENT-C [address] [facility] [address] [place] [address] [place] Pile Driving Setter CARDIOVASCULAR DISEASE 11/09/17 01/30/24 Maribel De La Rosa MD [address] [place] [address] Consulting Physician CARDIOVASCULAR DISEASE 01/31/24 documented as of this encounter
--- OUTSIDE RECORDS SUMMARY | 2024-10-21 09:26 | XMS_ITS | Encounter Summary ---
Author Organization [facility] Address [facility] access hospital[address] [place] [address] Care Team Providers Care Labeling Associate Name Role Phone Stanislaw Murphy MD Primary Care Provider [phone] Maribel De La Rosa MD Unavailable Encounter Details Date Type Department Care Team (Late st Contact Info) Description 09/27/2024 Hospital Follow-up Call [facility] Unit [address] [place] [address] Bri Moreno RN Social History Tobacco Use Types Packs/Day Years Used Date Smoking Tobacco: Every Day Cigarettes 1 42 Smokeless Tobacco: Never Alcohol Use Standard Drinks/Week Comments No 0 (1 standard drink = 0.6 oz pur e alcohol) [facility] Utilities Answer Date Recorded In the past 12 months has e [employer], gas, oil, or water [employer] threatened to shut off services in your [...] any time in the past 12 m [facility], were you homeless or living in a senior care (including now)? 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 Not on file Not on file [...] Description 11/28/2024 12:00 PM CDT Office Visit [facility] [address] [place] [address] Maribel De La Rosa MD [address] [place] [address] documented as of this encounter Visit Diagnoses Not on filedocumented in this encounter Additional Health Concerns Infection Onset Date Last Indicated Resolved Time Influenza - Seasonal Comment:[facility] notified of ICU influenza admission 09/20/2024 09/21/2024 10/01/2024 12:33 AM CANDY CATCHER Assessment Noted Time PHQ-9 Depression Total Score: 2 03/20/20 21 11:14 AM CDT documented as of this encounter Care Teams Labeling Associate Relationship Specialty Start Date End Date Stanislaw Murphy MD [address] [place] [address] PCP - General INTERNAL MEDICINE 09/04/23 Maribel De La Rosa MD [address] [place] [address] Consulting Physician CARDIOVASCULAR DISEASE 01/31/24 documented as of this encounter
--- OUTSIDE RECORDS SUMMARY | 2024-10-21 09:26 | XMS_ITS ---
Author Organization [facility] Address [address] [place] [address] Phone Care Team Providers Care Beam House Inspector Name Role Phone Unavailable Unavailable Unavailable Plan of Treatment No Plan of Treatment Recorded Assessments Includes: Assessments for all patient encounters No Assessments Recorded Medical Equipment - Implanted Devices Includes: Current and historical Devices No Medical Equipment Recorded Medications Administered Includes: Administered Medications in patient's chart No Administered Medications Recorded Results Includes: Results from 10/22/2023 through 10/21/2024 No Results Recorded For Specified Dates History [...]
--- OUTSIDE RECORDS SUMMARY | 2024-10-21 09:26 | XMS_ITS | Continuity of Care Document ---
Author Organization [facility] Address [address] [place] [address] [place] [address] Phone Care Team Providers Care Trouble Locater Name Role Phone Martinez OD, Stephane Unavailable Unavailable Procedures Procedure Date Eye Exam & Treatment Refraction Eye Exam & Treatment Refraction Advance Directives Directive Yes / No Effective Date File Name No Information Encounters Encounter Description Practice Location Reason(s) For Visit Diagnoses Date Provider Providers Copied on Encounter [facility], [address] [place] [address] [address], [place], [place], [id number], tel:[phone] [facility] No Information November- 7-201 0 Martinez OD Stephane. [address], [place], [place], [facility], [place]. tel:[phone] [facility], [address] [place] [address] [address], [place], [place], [id number], tel:[phone] [facility] No Information 0-200 9 Martinez OD Stephane. [address], [place], [address], [place]. tel:[phone] Family History Family Member Type Diagnosis Age At Onset No Information Payers Payer name Insurance type Covered alliance party ID Authorerickaa rohan(s) Medicaid [facility] [id number] Social History Type Description Quantity Date Captured [...]
--- OUTSIDE RECORDS SUMMARY | 2024-10-21 09:26 | XMS_ITS | Clinical Summary ---
Author Organization [facility] Address [address] [place] [address] Care Team Providers Care Cook Helper Meat Name Role Phone Stanislaw Murphy MD Primary Care Provider [phone] Maribel De La Rosa MD Unavailable Allergies No known active allergies Medications aspirin EC (ASPIRIN EC) 81 MG tablet Take 1 tablet (81 mg total) by mouth daily. 01/10/20 10 Active metoprolol succinate 100 MG 24 hr tablet Take 1 tablet (100 mg total) by mouth daily. 01/11/20 10 Active atorvastatin 20 MG tablet Take 1 tablet (20 mg total) by mouth daily. 12/31/19 21 Active omeprazole 40 MG capsule Take 1 capsule (40 mg total) by mouth 2 (two) times daily. 60 capsule 3 02/16/20 21 Active Nebulizer MiscIndications :Centrilobular emphysema ([facility]) Please provide patient with nebulizer machine to be used with nebulized medications.. Diagnosis COPD emphysema 1 each 07/02/20 21 Active cyclobenzaprine (FLEXERIL) 10 MG tablet Take 1 tablet (10 mg total) by mouth 3 (three) times daily. 10/24/19 23 Active ONETOUCH ULTRA test strip daily. 04/13/20 23 Active HYDROcodone-dipak taminophen (NORCO) 10-325 MG tablet Take 1 tablet by mouth every 6 (six) hours as needed for Pain. 04/02/20 23 Active albuterol (PROVENTIL) (2.5 MG/3ML) 0.083% nebulizer solutionIndicat ions:Pulmonary emphysema, unspecified emphysema type ([facility] HHS/HCC) Inhale 1 vial every 6 hours for wheezing 300 mL 2 04/24/20 23 Active montelukast (SINGULAIR) 10 MG tabletIndicatio ns:Moderate persistent asthma without complication (HHS/HCC) Take 1 tablet (10 mg total) by mouth nightly at bedtime. 90 tablet 3 01/31/20 24 Active SYMBICORT 160-4.5 MCG/ACT inhalerIndicati ons:Chronic obstructive pulmonary disease, unspecified COPD type ([facility] HHS/[facility]) INHALE 2 PUFFS INTO THE LUNGS TWICE A DAY 6 g 6 03/07/20 24 Active dilTIAZem CD (CARDIZEM CD) 180 MG 24 hr capsule Take 1 capsule (180 mg total) by mouth every morning. 90 capsule 2 03/23/20 24 Active Umeclidinium Cosby (INCRUSE ELLIPTA) 62.5 MCG/ACT AEROSOL POWDER, BREATH ACTIVATEDIndica tions:Pulmonary emphysema, unspecified emphysema type ([facility] HHS/[facility]) Inhale 1 puff into the lungs daily. 30 each 6 05/29/20 24 Active nitroglycerin (NITROSTAT) 0.[address] 1 tablet (0.4 mg total) under the tongue every 5 (five) minutes as needed for Chest Pain. 25 tablet 05/31/20 24 Active glimepiride (AMARYL) 2 MG tablet Take 1 tablet (2 mg total) by mouth every morning before breakfast. Active OXYGEN CONCENTRATOR SUPPLY, DME,Indications :Acute hypoxic respiratory failure ([facility] HHS/[facility]),Asthma -COPD overlap syndrome ([facility] HHS/[facility]),COPD (chronic obstructive pulmonary disease) ([facility]) 1 Device by Nasal route continuous. Nasal cannula, 2 at rest and 3 with activity. Portable oxygen tank, stationary oxygen concentrator. 1 Device 09/23/19 25 Active ipratropium-alb uterol (DUONEB) 0.5-2.5 (3) MG/3ML SolutionIndicat ions:COPD Take 3 mLs by nebulization every 6 (six) hours as needed (respiratory distress). Indications: COPD 360 mL 1 09/27/19 25 Active busPIRone (BUSPAR) 10 MG tabletIndicatio ns:Anxiety disorder Take 1 tablet (10 mg total) by mouth 2 (two) times daily. Indications: Anxiety disorder 60 tablet 09/27/19 25 Active WALKER MISC, DME,Indications :Unsteady Gait 1 Device by Does not apply route as needed. Indications: Unsteady Walk 4 wheel walker with seat 1 Device 09/27/19 25 2025 Active albuterol sulfate HFA 108 (90 Base) MCG/ACT inhalerIndicati ons:Centrilobul ar emphysema ([facility] HHS/[facility]) Inhale 2 puffs into the lungs every 4 (four) hours as needed. 8 g 10/12/19 25 Active albuterol sulfate HFA 108 (90 Base) MCG/ACT inhalerIndicati ons:Centrilobul ar emphysema ([facility] HHS/[facility]) inhale 2 puffs by mouth every 4 hours as needed 1 g 8 02/10/20 24 2024 Discontinued guaiFENesin ER (MUCINEX) 600 MG 12 hr tabletIndicatio ns:COPD Take 1 tablet (600 mg total) by mouth 2 (two) times daily for 10 days. Indications: COPD 20 tablet 09/27/19 25 2024 albuterol sulfate HFA 108 (90 Base) MCG/ACT inhalerIndicati ons:Centrilobul ar emphysema ([facility]) TAKE 2 PUFFS BY MOUTH EVERY 4 HOURS NEEDED 8 g 10/07/19 25 2024 Discontinued Active Problems Problem Noted Date Diagnosed Date Acute respiratory failure ([facility]) 08/28 Acute hypoxic respiratory failure ([facility]/H CC) 09/21/2024 Lung nodule 04/08/2023 Sleep related hypoxia 06/16/2022 Smoker 03/22/2021 Snoring 03/22/2021 Marijuana smoker 08/23/2019 Cigarette nicotine dependenc e with nicotine-induced disorder 08/23/2019 Low back pain 05/07/2017 Anxiety disorder 05/05/2017 Depression 05/05/2017 Hiatal hernia 05/05/2017 Hip pain, left 05/05/2017 Diabetes mellitus, type 2 ([facility]) 04/26 Asthma-COPD overlap syndrome ([facility]) 1 Hypercholesteremia 05/05/2017 Hypertension 05/05/2017 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 11/23/2016 Mixed hyperlipidemia 11/23/2016 PVD (peripheral vascular disease) HTN (hypertension) Restless leg syndrome Shortness of breath Chest pain Centrilobular emphysema ([facility]) Diabetes ([facility]) COPD (chronic obstructive pu lmonary disease) ([facility]) Claudication Resolved Problems Problem Noted Date Diagnosed Date Resolved Date Sleep apnea 05/05/2017 06/16/2022 Shortness of breath 11/23/2016 11/10/19 18 Vasovagal syncope 11/23/2016 11/09/2017 Encounter for preventive health examination 01/10/2016 04/06/2020 Broken ankle 02/11/2019 Encounters Date Type Department Care Team Description 10/18/2024 Telephone [facility] [address] [place] [phone] Yomaira Powell MD Appointment Request 10/11/2024 Orders Only [facility] [address] [place] [phone] Paige Banuelos MA 10/04/2024 10:00 AM CDT Home Care Visit [facility] [address] [place] [address] Rebecca Luke RN SN NON ADMIT SOC 09/28/2024 8:00 AM PHLEBOTOMIST SUPERVISOR/INSTRUCTOR Home Care Visit [facility] [address] [place] [address] Kathrine Caban RN SN NON ADMIT SOC 09/27/2024 Hospital Follow-up Call [facility] [address] [place] [address] Bri Moreno, GAURAV 09/26/2024 10:15 AM PHLEBOTOMIST SUPERVISOR/INSTRUCTOR Home Care Visit [facility] [address] [place] [address] K[facility] 09/26/2024 10:15 AM PHLEBOTOMIST SUPERVISOR/INSTRUCTOR Home Care Visit [facility] [address] [place] [address] Bri Ham LPN LIAISON TELEPHONE CALL 09/21/2024 6:36 AM PHLEBOTOMIST SUPERVISOR/INSTRUCTOR - 09/26/2024 1:53 PM PHLEBOTOMIST SUPERVISOR/INSTRUCTOR Hospital Encounter [facility] [address] [place] [address] Vilma Garcia MD Hindi, MD Briana Metzger Elijah V, MD Wali, MD Vera Garsia Anas, MD Bhandari, Amit, MD Discharge Disposition: Home or Self Care (Routine Discharge) 09/21/2024 Telephone [facility] [address] [place] [phone] Yomaira Powell MD Called To Cancel Office Appt. 09/20/2024 2:26 PM PHLEBOTOMIST SUPERVISOR/INSTRUCTOR - 09/21/2024 5:35 AM PHLEBOTOMIST SUPERVISOR/INSTRUCTOR Emergency [facility] [address] [facility] [place] [address] Genaro Cordoba MD Phemister, Dominic L, MD Shortness Of Breath Discharge Disposition: Transfer to Acute Care Hospital 09/20/2024 Travel 08/25/2024 10:30 AM PHLEBOTOMIST SUPERVISOR/INSTRUCTOR - 08/25/2024 11:59 PM PHLEBOTOMIST SUPERVISOR/INSTRUCTOR Hospital Encounter [place] [facility] [address] [place] [address] Noman Linton MD Discharge Disposition: Home or Self Care (Routine Discharge) 08/25/2024 Travel 08/09/2024 Orders Only [facility] [address] [place] [phone] Yomaira Powell MD 08/09/2024 Telephone [facility] [address] [phone] Yomaira Powell MD Insurance 08/08/2024 [facility] [address] [place] [phone] Yomaira Powell MD Refill Request from Last [...] drink = 0.6 oz pur e alcohol) [facility] Utilities Answer Date Recorded In the past 12 months has e [employer], gas, oil, or water [employer] threatened to shut off services in your [...] any time in the past 12 m [facility], were you homeless or living in a nursing home (including now)? 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 Not on file Not on file No t on file Last Filed Vital Signs Vital Sign Reading Time Taken Comments Blood Pressure 134/87 09/26/2024 7:52 AM PHLEBOTOMIST SUPERVISOR/INSTRUCTOR Pulse 119 09/26/2024 7:52 AM PHLEBOTOMIST SUPERVISOR/INSTRUCTOR Temperature 36.5 C (97.7 F) 09/26/2024 7:52 AM PHLEBOTOMIST SUPERVISOR/INSTRUCTOR Respiratory Rate 20 09/26/2024 4:37 AM PHLEBOTOMIST SUPERVISOR/INSTRUCTOR Oxygen Saturation 94% 09/26/2024 7:52 AM PHLEBOTOMIST SUPERVISOR/INSTRUCTOR Inhaled Oxygen Concentration - - Weight 65.3 kg (143 lb 15.4 oz) 09/26/2024 5:00 AM PHLEBOTOMIST SUPERVISOR/INSTRUCTOR Height 180 cm (5' 10.87 ) 09/21/2024 10 :25 AM PHLEBOTOMIST SUPERVISOR/INSTRUCTOR Body Mass Index 20.15 09/21/2024 10:25 AM PHLEBOTOMIST SUPERVISOR/INSTRUCTOR Plan of Treatment Upcoming Encounters Date Type Department Care Team (Late st Contact Info) Description 11/28/2024 12:00 PM CDT Office Visit [facility] [place] [phone] Maribel De La Rosa MD [address] [place] [address] Health Maintenance Due Date Last Done [...] 1-dose series) 2019 COVID-19 Vaccine (3 - 2023- season) 2024 12/04/2020, 11/06/2020 Influenza Adult (#1) 2024 04/20/2019 PHQ-2 (Physician Lime) 07/27/2024 Hemoglobin A1C 03/21/2025 09/21/2024, 04/27, 02/15/2022, [...] BRYAN DOCKED DEVICE Routine 09/26/2024 10:57 AM PHLEBOTOMIST SUPERVISOR/INSTRUCTOR POCT GLUCOSE - BRYAN DOCKED DEVICE Routine 09/26/2024 5:51 AM PHLEBOTOMIST SUPERVISOR/INSTRUCTOR XR CHEST PORTABLE STAT 09/26/2024 5:3 8 AM PHLEBOTOMIST SUPERVISOR/INSTRUCTOR BLOOD GAS, ARTERIAL LAB STAT 09/26/2024 5:10 AM PHLEBOTOMIST SUPERVISOR/INSTRUCTOR POCT GLUCOSE - BRYAN DOCKED DEVICE Routine 09/25/2024 8:42 PM PHLEBOTOMIST SUPERVISOR/INSTRUCTOR POCT GLUCOSE - BRYAN DOCKED DEVICE Routine 09/25/2024 3:37 PM PHLEBOTOMIST SUPERVISOR/INSTRUCTOR POCT GLUCOSE - BRYAN DOCKED DEVICE Routine 09/25/2024 10:47 AM PHLEBOTOMIST SUPERVISOR/INSTRUCTOR PHOSPHORUS, INORGANIC PHOSPHATE Routine 09/25/2024 5:18 AM PHLEBOTOMIST SUPERVISOR/INSTRUCTOR MAGNESIUM Routine 09/25/2024 5:18 AM PHLEBOTOMIST SUPERVISOR/INSTRUCTOR COMPREHENSIVE METABOLIC PANEL Routine 09/25/2024 5:18 AM PHLEBOTOMIST SUPERVISOR/INSTRUCTOR CBC W/DIFF AUTOMATED Routine 09/25/2024 5:18 AM PHLEBOTOMIST SUPERVISOR/INSTRUCTOR POCT GLUCOSE - BRYAN DOCKED DEVICE Routine 09/25/2024 4:59 AM PHLEBOTOMIST SUPERVISOR/INSTRUCTOR POCT GLUCOSE - BRYAN DOCKED DEVICE Routine 09/24/2024 8:44 PM PHLEBOTOMIST SUPERVISOR/INSTRUCTOR POCT GLUCOSE - BRYAN DOCKED DEVICE Routine 09/24/2024 4:53 PM PHLEBOTOMIST SUPERVISOR/INSTRUCTOR POCT GLUCOSE - BRYAN DOCKED DEVICE Routine 09/24/2024 11:04 AM PHLEBOTOMIST SUPERVISOR/INSTRUCTOR CBC W/DIFF AUTOMATED Routine 09/24/2024 5:21 AM PHLEBOTOMIST SUPERVISOR/INSTRUCTOR PHOSPHORUS, INORGANIC PHOSPHATE Routine 09/24/2024 5:21 AM PHLEBOTOMIST SUPERVISOR/INSTRUCTOR MAGNESIUM Routine 09/24/2024 5:21 AM PHLEBOTOMIST SUPERVISOR/INSTRUCTOR BASIC METABOLIC PANEL Routine 09/24/2024 5:21 AM PHLEBOTOMIST SUPERVISOR/INSTRUCTOR POCT GLUCOSE - BRYAN DOCKED DEVICE Routine 09/24/2024 5:12 AM PHLEBOTOMIST SUPERVISOR/INSTRUCTOR POCT GLUCOSE - BRYAN DOCKED DEVICE Routine 09/23/2024 8:59 PM PHLEBOTOMIST SUPERVISOR/INSTRUCTOR POCT GLUCOSE - BRYAN DOCKED DEVICE Routine 09/23/2024 4:35 PM PHLEBOTOMIST SUPERVISOR/INSTRUCTOR POCT GLUCOSE - BRYAN DOCKED DEVICE Routine 09/23/2024 10:36 AM PHLEBOTOMIST SUPERVISOR/INSTRUCTOR HOME O2 EVAL Routine 09/23/2024 9:57 AM PHLEBOTOMIST SUPERVISOR/INSTRUCTOR POCT GLUCOSE - BRYAN DOCKED DEVICE Routine 09/23/2024 8:29 AM PHLEBOTOMIST SUPERVISOR/INSTRUCTOR CBC W/DIFF AUTOMATED Routine 09/23/2024 2:56 AM PHLEBOTOMIST SUPERVISOR/INSTRUCTOR PHOSPHORUS, INORGANIC PHOSPHATE Routine 09/23/2024 2:56 AM PHLEBOTOMIST SUPERVISOR/INSTRUCTOR MAGNESIUM Routine 09/23/2024 2:56 AM PHLEBOTOMIST SUPERVISOR/INSTRUCTOR BASIC METABOLIC PANEL Routine 09/23/2024 2:56 AM PHLEBOTOMIST SUPERVISOR/INSTRUCTOR POCT GLUCOSE - BRYAN DOCKED DEVICE Routine 09/22/2024 4:54 PM PHLEBOTOMIST SUPERVISOR/INSTRUCTOR POCT GLUCOSE - BRYAN DOCKED DEVICE Routine 09/22/2024 12:30 PM PHLEBOTOMIST SUPERVISOR/INSTRUCTOR POCT GLUCOSE - BRYAN DOCKED DEVICE Routine 09/22/2024 6:52 AM PHLEBOTOMIST SUPERVISOR/INSTRUCTOR CBC W/DIFF AUTOMATED Routine 09/22/2024 5:30 AM PHLEBOTOMIST SUPERVISOR/INSTRUCTOR PHOSPHORUS, INORGANIC PHOSPHATE Routine 09/22/2024 5:30 AM PHLEBOTOMIST SUPERVISOR/INSTRUCTOR MAGNESIUM Routine 09/22/2024 5:30 AM PHLEBOTOMIST SUPERVISOR/INSTRUCTOR BASIC METABOLIC PANEL Routine 09/22/2024 5:30 AM PHLEBOTOMIST SUPERVISOR/INSTRUCTOR POCT GLUCOSE - BRYAN DOCKED DEVICE Routine 09/21/2024 8:05 PM PHLEBOTOMIST SUPERVISOR/INSTRUCTOR POCT GLUCOSE - BRYAN DOCKED DEVICE Routine 09/21/2024 5:56 PM PHLEBOTOMIST SUPERVISOR/INSTRUCTOR POCT GLUCOSE - BRYAN DOCKED DEVICE Routine 09/21/2024 4:02 PM PHLEBOTOMIST SUPERVISOR/INSTRUCTOR POCT ACUTE VENOUS PANEL Routine 09/21/2024 1:22 PM PHLEBOTOMIST SUPERVISOR/INSTRUCTOR POCT GLUCOSE - BRYAN DOCKED DEVICE Routine 09/21/2024 11:54 AM PHLEBOTOMIST SUPERVISOR/INSTRUCTOR USE ECHOCARDIOGRAM Routine 09/21/2024 9: 53 AM PHLEBOTOMIST SUPERVISOR/INSTRUCTOR ECG 12-LEAD Routine 09/21/2024 8:47 AM PHLEBOTOMIST SUPERVISOR/INSTRUCTOR POCT ACUTE VENOUS PANEL Routine 09/21/2024 7:53 AM PHLEBOTOMIST SUPERVISOR/INSTRUCTOR POCT GLUCOSE - BRYAN DOCKED DEVICE Routine 09/21/2024 7:49 AM PHLEBOTOMIST SUPERVISOR/INSTRUCTOR CULTURE, BACTERIA, BLOOD Routine 09/21/2024 7:40 AM PHLEBOTOMIST SUPERVISOR/INSTRUCTOR MRSA SCREENING Nurse Collected Priority 09/21/2024 7:40 AM PHLEBOTOMIST SUPERVISOR/INSTRUCTOR LACTIC ACID W REFLEX (SEPSIS) STAT 09/21/2024 7:40 AM PHLEBOTOMIST SUPERVISOR/INSTRUCTOR PROCALCITONIN (PCT) Routine 09/21/2024 7 :40 AM PHLEBOTOMIST SUPERVISOR/INSTRUCTOR AMMONIA Routine 09/21/2024 7:40 AM PHLEBOTOMIST SUPERVISOR/INSTRUCTOR CORTISOL, TOTAL Routine 09/21/2024 7:40 AM PHLEBOTOMIST SUPERVISOR/INSTRUCTOR RESPIRATORY PCR PANEL 2 Nurse Collected Priority 09/21/2024 7:29 AM PHLEBOTOMIST SUPERVISOR/INSTRUCTOR HEMOGLOBIN, GLYCOSYLATED Routine 09/21/2024 7:17 AM PHLEBOTOMIST SUPERVISOR/INSTRUCTOR PROTHROMBIN TIME, VENOUS Routine 09/21/2024 7:17 AM PHLEBOTOMIST SUPERVISOR/INSTRUCTOR CBC W/DIFF AUTOMATED Routine 09/21/2024 7:17 AM PHLEBOTOMIST SUPERVISOR/INSTRUCTOR LIPASE Routine 09/21/2024 7:17 AM PHLEBOTOMIST SUPERVISOR/INSTRUCTOR THYROID STIM HORMONE TSH Routine 09/21/2024 7:17 AM PHLEBOTOMIST SUPERVISOR/INSTRUCTOR PHOSPHORUS, INORGANIC PHOSPHATE Routine 09/21/2024 7:17 AM PHLEBOTOMIST SUPERVISOR/INSTRUCTOR LACTIC ACID Routine 09/21/2024 7:17 AM PHLEBOTOMIST SUPERVISOR/INSTRUCTOR MAGNESIUM Routine 09/21/2024 7:17 AM PHLEBOTOMIST SUPERVISOR/INSTRUCTOR TROPONIN, QUANT Routine 09/21/2024 7:17 AM PHLEBOTOMIST SUPERVISOR/INSTRUCTOR COMPREHENSIVE METABOLIC PANEL Routine 09/21/2024 7:17 AM PHLEBOTOMIST SUPERVISOR/INSTRUCTOR BLOOD GAS, VENOUS STAT 09/20/2024 8:5 7 PM PHLEBOTOMIST SUPERVISOR/INSTRUCTOR CRITICAL CARE Routine 09/20/2024 7:05 PM PHLEBOTOMIST SUPERVISOR/INSTRUCTOR BLOOD GAS, VENOUS STAT 09/20/2024 5:4 6 PM PHLEBOTOMIST SUPERVISOR/INSTRUCTOR CTA CHEST PE PROTOCOL STAT 09/20/2024 4:37 PM PHLEBOTOMIST SUPERVISOR/INSTRUCTOR BLOOD GAS, VENOUS STAT 09/20/2024 4:2 5 PM PHLEBOTOMIST SUPERVISOR/INSTRUCTOR ECG 12-LEAD Routine 09/20/2024 2:59 PM PHLEBOTOMIST SUPERVISOR/INSTRUCTOR BLOOD GAS, VENOUS STAT 09/20/2024 2:4 7 PM PHLEBOTOMIST SUPERVISOR/INSTRUCTOR D-DIMER, QUANTITATIVE STAT 09/20/2024 2:47 PM PHLEBOTOMIST SUPERVISOR/INSTRUCTOR LACTIC ACID W REFLEX (SEPSIS) STAT 09/20/2024 2:47 PM PHLEBOTOMIST SUPERVISOR/INSTRUCTOR TROPONIN, QUANT STAT 09/20/2024 2:47 PM PHLEBOTOMIST SUPERVISOR/INSTRUCTOR COMPREHENSIVE METABOLIC PANEL STAT 09/20/2024 2:47 PM PHLEBOTOMIST SUPERVISOR/INSTRUCTOR CBC W/DIFF AUTOMATED STAT 09/20/2024 2:47 PM PHLEBOTOMIST SUPERVISOR/INSTRUCTOR XR CHEST PORTABLE STAT 09/20/2024 2:4 5 PM PHLEBOTOMIST SUPERVISOR/INSTRUCTOR CORONAVIRUS (COVID-19) ANTIGEN STAT 09/20/2024 2:40 PM PHLEBOTOMIST SUPERVISOR/INSTRUCTOR INFLUENZA A & B STAT 09/20/2024 2:40 PM PHLEBOTOMIST SUPERVISOR/INSTRUCTOR CT CHEST WO CON Routine 08/25/2024 10:37 AM PHLEBOTOMIST SUPERVISOR/INSTRUCTOR Lung nodule COLONOSCOPY 02/15/2021 8:22 AM CDT LIPID PANEL (OUTSIDE LAB) Routine 11/05/2017 from Last 3 Months or Most Recently Relevant to Health Maintenance Results * (ABNORMAL) POCT glucose (09/26/2024 10:57 AM PHLEBOTOMIST SUPERVISOR/INSTRUCTOR) Only the most recent of22 resultswithin the time period is included. GLUCOSE POC 172(H) 70 - 109 09/26/2024 11:11 AM PHLEBOTOMIST SUPERVISOR/INSTRUCTOR [facility] 09/26/2024 10:5 7 AM PHLEBOTOMIST SUPERVISOR/INSTRUCTOR us Ben Medellin MD POCT ORDERABLES - DEVICE Final Result [facility] [address] [place] [id number], [id number] * XR CHEST PORTABLE (09/26/2024 5:38 AM PHLEBOTOMIST SUPERVISOR/INSTRUCTOR) Only the most recent of2 resultswithin the time period is included. Anatomical Region Laterality Modality Chest Radiographic Nisreen ging 09/26/2024 5:56 AM PHLEBOTOMIST SUPERVISOR/INSTRUCTOR Impressions 09/26/2024 5:59 AM PHLEBOTOMIST SUPERVISOR/INSTRUCTOR IMPRESSION:===== No acute findings. Resolution of bilateral lower lobe interstitial prominence.. Referred By: GEOVANNY Ramírezally Signed By: Devin Ferraro MD on 09/26/2024 5:59 AM Interpreted By: Devin Ferraro MD, 09/26/2024 5:56 AM Narrative 09/26/2024 5:59 AM PHLEBOTOMIST SUPERVISOR/INSTRUCTOR [address] [address] EXAMINATION: CHEST RADIOGRAPH SINGLE VIEW Exam date/time: 09/26/2024 5:36 AM Reason For Exam: SOB Comparison: 09/20/2024 Technique: Upright AP view of the chest Findings: Heart size normal. Proximal airways unremarkable. No suspicious pulmonary lesion, pneumothorax, or pleural effusion. Emphysematous change. Thoracic Intrathecal electrodes. Partially visualized cervical spine hardware. Calcified granulomas. ===== Procedure Note Devin Ferraro MD - 09/26/[address] [address] EXAMINATION: CHEST RADIOGRAPH SINGLE VIEW Exam date/time: [...] (ABNORMAL) ARTERIAL BLOOD GAS (09/26/2024 5:10 AM PHLEBOTOMIST SUPERVISOR/INSTRUCTOR) PH ARTERIAL 7.45 7.35 - 7.45 09/26/2024 5:22 AM PHLEBOTOMIST SUPERVISOR/INSTRUCTOR [facility] PCO2 46.5(H) 35.0 - 45.0 MMHG 09/26/2024 5:[address] [facility] PO2 67.8(L) 83.0 - 108.0 MMHG 09/26/2024 5:[address] [facility] BICARB ARTERIAL 31.8(H) 22 - 26 MMOL/L 09/26/2024 5:[address] [facility] TOTAL CO2 ARTERIAL 33.3(H) 23 - 27 MMOL/L 09/26/2024 5:[address] [facility] BE/BASE EXCESS 7.0(H) 0 - 2 MMOL/L 09/26/2024 5:[address] [facility] O2 Saturation 94(L) 95 - 98 % 09/26/2024 5:[address] [facility] BRANDEN TEST POSITIVE 09/26/2024 5:[address] [facility] OXYGEN STATUS 3 LT 09/26/2024 5:[address] [facility] DRAW SITE ARTERIAL LEFT BRACHIAL 09/26/2024 5:[address] [facility] 09/26/2024 5:10 AM [facility] Ben Medellin MD LABORATORY Final Result [facility] [address] [place] [address], [id number] * (ABNORMAL) COMPREHENSIVE METABOLIC PANEL (09/25/2024 5:18 AM PHLEBOTOMIST SUPERVISOR/INSTRUCTOR) Only the most recent of3 resultswithin the time period is included. SODIUM S/P/B 137 136 - 145 MMOL/L 09/25/2024 5:[address] [facility] POTASSIUM S/P/B 3.5 3.5 - 5.1 MMOL/L 09/25/2024 5:[address] [facility] CHLORIDE S/P/B 103 97 - 115 MMOL/L 09/25/2024 5:[address] [facility] CO2 30.8 21.0 - 32.0 MMOL/L 09/25/2024 5:[address] [facility] GLUCOSE 114(H) 74 - 106 MG/DL 09/25/2024 5:[address] [facility] BUN 19(H) 7 - 18 MG/DL 09/25/2024 5:[address] [facility] CREATININE S/P/B 0.51(L) 0.70 - 1.30 MG/DL 09/25/2024 5:[address] [facility] CALCIUM S/P/B 9.5 8.5 - 10.1 MG/DL 09/25/2024 5:[address] [facility] BILIRUBIN TOTAL S/P/B 0.3 0.2 - 1.0 MG/DL 09/25/2024 5:[address] [facility] ALKALINE PHOSPHATASE S/P/B 82 45 - 115 U/L 09/25/2024 5:[address] [facility] AST 7(L) 15 - 37 U/L 09/25/2024 5:[address] [facility] ALT 21 16 - 61 U/L 09/25/2024 5:[address] [facility] TOTAL PROTEIN S/P/B 6.7 6.4 - 8.2 G/DL 09/25/2024 5:[address] [facility] ALBUMIN S/P/B 3.0(L) 3.4 - 5.0 G/DL 09/25/2024 5:[address] [facility] ANION GAP 3.2 2.0 - 10.0 MMOL/L 09/25/2024 5:[address] [facility] OSMOLALITY (CALC) 287 MOSM/KG 5:[address] [facility] Comment:REFERENCE RANGE NOT ESTABLISHED GFR ESTIMATE >90 >90 ML/MIN/1. 73 M2 09/25/2024 5:55 AM PHLEBOTOMIST SUPERVISOR/INSTRUCTOR [facility] GFR NOTES GFR REFERENCE S: 09/25/2024 5:55 AM PHLEBOTOMIST SUPERVISOR/INSTRUCTOR [facility] Comment: THE ESTIMATED GFR IS CALCULATED [...] FAILURE: <15 ml/min/1.73 m2 09/25/2024 5:18 AM PHLEBOTOMIST SUPERVISOR/INSTRUCTOR us Nina Gamez MD LABORATORY Final Result [facility] [address] [place] [address], [id number] * (ABNORMAL) CBC W/DIFF AUTOMATED (09/25/2024 5:18 AM PHLEBOTOMIST SUPERVISOR/INSTRUCTOR) Only the most recent of6 resultswithin the time period is included. WBC 6.65 4.00 - 10.80 x10'3/uL 09/25/2024 5:38 AM PHLEBOTOMIST SUPERVISOR/INSTRUCTOR [facility] RBC 4.99 4.50 - 6.10 x10'6/uL 09/25/2024 5:[address] [facility] HGB 14.7 12.0 - 16.0 G/DL 09/25/2024 5:38 AM PHLEBOTOMIST SUPERVISOR/INSTRUCTOR [facility] HCT 43.4 37.0 - 52.0 % 09/25/2024 5:[address] [facility] MCV 87.0 78.0 - 100.0 FL 09/25/2024 5:[address] [facility] MCH 29.5 27.0 - 31.0 PG 09/25/2024 5:[address] [facility] MCHC 33.9 33.0 - 36.0 G/DL 09/25/2024 5:[address] [facility] RDW 13.9 11.5 - 14.5 % 09/25/2024 5:[address] [facility] PLT 216 150 - 350 x10'3/uL 09/25/2024 5:[address] [facility] MPV 9.3 7.4 - 10.4 FL 09/25/2024 5:[address] [facility] DIFFERENTIAL TYPE MANUAL DIFFERENTIAL 09/25/2024 6:[address] [facility] NRBC % 0.0 % 09/25/2024 6:[address] [facility] SEG NEUTROPHILS 59 % 6:[address] [facility] LYMPHOCYTES 30 % 09/25/2024 6:[address] [facility] MONOCYTES 10 % 09/25/2024 6:[address] [facility] EOSINOPHILS 0 % 09/25/2024 6:[address] [facility] BASOPHILS 0 % 09/25/2024 6:[address] [facility] METAMYELOCYTES 1 % 09/25/2024 6:[address] [facility] ABS. NEUTROPHILS 3.92 1.60 - 8.30 x10'3/uL 09/25/2024 6:[address] [facility] ABS. LYMPHOCYTES 2.00 0.80 - 4.70 x10'3/uL 09/25/2024 6:[address] [facility] ABS. MONOCYTES 0.67 0.00 - 1.50 x10'3/uL 09/25/2024 6:[address] [facility] ABS. EOSINOPHILS 0.00 0.00 - 0.40 x10'3/uL 09/25/2024 6:[address] [facility] ABS. BASOPHILS 0.00 0.00 - 0.20 x10'3/uL 09/25/2024 6:[address] [facility] ABS. METAMYELOCYTES 0.07(H) 0.00 x10'3/uL 09/25/2024 6:[address] [facility] ABS. NUCLEATED RBC'S 0.00 0.00 - 0.01 x10'3/uL 09/25/2024 6:[address] [facility] RBC MORPHOLOGY SLIDE REVIEWED 2024 6:[address] [facility] POIKLO SLIGHT 09/25/2024 6:[address] [facility] OVALOCYTES PRESENT 09/25/2024 6:[address] [facility] ACANTHOCYTES PRESENT 09/25/2024 6:[address] [facility] PLT EST. ADEQUATE 09/25/2024 6:[address] [facility] WBC MORPHOLOGY SEE NOTE 09/25/2024 6:[address] [facility] Comment:Reactive lymphocytes present. 09/25/2024 5:18 AM PHLEBOTOMIST SUPERVISOR/INSTRUCTOR us Nina Gamez MD LABORATORY Final Result Performing Organization Address [facility] Co de Phone Number [facility] [address] [place] [address], [id number] * PHOSPHORUS, INORGANIC PHOSPHATE (09/25/2024 5:18 AM PHLEBOTOMIST SUPERVISOR/INSTRUCTOR) Only the most recent of5 resultswithin the time period is included. PHOSPHORUS 2.8 2.5 - 4.9 MG/DL 09/25/2024 5:55 AM PHLEBOTOMIST SUPERVISOR/INSTRUCTOR [facility] 09/25/2024 5:18 AM PHLEBOTOMIST SUPERVISOR/INSTRUCTOR us Nina Gamez MD LABORATORY Final Result Performing Organization Address [facility]/ZIP Co de Phone Number [facility] [address] [place] [address], [id number] * MAGNESIUM (09/25/2024 5:18 AM PHLEBOTOMIST SUPERVISOR/INSTRUCTOR) Only the most recent of5 resultswithin the time period is included. MAGNESIUM 1.8 1.6 - 2.6 MG/DL 09/25/2024 5:[address] [facility] 09/25/2024 5:18 AM PHLEBOTOMIST SUPERVISOR/INSTRUCTOR Nina Gamez MD LABORATORY Final Result [facility] [address] [place] [address], [id number] * (ABNORMAL) BASIC METABOLIC PANEL (09/24/2024 5:21 AM PHLEBOTOMIST SUPERVISOR/INSTRUCTOR) Only the most recent of3 resultswithin the time period is included. SODIUM S/P/B 138 136 - 145 MMOL/L 09/24/2024 6:[address] [facility] POTASSIUM S/P/B 3.8 3.5 - 5.1 MMOL/L 09/24/2024 6:[address] [facility] CHLORIDE S/P/B 102 97 - 115 MMOL/L 09/24/2024 6:[address] [facility] CO2 32.8(H) 21.0 - 32.0 MMOL/L 09/24/2024 6:[address] [facility] GLUCOSE 127(H) 74 - 106 MG/DL 09/24/2024 6:[address] [facility] BUN 19(H) 7 - 18 MG/DL 09/24/2024 6:[address] [facility] CREATININE S/P/B 0.53(L) 0.70 - 1.30 MG/DL 09/24/2024 6:[address] [facility] CALCIUM S/P/B 9.5 8.5 - 10.1 MG/DL 09/24/2024 6:39 AM PHLEBOTOMIST SUPERVISOR/INSTRUCTOR [facility] ANION GAP 3.2 2.0 - 10.0 MMOL/L 09/24/2024 6:39 AM PHLEBOTOMIST SUPERVISOR/INSTRUCTOR [facility] OSMOLALITY (CALC) 290 MOSM/KG 025 6:39 AM PHLEBOTOMIST SUPERVISOR/INSTRUCTOR [facility] Comment:REFERENCE RANGE NOT ESTABLISHED GFR ESTIMATE >90 >90 ML/MIN/1. 73 M2 09/24/2024 6:39 AM PHLEBOTOMIST SUPERVISOR/INSTRUCTOR [facility] GFR NOTES GFR REFERENCE S: 09/24/2024 6:[address] [facility] Comment: THE ESTIMATED GFR IS CALCULATED [...] FAILURE: <15 ml/min/1.73 m2 09/24/2024 5:21 AM PHLEBOTOMIST SUPERVISOR/INSTRUCTOR Domenica Mcgovern MD LABORATORY Final Result [facility] [address] [place] [address], [phone] * (ABNORMAL) POCT ACUTE VENOUS PANEL (09/21/2024 1:22 PM PHLEBOTOMIST SUPERVISOR/INSTRUCTOR) Only the most recent of2 resultswithin the time period is included. SODIUM WHOLE BLOOD 144 138 - 146 mmol/L 09/21/2024 1:23 PM PHLEBOTOMIST SUPERVISOR/INSTRUCTOR [facility] POTASSIUM WHOLE BLOOD 2.9(L) 3.5 - 4.9 mmol/L 09/21/2024 1:23 PM PHLEBOTOMIST SUPERVISOR/INSTRUCTOR [facility] CA IONIZED WH BLOOD 1.01(L) 1.12 - 1.32 mmol/L 09/21/2024 1:23 PM PHLEBOTOMIST SUPERVISOR/INSTRUCTOR [facility] POC PH VENOUS 7.376 7.31 - 7.41 09/21/2024 1:23 PM PHLEBOTOMIST SUPERVISOR/INSTRUCTOR [facility] POC PCO2 VENOUS 37.4(L) 41.0 - 51.0 MMHG 09/21/2024 1:23 PM PHLEBOTOMIST SUPERVISOR/INSTRUCTOR [facility] POC PO2 VENOUS 40 25 - 40 MMHG 09/21/2024 1:23 PM PHLEBOTOMIST SUPERVISOR/INSTRUCTOR [facility] POC HCO3 VENOUS 21.9(L) 23 - 28 MMOL/L 09/21/2024 1:23 PM PHLEBOTOMIST SUPERVISOR/INSTRUCTOR [facility] POC TCO2 VENOUS 23(L) 24 - 29 MMOL/L 09/21/2024 1:23 PM PHLEBOTOMIST SUPERVISOR/INSTRUCTOR [facility] POC BASE DEFICIT VENOUS 3(H) 0 - 2 MMOL/L 09/21/2024 1:23 PM PHLEBOTOMIST SUPERVISOR/INSTRUCTOR [facility] POC HEMATOCRIT 32(L) 38 - 51 % 09/21/2024 1:23 PM PHLEBOTOMIST SUPERVISOR/INSTRUCTOR [facility] TIME TEST WAS PERFORMED: 1322 09/21/2024 1:23 PM PHLEBOTOMIST SUPERVISOR/INSTRUCTOR [facility] 09/21/2024 1:22 PM PHLEBOTOMIST SUPERVISOR/INSTRUCTOR us Domenica Mcgovern MD POCT ORDERABLES - DEVICE Final Result [facility] [address] [place] [address], [id number] * USE ECHOCARDIOGRAM (09/21/2024 9:53 AM PHLEBOTOMIST SUPERVISOR/INSTRUCTOR) Anatomical Region Laterality Modality Cardiac Echocardiogram 09/21/2024 7:26 AM PHLEBOTOMIST SUPERVISOR/INSTRUCTOR Narrative 09/21/2024 10:42 PM PHLEBOTOMIST SUPERVISOR/INSTRUCTOR Echocardiography Report Pat.Name: JENNIFER WATTERS Pat.ID: [id number] .Date: 09/21/2024 Refer.: [id number] MEKA Rowe EWDPROV EWDPROV Exam Time: 7:26:00 AM Study Type:ECHO WITH CARDIAC DOPPLER COMP Height: 71 in Weight: 155 lb BSA: 1.89 m2 Age: 2 1960,64Y Sex: M BP: 121/75 HR: 87 bpm Sonogrphr: Marie Sahu [facility] Pat. Stat.:Inpatient Room: [place] [address] CPT - 4: 13732 Reason for Study:Hypoxia Procedures: 2D, M-mode, Doppler, [...] Mass 2D Value 98.6 g LV Mass [id number] Value 52.2 g/m2 2D Left Ventricle LVIDd [...] 09/21/2024 Echocardiography Report Pat.Name: JENNIFER WATTERS Pat.ID: [id number] St.Date: 09/21/2024 Refer.: [id number] MEKA Rowe EWDPROV EWDPROV Exam Time: 7:26:00 AM Study Type:ECHO WITH CARDIAC DOPPLER COMP Height: 71 in Weight: 155 lb BSA: 1.89 m2 Age: 2 1960,64Y Sex: M BP: 121/75 HR: 87 bpm Sonogrphr: Marie Sahu [facility] Pat. Stat.:Inpatient Room: [place] [address] CPT - 4: 11706 Reason for Study:Hypoxia Procedures: 2D, M-mode, Doppler, [...] Mass 2D Value 98.6 g LV Mass [id number] Value 52.2 g/m2 2D Left Ventricle LVIDd [...] * ECG 12 lead (09/21/2024 8:47 AM PHLEBOTOMIST SUPERVISOR/INSTRUCTOR) Only the most recent of2 resultswithin the time period is included. 09/21/2024 8:47 AM PHLEBOTOMIST SUPERVISOR/INSTRUCTOR Narrative [facility] - 09/21/2024 7:55 PM PHLEBOTOMIST SUPERVISOR/INSTRUCTOR [place] [address] [place] [address] Test Date: 2024-09-21 Pat Name: JENNIFER WATTERS Department: 1 Room: [place] [address] Gender: Male Light Adjuster: Rakesh : 1960 Requested By: VILMA GARCIA Order Number: [id number] Reading MD: Darius Palacios Measurements Intervals [place] Rate: 88 P: 87 NH: 151 QRS: 54 QRSD: 90 T: 74 QT: 355 QTc: 430 Interpretive Statements SINUS RHYTHM POSSIBLE LEFT ATRIAL ENLARGEMENT [-0.1mV P-WAVE IN V1/V2] POSSIBLE RIGHT VENTRICULAR CONDUCTION DELAY [RSR (QR) IN V1/V2] BOTOMIST SUPERVISOR/INSTRUCTOR Procedure Note Darius Palacios MD - 09/21/2024 [place] [address] [place] [address] Test Date: 2024-09-21 Pat Name: JENNIFER WATTERS Department: 1 Room: [place] [address] Gender: Male Light Adjuster: Rakesh : 1960 Requested By: VILMA GARCIA Order Number: [id number] Reading MD: Darius Palacios Measurements Intervals [place] Rate: 88 P: 87 NH: 151 QRS: 54 QRSD: 90 T: 74 QT: 355 QTc: 430 Interpretive Statements SINUS RHYTHM POSSIBLE LEFT ATRIAL ENLARGEMENT [-0.1mV P-WAVE IN V1/V2] POSSIBLE RIGHT VENTRICULAR CONDUCTION DELAY [RSR (QR) IN V1/V2] BOTOMIST SUPERVISOR/INSTRUCTOR us Vilma Garcia MD ECG ORDERABLES Final Result [facility] * (ABNORMAL) LACTIC ACID W REFLEX (SEPSIS) (09/21/2024 7:40 AM PHLEBOTOMIST SUPERVISOR/INSTRUCTOR) Only the most recent of2 resultswithin the time period is included. LACTIC ACID VENOUS 2.1(H) 0.4 - 2.0 MMOL/L 09/21/2024 8:31 AM PHLEBOTOMIST SUPERVISOR/INSTRUCTOR [facility] 09/21/2024 7:40 AM PHLEBOTOMIST SUPERVISOR/INSTRUCTOR us Vilma Garcia MD LABORATORY Final Result Performing Organization Address [facility] Co de Phone Number [facility] [address] [place] [address], [id number] * PROCALCITONIN (PCT) (09/21/2024 7:40 AM PHLEBOTOMIST SUPERVISOR/INSTRUCTOR) Procalcitonin 0.07 0.00 - 0.49 NG/ML 09/21/2024 10:14 AM PHLEBOTOMIST SUPERVISOR/INSTRUCTOR [facility] 09/21/2024 7:40 AM PHLEBOTOMIST SUPERVISOR/INSTRUCTOR us Vilma Garcia MD LABORATORY Final Result Performing Organization Address [facility] Co de Phone Number [facility] [address] [place] [address], [place] [phone] * MRSA SCREENING (09/21/2024 7:40 AM PHLEBOTOMIST SUPERVISOR/INSTRUCTOR) SPECIMEN SOURCE RESPIRATORY, NOSE 09/21/2024 7:30 AM PHLEBOTOMIST SUPERVISOR/INSTRUCTOR [facility] MRSA BY PCR NASAL METHICILLIN RESISTANT STAPH AUREUS NOT DETECTED METHICILLIN RESISTANT STAPH AUREUS NOT DETECTED 09/22/2024 10:27 AM PHLEBOTOMIST SUPERVISOR/INSTRUCTOR [facility] NASAL STRUCTURE / Unknown 09/21/2024 7:40 AM PHLEBOTOMIST SUPERVISOR/INSTRUCTOR us Vilma Garcia MD MICROBIOLOGY - GENERAL ORDERABL ES Final Result Performing Organization Address City/[facility]/ZIP Co de Phone Number [facility] [address] [place] [address], [id number] * CORTISOL, TOTAL (09/21/2024 7:40 AM PHLEBOTOMIST SUPERVISOR/INSTRUCTOR) Pathologist [facility] CORTISOL 7.6 mcg/dL 09/21/2024 8:58 AM PHLEBOTOMIST SUPERVISOR/INSTRUCTOR [facility] Comment: A.M. SPECIMENS: 5.3 TO 22.5 mcg/dL P.M. SPECIMENS: 3.4 TO 16.8 mcg/dL ASSAY PERFORMED BY CHEMILUMINESCENCE METHODOLOGY USING [employer] M2[employer] XPT REAGENT. PATIENT RESULTS DETERMINED BY ASSAYS USING DIFFERENT MANUFACTURERS FOR METHODS MAY NOT BE COMPARABLE. 09/21/2024 7:40 AM PHLEBOTOMIST SUPERVISOR/INSTRUCTOR us Vilma Garcia MD LABORATORY Final Result Performing Organization Address [facility] de Phone Number [facility] [address] [place] [address], [id number] * CULTURE, BACTERIA, BLOOD (09/21/2024 7:40 AM PHLEBOTOMIST SUPERVISOR/INSTRUCTOR) Pathologist [facility] SPEC DESCRIPTION BLOOD 09/21/2024 6:40 AM PHLEBOTOMIST SUPERVISOR/INSTRUCTOR [facility] SPECIAL REQUESTS NO SPECIAL REQUEST 09/21/2024 6:40 AM PHLEBOTOMIST SUPERVISOR/INSTRUCTOR [facility] CULTURE RESULT NO GROWTH 5 DAYS 09/26/2024 4:38 PM PHLEBOTOMIST SUPERVISOR/INSTRUCTOR [facility] BLOOD SPECIMEN OBTAINED FOR BLOOD CULTURE / Unknown 09/21/2024 7:40 AM PHLEBOTOMIST SUPERVISOR/INSTRUCTOR 09/21/2024 8:02 AM PHLEBOTOMIST SUPERVISOR/INSTRUCTOR us Vilma Garcia MD MICROBIOLOGY - GENERAL ORDERABL ES Final Result Performing Organization Address [facility] Co de Phone Number [facility] [address] [place] [address], [place] [phone] * AMMONIA (09/21/2024 7:40 AM PHLEBOTOMIST SUPERVISOR/INSTRUCTOR) Pathologist [facility] AMMONIA 23 11 - 32 UMOL/L 09/21/2024 8:[address] [facility] 09/21/2024 7:40 AM PHLEBOTOMIST SUPERVISOR/INSTRUCTOR Vilma Garcia MD LABORATORY Final Result [facility] [address] [place] [address], [id number] * (ABNORMAL) BIOFIRE PCR UPPER RESPIRATORY PROFILE (RESPIRATORY PCR PANEL 2) (09/21/2024 7:29 AM PHLEBOTOMIST SUPERVISOR/INSTRUCTOR) Pathologist [facility] ADENOVIRUS PCR (RESP) NOT DETECTED NOT DETECTED 09/21/2024 9:[address] [facility] CORONAVIRUS 229E PCR (RESP) NOT DETECTED NOT DETECTED 09/21/2024 9:[address] [facility] CORONAVIRUS HKU1 PCR (RESP) NOT DETECTED NOT DETECTED 09/21/2024 9:[address] [facility] CORONAVIRUS NL63 PCR (RESP) NOT DETECTED NOT DETECTED 09/21/2024 9:[address] [facility] CORONAVIRUS OC43 PCR (RESP) NOT DETECTED NOT DETECTED 09/21/2024 9:[address] [facility] METAPNEUMOVIRUS PCR (RESP) NOT DETECTED NOT DETECTED 09/21/2024 9:[address] [facility] RHINOVIRUS/ENTEROV IRUS PCR (RESP) NOT DETECTED NOT DETECTED 09/21/2024 9:[address] [facility] INFLUENZA A PCR (RESP) DETECTED(AA ) NOT DETECTED 09/21/2024 9:[address] [facility] INFLUENZA A/H1-2009 PCR (RESP) DETECTED(AA ) NOT DETECTED 09/21/2024 9:[address] [facility] Comment: RESULTS PHONED TO AND READ BACK BY: WANDA ASIF [id number] 09/21/24 EKG INFLUENZA B PCR (RESP) NOT DETECTED NOT DETECTED 09/21/2024 9:08 AM PHLEBOTOMIST SUPERVISOR/INSTRUCTOR [facility] PARAINFLUENZA 1 PCR (RESP) NOT DETECTED NOT DETECTED 09/21/2024 9:08 AM PHLEBOTOMIST SUPERVISOR/INSTRUCTOR [facility] PARAINFLUENZA 2 PCR (RESP) NOT DETECTED NOT DETECTED 09/21/2024 9:[address] [facility] PARAINFLUENZA 3 PCR (RESP) NOT DETECTED NOT DETECTED 09/21/2024 9:08 AM PHLEBOTOMIST SUPERVISOR/INSTRUCTOR [facility] PARAINFLUENZA 4 PCR (RESP) NOT DETECTED NOT DETECTED 09/21/2024 9:[address] [facility] RSV PCR (RESP) NOT DETECTED NOT DETECTED 09/21/2024 9:[address] [facility] B PARAPERTUSIS PCR (RESP) NOT DETECTED NOT DETECTED 09/21/2024 9:[address] [facility] BORDETELLA PERTUSSIS PCR (RESP) NOT DETECTED NOT DETECTED 09/21/2024 9:[address] [facility] CHLAMYDOPHILA PNEUMONIAE PCR (RESP) NOT DETECTED NOT DETECTED 09/21/2024 9:[address] [facility] MYCOPLASMA PNEUMONIAE PCR (RESP) NOT DETECTED NOT DETECTED 09/21/2024 9:[address] [facility] CORONAVIRUS SARS COV 2 PCR (RESP) NOT DETECTED NOT DETECTED 09/21/2024 9:[address] [facility] NASOPHARYNGEAL SWAB / Unknown 09/21/2024 7:29 AM PHLEBOTOMIST SUPERVISOR/INSTRUCTOR us Vilma Garcia MD MICROBIOLOGY - GENERAL ORDERABL ES Final Result [facility] [address] [place] [address], [id number] * (ABNORMAL) HEMOGLOBIN, GLYCOSYLATED (09/21/2024 7:17 AM PHLEBOTOMIST SUPERVISOR/INSTRUCTOR) HGB A1C 6.6(H) <5.7 % 09/21/2024 8:15 AM PHLEBOTOMIST SUPERVISOR/INSTRUCTOR [facility] ESTIMATED AVG GLUCOSE 143(H) 74 - 114 MG/DL 09/21/2024 8:15 AM PHLEBOTOMIST SUPERVISOR/INSTRUCTOR [facility] 09/21/2024 7:17 AM PHLEBOTOMIST SUPERVISOR/INSTRUCTOR Vilma Garcia MD LABORATORY Final Result Performing Organization Address [facility] Co de Phone Number [facility] [address] [place] [address], [phone] * PROTHROMBIN TIME, VENOUS (09/21/2024 7:17 AM PHLEBOTOMIST SUPERVISOR/INSTRUCTOR) PROTIME 10.8 9.4 - 12.5 SEC 09/21/2024 7:54 AM PHLEBOTOMIST SUPERVISOR/INSTRUCTOR [facility] INR 0.9 0.8 - 1.1 09/21/2024 7:54 AM PHLEBOTOMIST SUPERVISOR/INSTRUCTOR [facility] 09/21/2024 7:17 AM PHLEBOTOMIST SUPERVISOR/INSTRUCTOR Vilma Garcia MD LABORATORY Final Result Performing Organization Address [email or web address]] de Phone Number [facility] [address] [place] [address], [phone] * (ABNORMAL) LACTIC ACID - SINGLE (09/21/2024 7:17 AM PHLEBOTOMIST SUPERVISOR/INSTRUCTOR) LACTIC ACID VENOUS 2.4(H) 0.4 - 2.0 MMOL/L 09/21/2024 8:03 AM PHLEBOTOMIST SUPERVISOR/INSTRUCTOR [facility] Comment: AN ORDER FOR A REPEAT LACTIC ACID TEST IS REQUIRED WITHIN 6 HOURS OF DIAGNOSIS ON A PATIENT WITH SEVERE SEPSIS. 09/21/2024 7:17 AM PHLEBOTOMIST SUPERVISOR/INSTRUCTOR Vilma Garcia MD LABORATORY Final Result Performing Organization Address [facility] Co de Phone Number [facility] [address] [place] [address], [place] [phone] * TROPONIN, QUANT (09/21/2024 7:17 AM PHLEBOTOMIST SUPERVISOR/INSTRUCTOR) Only the most recent of2 resultswithin the time period is included. TROPONIN I HIGH SENSITIVITY 7 0 - 78 ng/L 09/21/2024 8:09 AM PHLEBOTOMIST SUPERVISOR/INSTRUCTOR [facility] 09/21/2024 7:1 7 AM PHLEBOTOMIST SUPERVISOR/INSTRUCTOR us Vilma Garcia MD LABORATORY Final Result Performing Organization Address [facility] Co de Phone Number [facility] [address] [place] [address], [phone] * (ABNORMAL) THYROID STIM HORMONE, TSH (09/21/2024 7:17 AM PHLEBOTOMIST SUPERVISOR/INSTRUCTOR) Pathologist [facility] TSH 0.273(L) 0.358 - 3.740 uIU/ML 09/21/2024 8:09 AM PHLEBOTOMIST SUPERVISOR/INSTRUCTOR [facility] Comment: ASSAY PERFORMED BY CHEMILUMINESCENCE METHODOLOGY USING [employer]IST[employer] REAGENT. PATIENT RESULTS DETERMINED BY ASSAYS USING DIFFERENT MANUFACTURERS FOR METHODS MAY NOT BE COMPARABLE. 09/21/2024 7:17 AM PHLEBOTOMIST SUPERVISOR/INSTRUCTOR Vilma Garcia MD LABORATORY Final Result Performing Organization Address [facility] Co de Phone Number [facility] [address] [place] [address], [phone] * LIPASE (09/21/2024 7:17 AM PHLEBOTOMIST SUPERVISOR/INSTRUCTOR) Pathologist [facility] LIPASE 15 13 - 75 UNITS/L 09/21/2024 8:09 AM PHLEBOTOMIST SUPERVISOR/INSTRUCTOR [facility] 09/21/2024 7:17 AM PHLEBOTOMIST SUPERVISOR/INSTRUCTOR Vilma Garcia MD LABORATORY Final Result Performing Organization Address [facility]/ZIP Co de Phone Number [facility] [address] [place] [address], [phone] * (ABNORMAL) Blood gas, venous (09/20/2024 8:57 PM PHLEBOTOMIST SUPERVISOR/INSTRUCTOR) Only the most recent of4 resultswithin the time period is included. PH VENOUS 7.36 7.32 - 7.43 09/20/2024 9:04 PM [facility] PCO2 VENOUS 56.0 MMHG 09/20/2024 9:04 PM [facility] Comment:NO REFERENCE RANGE H BEEN ESTABLISHED PO2 VENOUS 61.0 MM HG 09/20/2024 9:04 PM PHLEBOTOMIST SUPERVISOR/INSTRUCTOR [facility] Comment:NO REFERENCE RANGE H BEEN ESTABLISHED TOTAL CO2 VENOUS 33.3(H) 22.0 - 26.0 MMOL/L 09/20/2024 9:04 PM [facility] BASE EXCESS VENOUS 4.6 MMOL/L 09/20/2024 9:04 PM [facility] Comment:NO REFERENCE RANGE H BEEN ESTABLISHED O2 SAT VENOUS 90 % 09/20/2024 9:04 PM PHLEBOTOMIST SUPERVISOR/INSTRUCTOR [facility] Comment:NO REFERENCE RANGE H BEEN ESTABLISHED BICARB VENOUS 31.6(H) 22.0 - 29.0 MMOL/L 09/20/2024 9:04 PM PHLEBOTOMIST SUPERVISOR/INSTRUCTOR [facility] O2 ADMIN VENOUS 35% 8:57 PM [facility] 09/20/2024 8:57 PM PHLEBOTOMIST SUPERVISOR/INSTRUCTOR us Geovanny Gallardo MD LABORATORY Final Res ult [facility] [address] [place] [address], * Critical Care (09/20/2024 7:05 PM PHLEBOTOMIST SUPERVISOR/INSTRUCTOR) Narrative Genaro Cordoba MD - 09/20/2024 7:05 PM PHLEBOTOMIST SUPERVISOR/INSTRUCTOR Genaro Cordoba MD 09/20/2024 7:39 PM Critical [...] CTA CHEST PE PROTOCOL (09/20/2024 4:37 PM PHLEBOTOMIST SUPERVISOR/INSTRUCTOR) Anatomical Region Laterality Modality Chest Computed Tomogra phy 09/20/2024 5:01 PM PHLEBOTOMIST SUPERVISOR/INSTRUCTOR Impressions 09/20/2024 5:04 PM PHLEBOTOMIST SUPERVISOR/INSTRUCTOR IMPRESSION: 1) No CT evidence for acute pulmonary embolism. 2. Mild changes of emphysema in both upper lobes. 3. Scattered ill-defined areas of groundglass and tree-in-bud opacity suspicious for acute viral pneumonitis. No airspace consolidation or pleural effusion. Ordered By: GENARO CORDOBA Interpreted By: Stanislav Gloria MD, 09/20/2024 5:01 PM Narrative 09/20/2024 5:04 PM PHLEBOTOMIST SUPERVISOR/INSTRUCTOR [address] [place] [address] Examination: CTA CHEST PE PROTOCOL Exam time: [...] Procedure Note Stanislav Gloria MD - 09/20/2024 [facility] [address] [place] [address] Examination: CTA CHEST PE PROTOCOL Exam time: [...] * (ABNORMAL) D-DIMER, QUANTITATIVE (09/20/2024 2:47 PM PHLEBOTOMIST SUPERVISOR/INSTRUCTOR) D-DIMER 819(H) 0 - 500 ng{FEU}/mL 09/20/2024 3:38 PM PHLEBOTOMIST SUPERVISOR/INSTRUCTOR [facility] Comment: D-Dimer values less than or [...] additional false negative findings. 09/20/2024 2:47 PM PHLEBOTOMIST SUPERVISOR/INSTRUCTOR us Genaro Cordoba MD LABORATORY Final Result Performing Organization Address [facility] Co de Phone Number [facility] [address] [place] [address], * CORONAVIRUS (COVID-19) ANTIGEN (09/20/2024 2:40 PM PHLEBOTOMIST SUPERVISOR/INSTRUCTOR) [facility] CORONAVIRUS ANTIGEN IA NEGATIVE NEGATIVE 09/20/2024 3:48 PM PHLEBOTOMIST SUPERVISOR/INSTRUCTOR [facility] Comment: NEGATIVE RESULTS DO NOT RULE [...] LABORATORIES. SPECIMEN TYPE NASAL 09/20/2024 2:52 PM PHLEBOTOMIST SUPERVISOR/INSTRUCTOR [facility] NASAL NASAL STRUCTURE / Unknown 09/20/2024 2:40 PM PHLEBOTOMIST SUPERVISOR/INSTRUCTOR us Genaro Cordoba MD MICROBIOLOGY - GENERAL ORDERABLE S Final Result Performing Organization Address [facility] Co de Phone Number [facility] [address] [place], [place] [address] [address], * (ABNORMAL) INFLUENZA A & B (09/20/2024 2:40 PM PHLEBOTOMIST SUPERVISOR/INSTRUCTOR) SPECIMEN TYPE (INFLUENZA) NASAL 09/20/2024 2:52 PM PHLEBOTOMIST SUPERVISOR/INSTRUCTOR [facility] INFLUENZA A POSITIVE(A) NEGATIVE 09/20/2024 3:34 PM PHLEBOTOMIST SUPERVISOR/INSTRUCTOR [facility] Comment: CALLED TO CECILY SARGENT 1534 09/20/24 [facility] READ BACK AND VERIFIED INFLUENZA B NEGATIVE NEGATIVE 09/20/2024 3:34 PM PHLEBOTOMIST SUPERVISOR/INSTRUCTOR [facility] NASAL STRUCTURE / Unknown 09/20/2024 2:40 PM PHLEBOTOMIST SUPERVISOR/INSTRUCTOR us Genaro Cordoba MD MICROBIOLOGY - GENERAL ORDERABLE S Final Result [facility] [address] [place] [address], * CT CHEST WO CON (08/25/2024 10:37 AM PHLEBOTOMIST SUPERVISOR/INSTRUCTOR) Anatomical Region Laterality Modality Chest Computed Tomogra phy 08/30/2024 12:0 1 PM PHLEBOTOMIST SUPERVISOR/INSTRUCTOR Impressions 08/30/2024 12:10 PM PHLEBOTOMIST SUPERVISOR/INSTRUCTOR IMPRESSION: 1. Favored benign pulmonary findings as described. Given the smoking history, low-dose screening chest CT in one year is suggested. 2. Coronary artery disease. 3. Centrilobular emphysema. Ordered By: NOMAN LINTON Interpreted By: Gustabo Mabry MD, 08/30/2024 12:01 PM Narrative 08/30/2024 12:10 PM PHLEBOTOMIST SUPERVISOR/INSTRUCTOR [facility] [address] [facility] [place] [address] Examination: CT of the chest without contrast. [...] although the findings overall remain objectively nonspecific. Regulatory Affairs Coordinator findings are annotated on the lung window [...] Procedure Note Gustabo Mabry MD - 08/30/2024 [place] [id number] [facility] [place] [address] Examination: CT of the chest without contrast. [...] favored although the findings overall remain objectivelynonspecific. Regulatory Affairs Coordinator findings are annotated on the lung windowseries [...] By: Gustabo Mabry MD, 08/30/2024 12:01 PM us Noman Linton MD CT Final Res ult * COLONOSCOPY (02/15/2021 8:22 AM CDT) us Biju Duncan MD GI PROCEDURE ORDERABLES Final Result * LIPID PANEL (OUTSIDE LAB) (11/05/2017) CHOLESTEROL 113 TRIGLYCERIDES 93 HDL 43 LDL (CALCULATED) 51 CHOL/HDL RATIO 2.6 11/05/2017 us Doc [facility] Abstract LAB-OUTSIDE/ABSTRACTED Final Result from Last 3 Months or Most Recently Relevant to Health Maintenance Insurance AETNA Advance Directives * Full Code (Latest Code Status on File) Date Activated Date Inactivated Comments 09/21/2024 6:39 AM 09/26/2024 3:59 PM Care Teams Cook Helper Meat Relationship Specialty Start Date End Date Stanislaw Murphy MD [address] [place] [address] PCP - General INTERNAL MEDICINE 09/04/23 Maribel De La Rosa MD [address] [place] [address] Consulting Physician CARDIOVASCULAR DISEASE 01/31/24
--- OUTSIDE RECORDS SUMMARY | 2024-10-21 09:26 | XMS_ITS | Encounter Summary ---
Author Organization [facility] Address [address] [place] [address] Care Team Providers Care Technical Rep Name Role Phone Kingsley Saul Motta MD Primary Care Provider [phone] Alejandro Red MD Unavailable [facility] María Saldaña APRN CANDY FORMING MACHINE OPERATOR-C Unavailable Dang Salgado NP Primary Care Provider [phone] Isaac Nicholson MD Primary Care Provider [phone] Stanislaw Murphy MD Primary Care Provider [phone] Maribel De La Rosa MD Unavailable Encounter Details Date Type Department Care Team (Late st Contact Info) Description 08/24/2014 Abstract [facility] [address] [address] Alejandro Red MD Social History Tobacco Use Types Packs/Day Years Used Date Smoking Tobacco: Smoker, Current Status Unknown Alcohol Use Standard Drinks/Week Comments No 0 (1 standard drink = 0.6 oz pur e alcohol) Sex and Gender Information Value Date Recorded Sex Assigned at Male 08/25/2024 10:28 AM HARVEST SUPERVISOR Legal Sex Male 11:19 PM CDT Gender Identity Not on file Sexual Orientation Not on file 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 Not on file Not on file No t on file documented as of this encounter Plan of Treatment Upcoming Encounters Date Type Department Care Team (Late st Contact Info) Description 11/28/2024 12:00 PM CDT Office Visit [facility] [place] [address] Maribel De La Rosa MD [address] [place] [address] documented as of this encounter Visit Diagnoses Not on filedocumented in this encounter Additional Health Concerns Infection Onset Date Last Indicated Resolved Time COVID-19 Rule Out 12/11/2020 12/11/2020 12/11/2020 7:42 PM CDT COVID-19 Rule Out 05/31/2021 05/31/2021 05/31/2021 5:58 PM CDT COVID-19 Rule Out 05/31/2021 05/31/2021 06/01/2021 8:07 PM CDT Respiratory Rule-Out 09/20/2024 09/20/2024 025 3:34 PM HARVEST SUPERVISOR COVID-19 Rule Out 09/20/2024 09/20/2024 09/20/2024 3:48 PM HARVEST SUPERVISOR Influenza - Seasonal Comment:[facility] notified of ICU influenza admission 09/20/2024 09/21/2024 10/01/2024 12:33 AM HARVEST SUPERVISOR documented as of this encounter Care Teams Technical Rep Relationship Specialty Start Date End Date Saul Wynn MD [address] [place], [place] [phone] PCP - General FAMILY PRACTICE 09/10/16 05/24/20 Dang Salgado NP [address] [place] [address] PCP - General Nurse Practitioner Family 05/25/20 12/10/20 Isaac Nicholson MD [address] [place] [address] PCP - General FAMILY PRACTICE 12/11/20 09/03/23 Stanislaw Murphy MD [address] [place] [address] PCP - General INTERNAL MEDICINE 09/04/23 Alejandro Red MD [address] [place] [address] Alma Application Security Architect CARDIOVASCULAR DISEASE 09/10/16 01/30/24 María Saldaña, FACILITIES OPERATOR, CANDY FORMING MACHINE OPERATOR-C [address] [facility] [address] [place] [address] Alma Application Security Architect CARDIOVASCULAR DISEASE 11/09/17 01/30/24 Maribel De La Rosa MD [address] [place] [address] Consulting Physician CARDIOVASCULAR DISEASE 01/31/24 documented as of this encounter
--- OUTSIDE RECORDS SUMMARY | 2024-10-21 09:26 | XMS_ITS | Encounter Summary ---
Author Organization [facility] Address [facility]ly [facility] [place] [address] Care Team Providers Care Electric Well Logging Operator Name Role Phone Stanislaw Murphy MD Primary Care Provider [phone] Maribel De La Rosa MD Unavailable Reason for Visit * Reason Onset Date Comments Advice 04/01/2024 Encounter Details Date Type Department Care Team (Late st Contact Info) Description 04/01/2024 Telephone [facility]pec[facility] [address] [place] [address] Yomaira Powell MD [address] [place] [address] Advice Social History Tobacco Use [...] Sex Assigned at Male 08/25/2024 10:28 AM FOREST FIRE WARDEN Legal Sex Male 11:19 PM CDT Gender Identity Not on file Sexual Orientation Not on file 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 Patient states they are [...] Description 11/28/2024 12:00 PM CDT Office Visit [facility] [place] [address] Maribel De La Rosa MD [address] [place], [place] [phone] documented as of this encounter Visit Diagnoses Not on filedocumented in this encounter Additional Health Concerns Infection Onset Date Last Indicated Resolved Time Respiratory Rule-Out 09/20/2024 09/20/2024 025 3:34 PM FOREST FIRE WARDEN COVID-19 Rule Out 09/20/2024 09/20/2024 09/20/2024 3:48 PM FOREST FIRE WARDEN Influenza - Seasonal Comment:[facility] notified of ICU influenza admission 09/20/2024 09/21/2024 10/01/2024 12:33 AM FOREST FIRE WARDEN Assessment Noted Time PHQ-9 Depression Total Score: 2 03/20/20 21 11:14 AM CDT documented as of this encounter Care Teams Electric Well Logging Operator Relationship Specialty Start Date End Date Stanislaw Murphy MD [address] [place] [address] PCP - General INTERNAL MEDICINE 09/04/23 Maribel De La Rosa MD [address] [place] [address] Consulting Physician CARDIOVASCULAR DISEASE 01/31/24 documented as of this encounter
--- OUTSIDE RECORDS SUMMARY | 2024-10-21 09:26 | XMS_ITS | Clinical Summary ---
Author Organization [facility] Address [address] [place] [address] Phone Care Team Providers Care Show Card Letterer Name Role Phone Unavailable Unavailable Unavailable Reason [...]
--- OUTSIDE RECORDS SUMMARY | 2024-10-21 09:27 | XMS_ITS | Encounter Summary ---
Author Organization [facility] Address [facility] [place] [address] Care Team Providers Care Brick And Block Mason Name Role Phone Stanislaw Murphy MD Primary Care Provider [phone] Maribel De La Rosa MD Unavailable Reason for Visit * Reason Onset Date Comments Called To Cancel Office Appt. 09/21/2024 Encounter Details Date Type Department Care Team (Late st Contact Info) Description 09/21/2024 Telephone [facility] [address] [place] [address] Yomaira Powell MD [address] [place] [address] Called To Cancel Office Appt. Social History Tobacco Use Types Packs/Day Years Used Date Smoking Tobacco: Every Day Cigarettes 1 42 Smokeless Tobacco: Never Alcohol Use Standard Drinks/Week Comments No 0 (1 standard drink = 0.6 oz pur e alcohol) [facility] Utilities Answer Date Recorded In the past 12 months has [employer], gas, oil, or water [employer] threatened to shut off services in your [...] time in the past 12 m [facility], were you homeless or living in a m[facility] (including now)? 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 Not on file Not on [...] Alejandro in ICU at 09/22 appt canceled HARGE DOOR OPERATOR documented in this encounter Plan of Treatment Upcoming Encounters Date Type Department Care Team (Late Contact Info) Description 11/28/2024 12:00 PM CDT Office Visit [facility] [place] [address] Maribel De La Rosa MD [address] [place] [address] documented as of this encounter Visit Diagnoses Not on filedocumented in this encounter Additional Health Concerns Infection Onset Date Last Indicated Resolved Time Influenza - Seasonal Comment:[facility] notified of ICU influenza admission 09/20/2024 09/21/2024 10/01/2024 12:33 AM DISCHARGE DOOR OPERATOR Assessment Noted Time PHQ-9 Depression Total Score: 2 03/20/20 21 11:14 AM CDT documented as of this encounter Care Teams Brick And Block Mason Relationship Specialty Start Date End Date Stanislaw Murphy MD [address] [place] [address] PCP - General INTERNAL MEDICINE 09/04/23 Maribel De La Rosa MD [address] [place] [address] Consulting Physician CARDIOVASCULAR DISEASE 01/31/24 documented as of this encounter
[2024-10-21 14:51] LABS: Alanine Aminotransferase 25 U/L (16-63); Alkaline Phosphatase 138 U/L (46-116); Anion Gap 7 mmol/L (4-12); Aspartate Amino Transferase 11 U/L (15-37); Bilirubin,Total 0.2 mg/dL (0.00-1.00); Blood Urea Nitrogen 12 mg/dL (7-18); CRP 0.6 mg/dL (0.0-0.9); Calcium 8.8 mg/dL (8.5-10.1); Carbon Dioxide 31 mmol/L (21-32); Chloride 101 mmol/L (98-108); Estimated Glomerular Filt Rate > 60; Glucose 202 mg/dL (70-99); Magnesium 1.2 mg/dL (1.8-2.4); NT Pro B Type Natriuretic Pept 250 pg/mL (0-125); Osmolality Calculated 293 mOsm/kg (285-295); Potassium 3.9 mmol/L (3.5-5.1); Sodium 139 mmol/L (136-145); Uric Acid 2.6 mg/dL (3.5-7.2)
[2024-10-24 15:53] LABS: Cyclic Citrullinated Peptide <16 UNITS
== END 2024-10-21 09:02 | disposition home or self-care (01) ==
PROVIDERS: PCP Internal Medicine; Visit Provider Internal Medicine
DX: J44.9 Chronic obstructive pulmonary disease, unspecified (principal); M25.50 Pain in unspecified joint; E87.6 Hypokalemia; I50.9 Heart failure, unspecified
CPT/HCPCS: 36415; 80053; 83735; 83880; 84550; 86038; 86140; 86200

== ENCOUNTER 2024-11-02 12:12 | Outpatient (CLI) | payer MEDICARE, SELFPAY ==
[2024-11-02 12:31] LABS: Base Excess ABG 2.5 mmol/L (0-2); Basophils Percent Auto 1.2 % (0.0-1.0); Eosinophils Absolute Auto 0.21 K/mm3 (0.02-0.50); Eosinophils Percent Auto 2.6 % (1.0-6.0); Hematocrit 38.5 % (37.0-46.0); Hemoglobin 12.6 g/dL (12.4-15.3); Immature Granulocyte Absolute 0.08 K/mm3 (0.00-0.00); Lymphocytes Absolute Auto 1.91 K/mm3 (1.10-4.50); Lymphocytes Percent Auto 23.8 % (18.0-42.0); Mean Corpuscular HGB Conc 32.7 g/dL (32-36); Mean Corpuscular Volume 88.5 fL (78.0-102.0); Mean Platelet Volume 8.7 fl (8.7-11.0); Monocytes Absolute Auto 0.74 K/mm3 (0.10-0.90); Monocytes Percent Auto 9.2 % (2.0-11.0); Neutrophils Absolute Auto 4.97 K/mm3 (1.70-7.20); Neutrophils Percent Auto 62.2 % (50.0-70.0); Oxygen Saturation ABG 96.3 % (95-97); Oxyhemoglobin 95.2 % (94-100); PCO2 ABG 41.1 mmHg (35-45); PO2 ABG 81.9 mmHg (80-90); Platelet Count Result 358 K/mm3 (150-420); Red Blood Count 4.35 M/mm3 (4.70-6.10); Red Cell Distribution Width 14.7 % (11.6-14.4); pH ABG 7.44 (7.35-7.45)
[2024-11-02 12:40] LABS: Device ROOM AIR; Modified Allen's Test Pass; Site Drawn RIGHT RADIAL
[2024-11-02 13:10] LABS: Alanine Aminotransferase 10 U/L (16-63); Albumin Level 3.4 g/dL (3.4-5.0); Alkaline Phosphatase 145 U/L (46-116); Anion Gap 7 mmol/L (4-12); Aspartate Amino Transferase < 10 U/L (15-37); Bilirubin,Total 0.2 mg/dL (0.00-1.00); Blood Urea Nitrogen 22 mg/dL (7-18); Calcium 9.3 mg/dL (8.5-10.1); Carbon Dioxide 30 mmol/L (21-32); Chloride 105 mmol/L (98-108); Estimated Glomerular Filt Rate > 60; Glucose 136 mg/dL (70-99); Osmolality Calculated 299 mOsm/kg (285-295); Potassium 4.7 mmol/L (3.5-5.1); Sodium 142 mmol/L (136-145); Total Protein 7.5 g/dL (6.4-8.2)
--- OUTSIDE RECORDS SUMMARY | 2024-11-02 13:34 | XMS_ITS | Encounter Summary ---
Author Organization [facility] Address [facility] [place] [address] Care Team Providers Care Agricultural Commodities Inspector Name Role Phone Kingsley Saul Motta MD Primary Care Provider + [phone] Alejandro Red MD Unavailable [phone] María Saldaña APRN PROMPT CARE RN-C Unavailable [phone] Dang Salgado NP Primary Care Provider [phone] Isaac Nicholson MD Primary Care Provider [phone] Stanislaw Murphy MD Primary Care Provider [phone] Maribel De La Rosa MD Unavailable Encounter Details Date Type Department Care Team (Late st Contact Info) Description 08/24/2014 Abstract [facility] AT [address] [address] Alejandro Red MD [address] [place] [address] Social History Tobacco Use Types Packs/Day Years Used Date Smoking Tobacco: Smoker, Current Status Unknown Alcohol Use Standard Drinks/Week Comments No 0 (1 standard drink = 0.6 oz pur e alcohol) Sex and Gender Information Value Date Recorded Sex Assigned at Male 08/25/2024 10:28 AM MODEL DRESSER Legal Sex Male 11:19 PM CDT Gender Identity Not on file Sexual Orientation Not on file 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 file No t on file documented as of this encounter Plan of Treatment Upcoming Encounters Date Type Department Care Team (Late st Contact Info) Description 11/10/2024 2:40 PM CDT Office Visit [facility] [place] [address] [place] [address] Yomaira Powell MD [address] [place] [address] 11/28/2024 12:00 PM CDT Office Visit [facility] [address] [place] [address] Maribel De La Rosa MD [address] [place], [place] [address] documented as of this encounter Visit Diagnoses Not on filedocumented in this encounter Additional Health Concerns Infection Onset Date Last Indicated Resolved Time COVID-19 Rule Out 12/11/2020 12/11/2020 12/11/2020 7:42 PM CDT COVID-19 Rule Out 05/31/2021 05/31/2021 05/31/2021 5:58 PM CDT COVID-19 Rule Out 05/31/2021 05/31/2021 06/01/2021 8:07 PM CDT Respiratory Rule-Out 09/20/2024 09/20/2024 025 3:34 PM MODEL DRESSER COVID-19 Rule Out 09/20/2024 09/20/2024 09/20/2024 3:48 PM MODEL DRESSER Influenza - Seasonal Comment:[facility] notified of ICU influenza admission 09/20/2024 09/21/2024 10/01/2024 12:33 AM MODEL DRESSER documented as of this encounter Care Teams Agricultural Commodities Inspector Relationship Specialty Start Date End Date Saul Wynn MD [address] [place] [address] PCP - General FAMILY PRACTICE 09/10/16 05/24/20 Dang Salgado NP [address] [place] [address] PCP - General Nurse Practitioner Family 05/25/20 12/10/20 Isaac Nicholson MD [address] [facility] [place] [address] PCP - General FAMILY PRACTICE 12/11/20 09/03/23 Stanislaw Murphy MD [address] [place] [address] PCP - General INTERNAL MEDICINE 09/04/23 Alejandro Red MD [address] [place] [address] Shelton Drum Attendant CARDIOVASCULAR DISEASE 09/10/16 01/30/24 María Saldaña, CIGARETTE CATCHER, PROMPT CARE RN-C [address] [facility] [address] [place] [address] Shelton Drum Attendant CARDIOVASCULAR DISEASE 11/09/17 01/30/24 Maribel De La Rosa MD [address] [place] [address] Consulting Physician CARDIOVASCULAR DISEASE 01/31/24 documented as of this encounter
--- OUTSIDE RECORDS SUMMARY | 2024-11-02 13:34 | XMS_ITS | Clinical Summary ---
Author Organization [facility] Address [address] [place] [address] Phone Care Team Providers Care Flue Gas Analyst Name Role Phone Unavailable Unavailable Unavailable Reason [...]
--- OUTSIDE RECORDS SUMMARY | 2024-11-02 13:34 | XMS_ITS | Encounter Summary ---
Author Organization [facility] Address [address] [place] [address] Care Team Providers Care Safety Instruction Police Officer Name Role Phone Kingsley Saul Motta MD Primary Care Provider + [phone] Alejandro Red MD Unavailable [phone] María Saldaña APRN DIGITAL IMAGING SPECIALIST-C Unavailable [phone] Dang Salgado NP Primary Care Provider [phone] Isaac Nicholson MD Primary Care Provider [phone] Stanislaw Murphy MD Primary Care Provider [phone] Mairbel De La Rosa MD Unavailable Encounter Details Date Type Department Care Team (Late Contact Info) Description 01/01/2019 Abstract [facility] [address] [place] [address] , Generic Conversion, Social History Tobacco Use Types Packs/Day Years Used Date Smoking Tobacco: Some Days Cigarettes Smokeless Tobacco: Never Comments:quit 1 week ago is on chantix Alcohol Use Standard Drinks/Week Comments No 0 (1 standard drink = 0.6 oz pur e alcohol) Sex and Gender Information Value Date Recorded Sex Assigned at Male 08/25/2024 10:28 AM PLANT MANAGER Legal Sex Male 11:19 PM CDT Gender Identity Not on file Sexual Orientation Not on file 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 Not on file No t on file documented as of this encounter Plan of Treatment Upcoming Encounters Date Type Department Care Team (Late Contact Info) Description 11/10/2024 2:40 PM CDT Office Visit [facility] [address] [place] [address] Yomaira Powell MD [address] [place] [address] 11/28/2024 12:00 PM CDT Office Visit [facility] [address] [place] [address] Maribel De La Rosa MD [address] [place] [address] documented as of this encounter Visit Diagnoses Not on filedocumented in this encounter Additional Health Concerns Infection Onset Date Last Indicated Resolved Time COVID-19 Rule Out 12/11/2020 12/11/2020 12/11/2020 7:42 PM CDT COVID-19 Rule Out 05/31/2021 05/31/2021 05/31/2021 5:58 PM CDT COVID-19 Rule Out 05/31/2021 05/31/2021 06/01/2021 8:07 PM CDT Respiratory Rule-Out 09/20/2024 09/20/2024 025 3:34 PM PLANT MANAGER COVID-19 Rule Out 09/20/2024 09/20/2024 09/20/2024 3:48 PM PLANT MANAGER Influenza - Seasonal Comment:[facility] notified of ICU influenza admission 09/20/2024 09/21/2024 10/01/2024 12:33 AM PLANT MANAGER documented as of this encounter Care Teams Safety Instruction Police Officer Relationship Specialty Start Date End Date Saul Wynn MD [address] [place] [address] PCP - General FAMILY PRACTICE 09/10/16 05/24/20 Dang Salgado NP [address] [place] [address] PCP - General Nurse Practitioner Family 05/25/20 12/10/20 Isaac Nicholson MD [address] [facility] [place] [address] PCP - General FAMILY PRACTICE 12/11/20 09/03/23 Stanislaw Murphy MD [address] [place] [address] PCP - General INTERNAL MEDICINE 09/04/23 Alejandro Red MD [address] [place] [address] [place] Rehabilitation Worker CARDIOVASCULAR DISEASE 09/10/16 01/30/24 María Saldaña, PIPE CLEANING MACHINE OPERATOR, DIGITAL IMAGING SPECIALIST-C [address] [place] [address] [address] [place] [address] [place] Rehabilitation Worker CARDIOVASCULAR DISEASE 11/09/17 01/30/24 Maribel De La Rosa MD [address] [place], [place] [address] Consulting Physician CARDIOVASCULAR DISEASE 01/31/24 documented as of this encounter
--- OUTSIDE RECORDS SUMMARY | 2024-11-02 13:35 | XMS_ITS | Encounter Summary ---
Author Organization [facility] Address Critical access hospital6 [place] [address] Care Team Providers Care Otr Company Truck Driver Name Role Phone Stanislaw Murphy MD Primary Care Provider [phone] Maribel De La Rosa MD Unavailable Reason for Visit * Reason Onset Date Comments Advice 04/01/2024 Encounter Details Date Type Department Care Team (Late st Contact Info) Description 04/01/2024 Telephone [facility] Medical Group Multispecialty [facility] [address] [place] [address] Yomaira Powell MD [address] [place] [address] Advice Social History Tobacco Use [...] Sex Assigned at Male 08/25/2024 10:28 AM HYDRAULIC JACK OPERATOR Legal Sex Male 11:19 PM CDT Gender Identity Not on file Sexual Orientation Not on file 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 Patient states they [...] Description 11/10/2024 2:40 PM CDT Office Visit [facility] [address] [place] [address] Yomaira Powell MD [address] [place] [address] 11/28/2024 12:00 PM CDT Office Visit [facility] [address] [place] [address] Maribel De La Rosa MD [address] [place] [address] documented as of this encounter Visit Diagnoses Not on filedocumented in this encounter Additional Health Concerns Infection Onset Date Last Indicated Resolved Time Respiratory Rule-Out 09/20/2024 09/20/2024 025 3:34 PM HYDRAULIC JACK OPERATOR COVID-19 Rule Out 09/20/2024 09/20/2024 09/20/2024 3:48 PM HYDRAULIC JACK OPERATOR Influenza - Seasonal Comment:[facility] notified of ICU influenza admission 09/20/2024 09/21/2024 10/01/2024 12:33 AM HYDRAULIC JACK OPERATOR Assessment Noted Time PHQ-9 Depression Total Score: 2 03/20/20 21 11:14 AM CDT documented as of this encounter Care Teams Otr Company Truck Driver Relationship Specialty Start Date End Date Stanislaw Murphy MD [address] [place] [address] PCP - General INTERNAL MEDICINE 09/04/23 Maribel De La Rosa MD [address] [place] [address] Consulting Physician CARDIOVASCULAR DISEASE 01/31/24 documented as of this encounter
--- OUTSIDE RECORDS SUMMARY | 2024-11-02 13:35 | XMS_ITS | Encounter Summary ---
Author Organization [facility] Address Critical access hospital6 [place] [address] Care Team Providers Care Cashier Ticket Selling Name Role Phone Kingsley Saul Motta MD Primary Care Provider + [phone] Alejandro Red MD Unavailable [phone] María Saldaña APRN LICENSED CERTIFIED ORTHOTIST-C Unavailable [phone] Dang Salgado NP Primary Care Provider [phone] Isaac Nicholson MD Primary Care Provider + [phone] Stanislaw Murphy MD Primary Care Provider [phone] Maribel De La Rosa MD Unavailable Encounter Details Date Type Department Care Team (Late st Contact Info) Description 10/10/2017 Abstract [facility] [address] [place] [address] , Generic Conversion, Social History Tobacco Use Types Packs/Day Years Used Date Smoking Tobacco: Former Comments:quit 1 week ago is on chantix Alcohol Use Standard Drinks/Week Comments No 0 (1 standard drink = 0.6 oz pur e alcohol) Sex and Gender Information Value Date Recorded Sex Assigned at Male 08/25/2024 10:28 AM DRUM SANDER Legal Sex Male 11:19 PM CDT Gender Identity Not on file Sexual Orientation Not on file 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 [address] [place] [address] Maribel De La Rosa MD [address] [place] [address] documented as of this encounter Visit Diagnoses Not on filedocumented in this encounter Additional Health Concerns Infection Onset Date Last Indicated Resolved Time COVID-19 Rule Out 12/11/2020 12/11/2020 12/11/2020 7:42 PM CDT COVID-19 Rule Out 05/31/2021 05/31/2021 05/31/2021 5:58 PM CDT COVID-19 Rule Out 05/31/2021 05/31/2021 06/01/2021 8:07 PM CDT Respiratory Rule-Out 09/20/2024 09/20/2024 025 3:34 PM DRUM SANDER COVID-19 Rule Out 09/20/2024 09/20/2024 09/20/2024 3:48 PM DRUM SANDER Influenza - Seasonal Comment:[facility] notified of ICU influenza admission 09/20/2024 09/21/2024 10/01/2024 12:33 AM DRUM SANDER documented as of this encounter Care Teams Cashier Ticket Selling Relationship Specialty Start Date End Date Saul Wynn MD [address] [place] [address] PCP - General FAMILY PRACTICE 09/10/16 05/24/20 Dang Salgado NP [address] [place] [address] PCP - General Nurse Practitioner Family 05/25/20 12/10/20 Isaac Nicholson MD [address] [facility] [place] [address] PCP - General FAMILY PRACTICE 12/11/20 09/03/23 Stanislaw Murphy MD [address] [place] [address] PCP - General INTERNAL MEDICINE 09/04/23 Alejandro Red MD [address] [place] [address] [place] Human Resources Records Clerk CARDIOVASCULAR DISEASE 09/10/16 01/30/24 María Saldaña, DOUGH MIXER OPERATOR, LICENSED CERTIFIED ORTHOTIST-C [address] [facility] [address] [place] [address] [place] Human Resources Records Clerk CARDIOVASCULAR DISEASE 11/09/17 01/30/24 Maribel De La Rosa MD [address] [place], [place] [address] Consulting Physician CARDIOVASCULAR DISEASE 01/31/24 documented as of this encounter
--- OUTSIDE RECORDS SUMMARY | 2024-11-02 13:35 | XMS_ITS | Continuity of Care Document ---
Author Organization Located within [facility] Address [address] [place] [address] [place] [address] Phone Care Team Providers Care [employer] Ambassador Name Role Phone Martinez OD, Stephane Unavailable Unavailable Procedures Procedure Date Eye Exam & Treatment Refraction Eye Exam & Treatment Refraction Advance Directives Directive Yes / No Effective Date File Name No Information Encounters Encounter Description Practice Location Reason(s) For Visit Diagnoses Date Provider Providers Copied on Encounter [facility], [address] [place] [address] [address], [place], [place], [id number], tel:[phone] [facility] No Information November- 7-201 0 Martinez OD Stephane. [address] , [address], [place], [place], [facility], [place]. tel:[phone] [facility], [address] [place] [address] [address], [place], [place], [id number], tel:[phone] [facility] No Information 0-200 9 Martinez OD Stephane. [address] , [address], [place], [address], [place]. tel:[phone] Family History Family Member Type Diagnosis Age At Onset No Information Payers Payer name Insurance type Covered alliance party ID Authorerickaa rohan(s) Medicaid [facility] [id number] Social History Type Description Quantity Date Captured [...]
--- OUTSIDE RECORDS SUMMARY | 2024-11-02 13:35 | XMS_ITS | Clinical Summary ---
Author Organization [facility] Address [address] [place] [address] Care Team Providers Care Distribution Lead Name Role Phone Stanislaw Murphy MD Primary Care Provider [phone] Maribel De La Rosa MD Unavailable Allergies [...] 02/16/20 21 Active Nebulizer MiscIndications :Centrilobular emphysema ([facility]) Please provide patient with nebulizer [...] nebulizer solutionIndicat ions:Pulmonary emphysema, unspecified emphysema type ([facility] HHS/HCC) Inhale 1 vial every 6 hours for wheezing 300 mL 2 04/24/20 23 Active montelukast (SINGULAIR) 10 MG tabletIndicatio ns:Moderate persistent asthma without complication (HHS/HCC) Take 1 tablet (10 mg total) by mouth nightly at bedtime. 90 tablet 3 01/31/20 24 Active SYMBICORT 160-4.5 MCG/ACT inhalerIndicati ons:Chronic obstructive pulmonary disease, unspecified COPD type ([facility] HHS/[facility]) INHALE 2 PUFFS INTO THE LUNGS TWICE A DAY 6 g 6 03/07/20 24 Active dilTIAZem CD (CARDIZEM CD) 180 MG 24 hr capsule Take 1 capsule (180 mg total) by mouth every morning. 90 capsule 2 03/23/20 24 Active Umeclidinium Gore (INCRUSE ELLIPTA) 62.5 MCG/ACT AEROSOL POWDER, BREATH ACTIVATEDIndica tions:Pulmonary emphysema, unspecified emphysema type ([facility] HHS/[facility]) Inhale 1 puff into the [...] CONCENTRATOR SUPPLY, DME,Indications :Acute hypoxic respiratory failure ([facility] HHS/[facility]),Asthma -COPD overlap syndrome ([facility] HHS/[facility]),COPD (chronic obstructive pulmonary disease) ([facility]) 1 Device by Nasal route [...] (90 Base) MCG/ACT inhalerIndicati ons:Centrilobul ar emphysema ([facility] HHS/[facility]) Inhale 2 puffs into the lungs every 4 (four) hours as needed. 8 g 10/12/19 25 Active albuterol sulfate HFA 108 (90 Base) MCG/ACT inhalerIndicati ons:Centrilobul ar emphysema ([facility] HHS/[facility]) inhale 2 puffs by mouth every 4 hours as needed 1 g 8 02/10/20 24 2024 Discontinued guaiFENesin ER (MUCINEX) 600 MG 12 hr tabletIndicatio ns:COPD Take 1 tablet (600 mg total) by mouth 2 (two) times daily for 10 days. Indications: COPD 20 tablet 09/27/19 25 2024 albuterol sulfate HFA 108 (90 Base) MCG/ACT inhalerIndicati ons:Centrilobul ar emphysema ([facility]) TAKE 2 PUFFS BY MOUTH EVERY 4 HOURS NEEDED 8 g 10/07/19 25 2024 Discontinued Active Problems Problem Noted Date Diagnosed Date Acute respiratory failure ([facility]) 08/28 Acute hypoxic respiratory failure ([facility]/H CC) 09/21/2024 Lung nodule 04/08/2023 Sleep related hypoxia 06/16/2022 Smoker 03/22/2021 Snoring 03/22/2021 Marijuana smoker 08/23/2019 Cigarette nicotine dependenc e with nicotine-induced disorder 08/23/2019 Low back pain 05/07/2017 Anxiety disorder 05/05/2017 Depression 05/05/2017 Hiatal hernia 05/05/2017 Hip pain, left 05/05/2017 Diabetes mellitus, type 2 ([facility]) 04/26 Asthma-COPD overlap syndrome ([facility]) 1 Hypercholesteremia 05/05/2017 Hypertension 05/05/2017 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 11/23/2016 Mixed hyperlipidemia 11/23/2016 PVD (peripheral vascular disease) HTN (hypertension) Restless leg syndrome Shortness of breath Chest pain Centrilobular emphysema ([facility]) Diabetes ([facility]) COPD (chronic obstructive pu lmonary disease) ([facility]) Claudication Resolved Problems Problem Noted Date Diagnosed Date Resolved Date Sleep apnea 05/05/2017 06/16/2022 Shortness of breath 11/23/2016 11/10/19 18 Vasovagal syncope 11/23/2016 11/09/2017 Encounter for preventive health examination 01/10/2016 04/06/2020 Broken ankle 02/11/2019 Encounters Date Type Department Care Team Description 10/18/2024 Telephone [facility] [address] [place] [phone] Yomaira Powell MD Appointment Request 10/11/2024 Orders Only [facility] [address] [place] [phone] Paige Banuelos MA 10/04/2024 10:00 AM CDT Home Care Visit [facility] [address] [place] [address] Rebecca Luke RN SN NON ADMIT SOC 09/28/2024 8:00 AM SPRINKLER REPAIR TECHNICIAN Home Care Visit [facility] [address] [place] [address] Kathrine Caban RN SN NON ADMIT SOC 09/27/2024 Hospital Follow-up Call [facility] [address] [place] [address] Bri Moreno, GAURAV 09/26/2024 10:15 AM SPRINKLER REPAIR TECHNICIAN Home Care Visit [facility] [address] [place] [address] K[facility] 09/26/2024 10:15 AM SPRINKLER REPAIR TECHNICIAN Home Care Visit [facility] [address] [place] [address] Bri Ham LPN LIAISON TELEPHONE CALL 09/21/2024 6:36 AM SPRINKLER REPAIR TECHNICIAN - 09/26/2024 1:53 PM SPRINKLER REPAIR TECHNICIAN Hospital Encounter [facility] [address] [place] [address] Vilma Garcia MD Hindi, MD Briana Metzger Elijah V, MD Wali, MD Vera Garsia Anas, MD Bhandari, Amit, MD Discharge Disposition: Home or Self Care (Routine Discharge) 09/21/2024 Telephone [facility] [address] [place] [phone] Yomaira Powell MD Called To Cancel Office Appt. 09/20/2024 2:26 PM SPRINKLER REPAIR TECHNICIAN - 09/21/2024 5:35 AM SPRINKLER REPAIR TECHNICIAN Emergency [facility] [address] [facility] [place] [address] Genaro Cordoba MD Phemister, Dominic L, MD Shortness Of Breath Discharge Disposition: Transfer to Acute Care Hospital 09/20/2024 Travel 08/25/2024 10:30 AM SPRINKLER REPAIR TECHNICIAN - 08/25/2024 11:59 PM SPRINKLER REPAIR TECHNICIAN Hospital Encounter [facility] [address] [place] [address] Noamn Linton MD Discharge Disposition: Home or Self Care (Routine Discharge) 08/25/2024 Travel 08/09/2024 Orders Only [facility] [address] [place] [phone] Yomaira Powell MD 08/09/2024 Telephone [facility] [address] [phone] Yomaira Powell MD Insurance [facility]/08[facility]2024 [facility] [address] [place] [phone] Yomaira Powell MD Refill Request from [...] drink = 0.6 oz pur e alcohol) [facility] Utilities Answer Date Recorded In the past 12 months has e [employer], gas, oil, or water Earlier [employer] threatened to shut off services in your [...] any time in the past 12 m [facility], were you homeless or living in a chcf (including now)? 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 Not on file Not on file No t on file Last Filed Vital Signs Vital Sign Reading Time Taken Comments Blood Pressure 134/87 09/26/2024 7:52 AM SPRINKLER REPAIR TECHNICIAN Pulse 119 09/26/2024 7:52 AM SPRINKLER REPAIR TECHNICIAN Temperature 36.5 C (97.7 F) 09/26/2024 7:52 AM SPRINKLER REPAIR TECHNICIAN Respiratory Rate 20 09/26/2024 4:37 AM SPRINKLER REPAIR TECHNICIAN Oxygen Saturation 94% 09/26/2024 7:52 AM SPRINKLER REPAIR TECHNICIAN Inhaled Oxygen Concentration - - Weight 65.3 kg (143 lb 15.4 oz) 09/26/2024 5:00 AM SPRINKLER REPAIR TECHNICIAN Height 180 cm (5' 10.87 ) 09/21/2024 10 :25 AM SPRINKLER REPAIR TECHNICIAN Body Mass Index 20.15 09/21/2024 10:25 AM SPRINKLER REPAIR TECHNICIAN Plan of Treatment Upcoming Encounters Date Type Department Care Team (Late st Contact Info) Description 11/10/2024 2:40 PM CDT Office Visit [facility] [place] [phone] Yomaira Powell MD [address] [place] [address] 11/28/2024 12:00 PM CDT Office Visit [facility] [place] [phone] Maribel De La Rosa MD [address] [place] [address] Health Maintenance Due Date Last Done Comments [...] 60-74 years 1-dose series) 2019 COVID-19 Vaccine ( - 2023- season) 2024 12/04/2020, 11/06/2020 PHQ-2 (Physician [place]) 07/27/2024 Hemoglobin A1C 03/21/2025 09/21/2024, 04/27, 02/15/2022, Additional history exists Lung Cancer Screening 08/25/2025 08/25/2024 , 03/18/2024, 09/04/2023, Additional history exists Colorectal Cancer Screening Colonoscopy (10 Years) 02/15/2031 02/15/2021, 02/15/2021 AAA SCREENING Completed 08/25/2024, 02/25, 09/04/2023, Additional history exists Meningococcal B Vaccine Aged Out No l onger eligible based on patient's age to complete this topic Meningococcal Vaccine Aged Out No annemarie pa eligible based on patient's age to complete this topic RSV Immunizations Under 20 Months Aged Out No longer eligible based on patient's age to complete this topic Medical Devices Implanted Type Area Residential Collections Device Identifier Shelf Expiration Date Model / Serial / Lot Stimulator Lead Implant( 2 Leads)-12/10/19 18 Implanted:Qty: 2 on 12/09/2017 Lead Implant Spine Thoracic [employer] [id number] / / Stimulator Implant- [id number] Implanted:Qty: 1 on 12/09/2017 Stimulator Implant Back [employer] [id number] / [id number] / Description:MR CONDITIONAL A T 1.5 T ONLY, NEED REMOTE TO CHECK FULL BODY ELIGIBLE AND TURN OFF STIMULATION, FOLLOW SCAN CONDITIONS IN MOST RECENT DEVICE TECH MANUAL Procedures Procedure Name Priority Date/Time Associated Diagnosis Comments POCT GLUCOSE - BRYAN DOCKED DEVICE Routine 09/26/2024 10:57 AM SPRINKLER REPAIR TECHNICIAN POCT GLUCOSE - BRYAN DOCKED DEVICE Routine 09/26/2024 5:51 AM SPRINKLER REPAIR TECHNICIAN XR CHEST PORTABLE STAT 09/26/2024 5:3 8 AM SPRINKLER REPAIR TECHNICIAN BLOOD GAS, ARTERIAL LAB STAT 09/26/2024 5:10 AM SPRINKLER REPAIR TECHNICIAN POCT GLUCOSE - BRYAN DOCKED DEVICE Routine 09/25/2024 8:42 PM SPRINKLER REPAIR TECHNICIAN POCT GLUCOSE - BRYAN DOCKED DEVICE Routine 09/25/2024 3:37 PM SPRINKLER REPAIR TECHNICIAN POCT GLUCOSE - BRYAN DOCKED DEVICE Routine 09/25/2024 10:47 AM SPRINKLER REPAIR TECHNICIAN PHOSPHORUS, INORGANIC PHOSPHATE Routine 09/25/2024 5:18 AM SPRINKLER REPAIR TECHNICIAN MAGNESIUM Routine 09/25/2024 5:18 AM SPRINKLER REPAIR TECHNICIAN COMPREHENSIVE METABOLIC PANEL Routine 09/25/2024 5:18 AM SPRINKLER REPAIR TECHNICIAN CBC W/DIFF AUTOMATED Routine 09/25/2024 5:18 AM SPRINKLER REPAIR TECHNICIAN POCT GLUCOSE - BRYAN DOCKED DEVICE Routine 09/25/2024 4:59 AM SPRINKLER REPAIR TECHNICIAN POCT GLUCOSE - BRYAN DOCKED DEVICE Routine 09/24/2024 8:44 PM SPRINKLER REPAIR TECHNICIAN POCT GLUCOSE - BRYAN DOCKED DEVICE Routine 09/24/2024 4:53 PM SPRINKLER REPAIR TECHNICIAN POCT GLUCOSE - BRYAN DOCKED DEVICE Routine 09/24/2024 11:04 AM SPRINKLER REPAIR TECHNICIAN CBC W/DIFF AUTOMATED Routine 09/24/2024 5:21 AM SPRINKLER REPAIR TECHNICIAN PHOSPHORUS, INORGANIC PHOSPHATE Routine 09/24/2024 5:21 AM SPRINKLER REPAIR TECHNICIAN MAGNESIUM Routine 09/24/2024 5:21 AM SPRINKLER REPAIR TECHNICIAN BASIC METABOLIC PANEL Routine 09/24/2024 5:21 AM SPRINKLER REPAIR TECHNICIAN POCT GLUCOSE - BRYAN DOCKED DEVICE Routine 09/24/2024 5:12 AM SPRINKLER REPAIR TECHNICIAN POCT GLUCOSE - BRYAN DOCKED DEVICE Routine 09/23/2024 8:59 PM SPRINKLER REPAIR TECHNICIAN POCT GLUCOSE - BRYAN DOCKED DEVICE Routine 09/23/2024 4:35 PM SPRINKLER REPAIR TECHNICIAN POCT GLUCOSE - BRYAN DOCKED DEVICE Routine 09/23/2024 10:36 AM SPRINKLER REPAIR TECHNICIAN HOME O2 EVAL Routine 09/23/2024 9:57 AM SPRINKLER REPAIR TECHNICIAN POCT GLUCOSE - BRYAN DOCKED DEVICE Routine 09/23/2024 8:29 AM SPRINKLER REPAIR TECHNICIAN CBC W/DIFF AUTOMATED Routine 09/23/2024 2:56 AM SPRINKLER REPAIR TECHNICIAN PHOSPHORUS, INORGANIC PHOSPHATE Routine 09/23/2024 2:56 AM SPRINKLER REPAIR TECHNICIAN MAGNESIUM Routine 09/23/2024 2:56 AM SPRINKLER REPAIR TECHNICIAN BASIC METABOLIC PANEL Routine 09/23/2024 2:56 AM SPRINKLER REPAIR TECHNICIAN POCT GLUCOSE - BRYAN DOCKED DEVICE Routine 09/22/2024 4:54 PM SPRINKLER REPAIR TECHNICIAN POCT GLUCOSE - BRYAN DOCKED DEVICE Routine 09/22/2024 12:30 PM SPRINKLER REPAIR TECHNICIAN POCT GLUCOSE - BRYAN DOCKED DEVICE Routine 09/22/2024 6:52 AM SPRINKLER REPAIR TECHNICIAN CBC W/DIFF AUTOMATED Routine 09/22/2024 5:30 AM SPRINKLER REPAIR TECHNICIAN PHOSPHORUS, INORGANIC PHOSPHATE Routine 09/22/2024 5:30 AM SPRINKLER REPAIR TECHNICIAN MAGNESIUM Routine 09/22/2024 5:30 AM SPRINKLER REPAIR TECHNICIAN BASIC METABOLIC PANEL Routine 09/22/2024 5:30 AM SPRINKLER REPAIR TECHNICIAN POCT GLUCOSE - BRYAN DOCKED DEVICE Routine 09/21/2024 8:05 PM SPRINKLER REPAIR TECHNICIAN POCT GLUCOSE - BRYAN DOCKED DEVICE Routine 09/21/2024 5:56 PM SPRINKLER REPAIR TECHNICIAN POCT GLUCOSE - BRYAN DOCKED DEVICE Routine 09/21/2024 4:02 PM SPRINKLER REPAIR TECHNICIAN POCT ACUTE VENOUS PANEL Routine 09/21/2024 1:22 PM SPRINKLER REPAIR TECHNICIAN POCT GLUCOSE - BRYAN DOCKED DEVICE Routine 09/21/2024 11:54 AM SPRINKLER REPAIR TECHNICIAN USE ECHOCARDIOGRAM Routine 09/21/2024 9: 53 AM SPRINKLER REPAIR TECHNICIAN ECG 12-LEAD Routine 09/21/2024 8:47 AM SPRINKLER REPAIR TECHNICIAN POCT ACUTE VENOUS PANEL Routine 09/21/2024 7:53 AM SPRINKLER REPAIR TECHNICIAN POCT GLUCOSE - BRYAN DOCKED DEVICE Routine 09/21/2024 7:49 AM SPRINKLER REPAIR TECHNICIAN CULTURE, BACTERIA, BLOOD Routine 09/21/2024 7:40 AM SPRINKLER REPAIR TECHNICIAN MRSA SCREENING Nurse Collected Priority 09/21/2024 7:40 AM SPRINKLER REPAIR TECHNICIAN LACTIC ACID W REFLEX (SEPSIS) STAT 09/21/2024 7:40 AM SPRINKLER REPAIR TECHNICIAN PROCALCITONIN (PCT) Routine 09/21/2024 7 :40 AM SPRINKLER REPAIR TECHNICIAN AMMONIA Routine 09/21/2024 7:40 AM SPRINKLER REPAIR TECHNICIAN CORTISOL, TOTAL Routine 09/21/2024 7:40 AM SPRINKLER REPAIR TECHNICIAN RESPIRATORY PCR PANEL 2 Nurse Collected Priority 09/21/2024 7:29 AM SPRINKLER REPAIR TECHNICIAN HEMOGLOBIN, GLYCOSYLATED Routine 09/21/2024 7:17 AM SPRINKLER REPAIR TECHNICIAN PROTHROMBIN TIME, VENOUS Routine 09/21/2024 7:17 AM SPRINKLER REPAIR TECHNICIAN CBC W/DIFF AUTOMATED Routine 09/21/2024 7:17 AM SPRINKLER REPAIR TECHNICIAN LIPASE Routine 09/21/2024 7:17 AM SPRINKLER REPAIR TECHNICIAN THYROID STIM HORMONE TSH Routine 09/21/2024 7:17 AM SPRINKLER REPAIR TECHNICIAN PHOSPHORUS, INORGANIC PHOSPHATE Routine 09/21/2024 7:17 AM SPRINKLER REPAIR TECHNICIAN LACTIC ACID Routine 09/21/2024 7:17 AM SPRINKLER REPAIR TECHNICIAN MAGNESIUM Routine 09/21/2024 7:17 AM SPRINKLER REPAIR TECHNICIAN TROPONIN, QUANT Routine 09/21/2024 7:17 AM SPRINKLER REPAIR TECHNICIAN COMPREHENSIVE METABOLIC PANEL Routine 09/21/2024 7:17 AM SPRINKLER REPAIR TECHNICIAN BLOOD GAS, VENOUS STAT 09/20/2024 8:5 7 PM SPRINKLER REPAIR TECHNICIAN CRITICAL CARE Routine 09/20/2024 7:05 PM SPRINKLER REPAIR TECHNICIAN BLOOD GAS, VENOUS STAT 09/20/2024 5:4 6 PM SPRINKLER REPAIR TECHNICIAN CTA CHEST PE PROTOCOL STAT 09/20/2024 4:37 PM SPRINKLER REPAIR TECHNICIAN BLOOD GAS, VENOUS STAT 09/20/2024 4:2 5 PM SPRINKLER REPAIR TECHNICIAN ECG 12-LEAD Routine 09/20/2024 2:59 PM SPRINKLER REPAIR TECHNICIAN BLOOD GAS, VENOUS STAT 09/20/2024 2:4 7 PM SPRINKLER REPAIR TECHNICIAN D-DIMER, QUANTITATIVE STAT 09/20/2024 2:47 PM SPRINKLER REPAIR TECHNICIAN LACTIC ACID W REFLEX (SEPSIS) STAT 09/20/2024 2:47 PM SPRINKLER REPAIR TECHNICIAN TROPONIN, QUANT STAT 09/20/2024 2:47 PM SPRINKLER REPAIR TECHNICIAN COMPREHENSIVE METABOLIC PANEL STAT 09/20/2024 2:47 PM SPRINKLER REPAIR TECHNICIAN CBC W/DIFF AUTOMATED STAT 09/20/2024 2:47 PM SPRINKLER REPAIR TECHNICIAN XR CHEST PORTABLE STAT 09/20/2024 2:4 5 PM SPRINKLER REPAIR TECHNICIAN CORONAVIRUS (COVID-19) ANTIGEN STAT 09/20/2024 2:40 PM SPRINKLER REPAIR TECHNICIAN INFLUENZA A & B STAT 09/20/2024 2:40 PM SPRINKLER REPAIR TECHNICIAN CT CHEST WO CON Routine 08/25/2024 10:37 AM SPRINKLER REPAIR TECHNICIAN Lung nodule COLONOSCOPY 02/15/2021 8:22 AM CDT LIPID PANEL (OUTSIDE LAB) Routine 11/05/2017 from Last 3 Months or Most Recently Relevant to Health Maintenance Results * (ABNORMAL) POCT glucose (09/26/2024 10:57 AM SPRINKLER REPAIR TECHNICIAN) Only the most recent of22 resultswithin the time period is included. GLUCOSE POC 172(H) 70 - 109 09/26/2024 11:11 AM SPRINKLER REPAIR TECHNICIAN [facility] 09/26/2024 10:5 7 AM SPRINKLER REPAIR TECHNICIAN Ben Medellin MD POCT ORDERABLES - DEVICE Final Result [facility] [address] [place] [address], [place] [phone] [id number] * XR CHEST PORTABLE (09/26/2024 5:38 AM SPRINKLER REPAIR TECHNICIAN) Only the most recent of2 resultswithin the time period is included. Anatomical Region Laterality Modality Chest Radiographic Nisreen ging 09/26/2024 5:56 AM SPRINKLER REPAIR TECHNICIAN Impressions 09/26/2024 5:59 AM SPRINKLER REPAIR TECHNICIAN IMPRESSION:===== No acute findings. Resolution of bilateral lower lobe interstitial prominence.. Referred By: GEOVANNY GALLARDO Interpreted By: Devin Ferraro MD, 09/26/2024 5:56 AM Narrative 09/26/2024 5:59 AM SPRINKLER REPAIR TECHNICIAN [address] [address] EXAMINATION: CHEST RADIOGRAPH SINGLE VIEW Exam date/time: 09/26/2024 5:36 AM Reason For Exam: SOB Comparison: 09/20/2024 Technique: Upright AP view of the chest Findings: Heart size normal. Proximal airways unremarkable. No suspicious pulmonary lesion, pneumothorax, or pleural effusion. Emphysematous change. Thoracic Intrathecal electrodes. Partially visualized cervical spine hardware. Calcified granulomas. ===== Procedure Note Devin Ferraro MD - 09/26/[address] [address] EXAMINATION: CHEST RADIOGRAPH SINGLE VIEW Exam date/time: [...] (ABNORMAL) ARTERIAL BLOOD GAS (09/26/2024 5:10 AM SPRINKLER REPAIR TECHNICIAN) PH ARTERIAL 7.45 7.35 - 7.45 09/26/2024 5:22 AM SPRINKLER REPAIR TECHNICIAN [facility] PCO2 46.5(H) 35.0 - 45.0 MMHG 09/26/2024 5:22 AM [facility] PO2 67.8(L) 83.0 - 108.0 MMHG 09/26/2024 5:22 AM SPRINKLER REPAIR TECHNICIAN [facility] BICARB ARTERIAL 31.8(H) 22 - 26 MMOL/L 09/26/2024 5:22 AM [facility] TOTAL CO2 ARTERIAL 33.3(H) 23 - 27 MMOL/L 09/26/2024 5:22 AM [facility] BE/BASE EXCESS 7.0(H) 0 - 2 MMOL/L 09/26/2024 5:22 AM [facility] O2 Saturation 94(L) 95 - 98 % 09/26/2024 5:22 AM SPRINKLER REPAIR TECHNICIAN [facility] BRANDEN TEST POSITIVE 09/26/2024 5:10 AM SPRINKLER REPAIR TECHNICIAN [facility] OXYGEN STATUS 3 LT 09/26/2024 5:10 AM [facility] DRAW SITE ARTERIAL LEFT BRACHIAL 09/26/2024 5:10 AM [facility] 09/26/2024 5:10 AM SPRINKLER REPAIR TECHNICIAN Ben Medellin MD LABORATORY Final Result [facility] [address] [place] [address], [id number] * (ABNORMAL) COMPREHENSIVE METABOLIC PANEL (09/25/2024 5:18 AM SPRINKLER REPAIR TECHNICIAN) Only the most recent of3 resultswithin the time period is included. SODIUM S/P/B 137 136 - 145 MMOL/L 09/25/2024 5:55 AM [facility] POTASSIUM S/P/B 3.5 3.5 - 5.1 MMOL/L 09/25/2024 5:55 AM [facility] CHLORIDE S/P/B 103 97 - 115 MMOL/L 09/25/2024 5:55 AM [facility] CO2 30.8 21.0 - 32.0 MMOL/L 09/25/2024 5:55 AM [facility] GLUCOSE 114(H) 74 - 106 MG/DL 09/25/2024 5:55 AM [facility] BUN 19(H) 7 - 18 MG/DL 09/25/2024 5:55 AM [facility] CREATININE S/P/B 0.51(L) 0.70 - 1.30 MG/DL 09/25/2024 5:55 AM [facility] CALCIUM S/P/B 9.5 8.5 - 10.1 MG/DL 09/25/2024 5:55 AM [facility] BILIRUBIN TOTAL S/P/B 0.3 0.2 - 1.0 MG/DL 09/25/2024 5:55 AM [facility] ALKALINE PHOSPHATASE S/P/B 82 45 - 115 U/L 09/25/2024 5:55 AM [facility] AST 7(L) 15 - 37 U/L 09/25/2024 5:55 AM [facility] ALT 21 16 - 61 U/L 09/25/2024 5:55 AM SPRINKLER REPAIR TECHNICIAN [facility] TOTAL PROTEIN S/P/B 6.7 6.4 - 8.2 G/DL 09/25/2024 5:55 AM [facility] ALBUMIN S/P/B 3.0(L) 3.4 - 5.0 G/DL 09/25/2024 5:55 AM [facility] ANION GAP 3.2 2.0 - 10.0 MMOL/L 09/25/2024 5:55 AM [facility] OSMOLALITY (CALC) 287 MOSM/KG 025 5:55 AM [facility] Comment:REFERENCE RANGE NOT ESTABLISHED GFR ESTIMATE >90 >90 ML/MIN/1. 73 M2 09/25/2024 5:55 AM [facility] GFR NOTES GFR REFERENCE S: 09/25/2024 5:55 AM [facility] Comment: THE ESTIMATED GFR IS [...] FAILURE: <15 ml/min/1.73 m2 09/25/2024 5:18 AM SPRINKLER REPAIR TECHNICIAN us Nina Gamez MD LABORATORY Final Result [facility] [address] [place] [address], [id number] * (ABNORMAL) CBC W/DIFF AUTOMATED (09/25/2024 5:18 AM SPRINKLER REPAIR TECHNICIAN) Only the most recent of6 resultswithin the time period is included. WBC 6.65 4.00 - 10.80 x10'3/uL 09/25/2024 5:38 AM [facility] RBC 4.99 4.50 - 6.10 x10'6/uL 09/25/2024 5:38 AM [facility] HGB 14.7 12.0 - 16.0 G/DL 09/25/2024 5:38 AM [facility] HCT 43.4 37.0 - 52.0 % 09/25/2024 5:38 AM [facility] MCV 87.0 78.0 - 100.0 FL 09/25/2024 5:38 AM [facility] MCH 29.5 27.0 - 31.0 PG 09/25/2024 5:38 AM [facility] MCHC 33.9 33.0 - 36.0 G/DL 09/25/2024 5:38 AM [facility] RDW 13.9 11.5 - 14.5 % 09/25/2024 5:38 AM [facility] PLT 216 150 - 350 x10'3/uL 09/25/2024 5:38 AM [facility] MPV 9.3 7.4 - 10.4 FL 09/25/2024 5:38 AM [facility] DIFFERENTIAL TYPE MANUAL DIFFERENTIAL 09/25/2024 6:09 AM [facility] NRBC % 0.0 % 09/25/2024 6:09 AM [facility] SEG NEUTROPHILS 59 % 6:09 AM [facility] LYMPHOCYTES 30 % 09/25/2024 6:09 AM [facility] MONOCYTES 10 % 09/25/2024 6:09 AM [facility] EOSINOPHILS 0 % 09/25/2024 6:09 AM [facility] BASOPHILS 0 % 09/25/2024 6:09 AM [facility] METAMYELOCYTES 1 % 09/25/2024 6:09 AM [facility] ABS. NEUTROPHILS 3.92 1.60 - 8.30 x10'3/uL 09/25/2024 6:09 AM [facility] ABS. LYMPHOCYTES 2.00 0.80 - 4.70 x10'3/uL 09/25/2024 6:09 AM [facility] ABS. MONOCYTES 0.67 0.00 - 1.50 x10'3/uL 09/25/2024 6:09 AM [facility] ABS. EOSINOPHILS 0.00 0.00 - 0.40 x10'3/uL 09/25/2024 6:09 AM [facility] ABS. BASOPHILS 0.00 0.00 - 0.20 x10'3/uL 09/25/2024 6:09 AM [facility] ABS. METAMYELOCYTES 0.07(H) 0.00 x10'3/uL 09/25/2024 6:09 AM [facility] ABS. NUCLEATED RBC'S 0.00 0.00 - 0.01 x10'3/uL 09/25/2024 6:09 AM [facility] RBC MORPHOLOGY SLIDE REVIEWED 2024 6:09 AM [facility] POIKLO SLIGHT 09/25/2024 6:09 AM [facility] OVALOCYTES PRESENT 09/25/2024 6:09 AM [facility] ACANTHOCYTES PRESENT 09/25/2024 6:09 AM [facility] PLT EST. ADEQUATE 09/25/2024 6:09 AM [facility] WBC MORPHOLOGY SEE NOTE 09/25/2024 6:09 AM [facility] Comment:Reactive lymphocytes present. 09/25/2024 5:18 AM SPRINKLER REPAIR TECHNICIAN us Nina Gamez MD LABORATORY Final Result Performing Organization Address [facility] [facility] Co de Phone Number [facility] [address] [place] [address], [place] [phone] * PHOSPHORUS, INORGANIC PHOSPHATE (09/25/2024 5:18 AM SPRINKLER REPAIR TECHNICIAN) Only the most recent of5 resultswithin the time period is included. PHOSPHORUS 2.8 2.5 - 4.9 MG/DL 09/25/2024 5:55 AM SPRINKLER REPAIR TECHNICIAN [facility] 09/25/2024 5:18 AM SPRINKLER REPAIR TECHNICIAN us Nina Gamez MD LABORATORY Final Result Performing Organization Address [facility] de Phone Number [facility] [address] [place] [address], [id number] * MAGNESIUM (09/25/2024 5:18 AM SPRINKLER REPAIR TECHNICIAN) Only the most recent of5 resultswithin the time period is included. MAGNESIUM 1.8 1.6 - 2.6 MG/DL 09/25/2024 5:55 AM SPRINKLER REPAIR TECHNICIAN [facility] 09/25/2024 5:18 AM SPRINKLER REPAIR TECHNICIAN us Nina Gamez MD LABORATORY Final Result Performing Organization Address [facility] Co de Phone Number [facility] [address] [place] [address], [place] [phone] * (ABNORMAL) BASIC METABOLIC PANEL (09/24/2024 5:21 AM SPRINKLER REPAIR TECHNICIAN) Only the most recent of3 resultswithin the time period is included. SODIUM S/P/B 138 136 - 145 MMOL/L 09/24/2024 6:39 AM SPRINKLER REPAIR TECHNICIAN [facility] POTASSIUM S/P/B 3.8 3.5 - 5.1 MMOL/L 09/24/2024 6:39 AM [facility] CHLORIDE S/P/B 102 97 - 115 MMOL/L 09/24/2024 6:39 AM [facility] CO2 32.8(H) 21.0 - 32.0 MMOL/L 09/24/2024 6:39 AM [facility] GLUCOSE 127(H) 74 - 106 MG/DL 09/24/2024 6:39 AM [facility] BUN 19(H) 7 - 18 MG/DL 09/24/2024 6:39 AM [facility] CREATININE S/P/B 0.53(L) 0.70 - 1.30 MG/DL 09/24/2024 6:39 AM [facility] CALCIUM S/P/B 9.5 8.5 - 10.1 MG/DL 09/24/2024 6:39 AM [facility] ANION GAP 3.2 2.0 - 10.0 MMOL/L 09/24/2024 6:39 AM [facility] OSMOLALITY (CALC) 290 MOSM/KG 025 6:39 AM [facility] Comment:REFERENCE RANGE NOT ESTABLISHED GFR ESTIMATE >90 >90 ML/MIN/1. 73 M2 09/24/2024 6:39 AM [facility] GFR NOTES GFR REFERENCE S: 09/24/2024 6:39 AM [facility] Comment: THE ESTIMATED GFR IS [...] FAILURE: <15 ml/min/1.73 m2 09/24/2024 5:21 AM SPRINKLER REPAIR TECHNICIAN Domenica Mcgovern MD LABORATORY Final Result [facility] [address] [place] [address], [phone] * (ABNORMAL) POCT ACUTE VENOUS PANEL (09/21/2024 1:22 PM SPRINKLER REPAIR TECHNICIAN) Only the most recent of2 resultswithin the time period is included. SODIUM WHOLE BLOOD 144 138 - 146 mmol/L 09/21/2024 1:23 PM SPRINKLER REPAIR TECHNICIAN [facility] POTASSIUM WHOLE BLOOD 2.9(L) 3.5 - 4.9 mmol/L 09/21/2024 1:23 PM SPRINKLER REPAIR TECHNICIAN [facility] CA IONIZED WH BLOOD 1.01(L) 1.12 - 1.32 mmol/L 09/21/2024 1:23 PM SPRINKLER REPAIR TECHNICIAN [facility] POC PH VENOUS 7.376 7.31 - 7.41 09/21/2024 1:23 PM SPRINKLER REPAIR TECHNICIAN [facility] POC PCO2 VENOUS 37.4(L) 41.0 - 51.0 MMHG 09/21/2024 1:23 PM SPRINKLER REPAIR TECHNICIAN [facility] POC PO2 VENOUS 40 25 - 40 MMHG 09/21/2024 1:23 PM SPRINKLER REPAIR TECHNICIAN [facility] POC HCO3 VENOUS 21.9(L) 23 - 28 MMOL/L 09/21/2024 1:23 PM SPRINKLER REPAIR TECHNICIAN [facility] POC TCO2 VENOUS 23(L) 24 - 29 MMOL/L 09/21/2024 1:23 PM [facility] POC BASE DEFICIT VENOUS 3(H) 0 - 2 MMOL/L 09/21/2024 1:23 PM [facility] POC HEMATOCRIT 32(L) 38 - 51 % 09/21/2024 1:23 PM [facility] TIME TEST WAS PERFORMED: 1322 09/21/2024 1:23 PM SPRINKLER REPAIR TECHNICIAN [facility] 09/21/2024 1:22 PM SPRINKLER REPAIR TECHNICIAN Domenica Mcgovern MD POCT ORDERABLES - DEVICE Final Result [facility] [address] [place] [address], [id number] * USE ECHOCARDIOGRAM (09/21/2024 9:53 AM SPRINKLER REPAIR TECHNICIAN) Anatomical Region Laterality Modality Cardiac Echocardiogram 09/21/2024 7:26 AM SPRINKLER REPAIR TECHNICIAN Narrative 09/21/2024 10:42 PM SPRINKLER REPAIR TECHNICIAN Echocardiography Report Pat.Name: JENNIFER WATTERS Pat.ID: [id number] St.Date: 09/21/2024 Refer.MD: [id number] MEKA Rowe EWDPROV EWDPROV Exam Time: 7:26:00 AM Study Type:ECHO WITH CARDIAC DOPPLER COMP Height: 71 in Weight: 155 lb BSA: 1.89 m2 Age: 2 1960,64Y Sex: M BP: 121/75 HR: 87 bpm Sonogrphr: Marie Sahu RDCS Pat. Stat.:Inpatient Room: [place] [address] CPT - 4: 74413 Reason for Study:Hypoxia Procedures: 2D, M-mode, Doppler, [...] Mass 2D Value 98.6 g LV Mass [id number] Value 52.2 g/m2 2D Left Ventricle LVIDd [...] 09/21/2024 Echocardiography Report Pat.Name: JENNIFER WATTERS Pat.ID: [id number] .Date: 09/21/2024 Steph.: [id number] MEKA Rowe EWDPROV EWDPROV Exam Time: 7:26:00 AM Study Type:ECHO WITH CARDIAC DOPPLER COMP Height: 71 in Weight: 155 lb BSA: 1.89 m2 Age: 2 1960,64Y Sex: M BP: 121/75 HR: 87 bpm Sonogrphr: Marie Sahu RUST Pat. Stat.:Inpatient Room: [place] [address] CPT - 4: 34774 Reason for Study:Hypoxia Procedures: 2D, M-mode, Doppler, [...] Mass 2D Value 98.6 g LV Mass [id number] Value 52.2 g/m2 2D Left Ventricle LVIDd [...] 10:42 PM Maribel De La Rosa M.D. us Vilma Garcia MD ECHO Final Result * ECG 12 lead (09/21/2024 8:47 AM SPRINKLER REPAIR TECHNICIAN) Only the most recent of2 resultswithin the time period is included. 09/21/2024 8:47 AM SPRINKLER REPAIR TECHNICIAN Narrative [facility] - 09/21/2024 7:55 PM SPRINKLER REPAIR TECHNICIAN [address] [address] Test Date: 2024-09-21 Pat Name: JENNIFER WATTERS Department: 1 Room: [place] [address] Gender: Male Residential Builder: Ms : 1960 Requested By: VILMA GARCIA Order Number: [id number] Reading MD: Darius Palacios Measurements Intervals [place] Rate: 88 P: 87 [place]: 151 QRS: 54 QRSD: 90 T: 74 QT: 355 QTc: 430 Interpretive Statements SINUS RHYTHM POSSIBLE LEFT ATRIAL ENLARGEMENT [-0.1mV P-WAVE IN V1/V2] POSSIBLE RIGHT VENTRICULAR CONDUCTION DELAY [RSR (QR) IN V1/V2] NKLER REPAIR TECHNICIAN Procedure Note Darius Palacios MD - 09/21/2024 [facility] [address] [place] [address] Test Date: 2024-09-21 Pat Name: JENNIFER WATTERS Department: 1 Room: [place] [address] Gender: Male Residential Builder: Rakesh : 1960 Requested By: VILMA GARCIA Order Number: [id number] Reading MD: Darius Palacios Measurements Intervals [place] Rate: 88 P: 87 [place]: 151 QRS: 54 QRSD: 90 T: 74 QT: 355 QTc: 430 Interpretive Statements SINUS RHYTHM POSSIBLE LEFT ATRIAL ENLARGEMENT [-0.1mV P-WAVE IN V1/V2] POSSIBLE RIGHT VENTRICULAR CONDUCTION DELAY [RSR (QR) IN V1/V2] NKLER REPAIR TECHNICIAN Vilma Garcia MD ECG ORDERABLES Final Result Performing Organization Address [facility] Co de Phone Number [facility] * (ABNORMAL) LACTIC ACID W REFLEX (SEPSIS) (09/21/2024 7:40 AM SPRINKLER REPAIR TECHNICIAN) Only the most recent of2 resultswithin the time period is included. LACTIC ACID VENOUS 2.1(H) 0.4 - 2.0 MMOL/L 09/21/2024 8:31 AM SPRINKLER REPAIR TECHNICIAN [facility] 09/21/2024 7:40 AM SPRINKLER REPAIR TECHNICIAN Vilma Garcia MD LABORATORY Final Result Performing Organization Address City/[facility]/ZIP Co de Phone Number [facility] [address] [place] [address], [phone] * PROCALCITONIN (PCT) (09/21/2024 7:40 AM SPRINKLER REPAIR TECHNICIAN) Procalcitonin 0.07 0.00 - 0.49 NG/ML 09/21/2024 10:14 AM SPRINKLER REPAIR TECHNICIAN [facility] 09/21/2024 7:40 AM SPRINKLER REPAIR TECHNICIAN Vilma Garcia MD LABORATORY Final Result Performing Organization Address City/[facility] Co de Phone Number [facility] [address] [place] [address], [phone] * MRSA SCREENING (09/21/2024 7:40 AM SPRINKLER REPAIR TECHNICIAN) Pathologist [facility] SPECIMEN SOURCE RESPIRATORY, NOSE 09/21/2024 7:30 AM SPRINKLER REPAIR TECHNICIAN [facility] MRSA BY PCR NASAL METHICILLIN RESISTANT STAPH AUREUS NOT DETECTED METHICILLIN RESISTANT STAPH AUREUS NOT DETECTED 09/22/2024 10:27 AM SPRINKLER REPAIR TECHNICIAN [facility] NASAL STRUCTURE / Unknown 09/21/2024 7:40 AM SPRINKLER REPAIR TECHNICIAN us Vilma Garcia MD MICROBIOLOGY - GENERAL ORDERABL ES Final Result Performing Organization Address [facility] de Phone Number [facility] [address] [place] [address], [phone] * CORTISOL, TOTAL (09/21/2024 7:40 AM SPRINKLER REPAIR TECHNICIAN) [facility] CORTISOL 7.6 mcg/dL 09/21/2024 8:58 AM SPRINKLER REPAIR TECHNICIAN [facility] Comment: A.M. SPECIMENS: 5.3 TO 22.5 mcg/dL P.M. SPECIMENS: 3.4 TO 16.8 mcg/dL ASSAY PERFORMED BY CHEMILUMINESCENCE METHODOLOGY USING [employer] XPT REAGENT. PATIENT RESULTS DETERMINED BY ASSAYS USING DIFFERENT MANUFACTURERS FOR METHODS MAY NOT BE COMPARABLE. 09/21/2024 7:40 AM SPRINKLER REPAIR TECHNICIAN us Vilma Garcia MD LABORATORY Final Result Performing Organization Address [facility] Co de Phone Number [facility] [address] [place] [address], [phone] * CULTURE, BACTERIA, BLOOD (09/21/2024 7:40 AM SPRINKLER REPAIR TECHNICIAN) Pathologist [facility] SPEC DESCRIPTION BLOOD 09/21/2024 6:40 AM SPRINKLER REPAIR TECHNICIAN [facility] SPECIAL REQUESTS NO SPECIAL REQUEST 09/21/2024 6:40 AM SPRINKLER REPAIR TECHNICIAN [facility] CULTURE RESULT NO GROWTH 5 DAYS 09/26/2024 4:38 PM SPRINKLER REPAIR TECHNICIAN [facility] BLOOD SPECIMEN OBTAINED FOR BLOOD CULTURE / Unknown 09/21/2024 7:40 AM SPRINKLER REPAIR TECHNICIAN 09/21/2024 8:02 AM SPRINKLER REPAIR TECHNICIAN us Vilma Garcia MD MICROBIOLOGY - GENERAL ORDERABL ES Final Result [facility] [address] [place] [address], [phone] * AMMONIA (09/21/2024 7:40 AM SPRINKLER REPAIR TECHNICIAN) [facility] AMMONIA 23 11 - 32 UMOL/L 09/21/2024 8:29 AM SPRINKLER REPAIR TECHNICIAN [facility] 09/21/2024 7:40 AM SPRINKLER REPAIR TECHNICIAN us Vilma Garcia MD LABORATORY Final Result Performing Organization Address [facility] Co de Phone Number [facility] [address] [place] [address], [phone] * (ABNORMAL) BIOFIRE PCR UPPER RESPIRATORY PROFILE (RESPIRATORY PCR PANEL 2) (09/21/2024 7:29 AM SPRINKLER REPAIR TECHNICIAN) [facility] ADENOVIRUS PCR (RESP) NOT DETECTED NOT DETECTED 09/21/2024 9:08 AM SPRINKLER REPAIR TECHNICIAN [facility] CORONAVIRUS 229E PCR (RESP) NOT DETECTED NOT DETECTED 09/21/2024 9:08 AM SPRINKLER REPAIR TECHNICIAN [facility] CORONAVIRUS HKU1 PCR (RESP) NOT DETECTED NOT DETECTED 09/21/2024 9:08 AM [facility] CORONAVIRUS NL63 PCR (RESP) NOT DETECTED NOT DETECTED 09/21/2024 9:08 AM SPRINKLER REPAIR TECHNICIAN [facility] CORONAVIRUS OC43 PCR (RESP) NOT DETECTED NOT DETECTED 09/21/2024 9:08 AM [facility] METAPNEUMOVIRUS PCR (RESP) NOT DETECTED NOT DETECTED 09/21/2024 9:08 AM [facility] RHINOVIRUS/ENTEROV IRUS PCR (RESP) NOT DETECTED NOT DETECTED 09/21/2024 9:08 AM [facility] INFLUENZA A PCR (RESP) DETECTED(AA ) NOT DETECTED 09/21/2024 9:08 AM [facility] INFLUENZA A/H1-2009 PCR (RESP) DETECTED(AA ) NOT DETECTED 09/21/2024 9:08 AM [facility] Comment: RESULTS PHONED TO AND READ BACK BY: WANDA ASIF [id number] 09/21/24 EKG INFLUENZA B PCR (RESP) NOT DETECTED NOT DETECTED 09/21/2024 9:08 AM [facility] PARAINFLUENZA 1 PCR (RESP) NOT DETECTED NOT DETECTED 09/21/2024 9:08 AM [facility] PARAINFLUENZA 2 PCR (RESP) NOT DETECTED NOT DETECTED 09/21/2024 9:08 AM [facility] PARAINFLUENZA 3 PCR (RESP) NOT DETECTED NOT DETECTED 09/21/2024 9:08 AM [facility] PARAINFLUENZA 4 PCR (RESP) NOT DETECTED NOT DETECTED 09/21/2024 9:08 AM [facility] RSV PCR (RESP) NOT DETECTED NOT DETECTED 09/21/2024 9:08 AM [facility] B PARAPERTUSIS PCR (RESP) NOT DETECTED NOT DETECTED 09/21/2024 9:08 AM [facility] BORDETELLA PERTUSSIS PCR (RESP) NOT DETECTED NOT DETECTED 09/21/2024 9:08 AM [facility] CHLAMYDOPHILA PNEUMONIAE PCR (RESP) NOT DETECTED NOT DETECTED 09/21/2024 9:08 AM [facility] MYCOPLASMA PNEUMONIAE PCR (RESP) NOT DETECTED NOT DETECTED 09/21/2024 9:08 AM [facility] CORONAVIRUS SARS COV 2 PCR (RESP) NOT DETECTED NOT DETECTED 09/21/2024 9:08 AM SPRINKLER REPAIR TECHNICIAN [facility] NASOPHARYNGEAL SWAB / Unknown 09/21/2024 7:29 AM SPRINKLER REPAIR TECHNICIAN us Vilma Garcia MD MICROBIOLOGY - GENERAL ORDERABL ES Final Result Performing Organization Address [facility] Co de Phone Number [facility] [address] [place] [address], [phone] * (ABNORMAL) HEMOGLOBIN, GLYCOSYLATED (09/21/2024 7:17 AM SPRINKLER REPAIR TECHNICIAN) HGB A1C 6.6(H) <5.7 % 09/21/2024 8:15 AM SPRINKLER REPAIR TECHNICIAN [facility] ESTIMATED AVG GLUCOSE 143(H) 74 - 114 MG/DL 09/21/2024 8:15 AM SPRINKLER REPAIR TECHNICIAN [facility] 09/21/2024 7:17 AM SPRINKLER REPAIR TECHNICIAN us Vilma Garcia MD LABORATORY Final Result Performing Organization Address [facility] Co de Phone Number [facility] [address] [place] [address], [id number] * PROTHROMBIN TIME, VENOUS (09/21/2024 7:17 AM SPRINKLER REPAIR TECHNICIAN) PROTIME 10.8 9.4 - 12.5 SEC 09/21/2024 7:54 AM SPRINKLER REPAIR TECHNICIAN [facility] INR 0.9 0.8 - 1.1 09/21/2024 7:54 AM SPRINKLER REPAIR TECHNICIAN [facility] 09/21/2024 7:17 AM SPRINKLER REPAIR TECHNICIAN us Vilma Garcia MD LABORATORY Final Result Performing Organization Address [facility] Co de Phone Number [facility] [address] [place] [address], [phone] * (ABNORMAL) LACTIC ACID - SINGLE (09/21/2024 7:17 AM SPRINKLER REPAIR TECHNICIAN) Pathologist [facility] LACTIC ACID VENOUS 2.4(H) 0.4 - 2.0 MMOL/L 09/21/2024 8:03 AM SPRINKLER REPAIR TECHNICIAN [facility] Comment: AN ORDER FOR A REPEAT LACTIC ACID TEST IS REQUIRED WITHIN 6 HOURS OF DIAGNOSIS ON A PATIENT WITH SEVERE SEPSIS. 09/21/2024 7:17 AM SPRINKLER REPAIR TECHNICIAN Vilma Garcia MD LABORATORY Final Result Performing Organization Address City/[facility]/ZIP Co de Phone Number [facility] [address] [place] [address], [phone] * TROPONIN, QUANT (09/21/2024 7:17 AM SPRINKLER REPAIR TECHNICIAN) Only the most recent of2 resultswithin the time period is included. Pathologist [facility] TROPONIN I HIGH SENSITIVITY 7 0 - 78 ng/L 09/21/2024 8:09 AM SPRINKLER REPAIR TECHNICIAN [facility] 09/21/2024 7:17 AM SPRINKLER REPAIR TECHNICIAN us Vilma Garcia MD LABORATORY Final Result Performing Organization Address City/[facility]/ZIP Co de Phone Number [facility] [address] [place] [address], [phone] * (ABNORMAL) THYROID STIM HORMONE, TSH (09/21/2024 7:17 AM SPRINKLER REPAIR TECHNICIAN) Pathologist [facility] TSH 0.273(L) 0.358 - 3.740 uIU/ML 09/21/2024 8:09 AM SPRINKLER REPAIR TECHNICIAN [facility] Comment: ASSAY PERFORMED BY CHEMILUMINESCENCE METHODOLOGY USING [employer] VISTA REAGENT. PATIENT RESULTS DETERMINED BY ASSAYS USING DIFFERENT MANUFACTURERS FOR METHODS MAY NOT BE COMPARABLE. 09/21/2024 7:17 AM SPRINKLER REPAIR TECHNICIAN Vilma Garcia MD LABORATORY Final Result [facility] [address] [place] [address], [id number] * LIPASE (09/21/2024 7:17 AM SPRINKLER REPAIR TECHNICIAN) LIPASE 15 13 - 75 UNITS/L 09/21/2024 8:09 AM [facility] 09/21/2024 7:17 AM SPRINKLER REPAIR TECHNICIAN Vilma Garcia MD LABORATORY Final Result Performing Organization Address [facility] Co de Phone Number [facility] [address] [place] [address], [place] [phone] * (ABNORMAL) Blood gas, venous (09/20/2024 8:57 PM SPRINKLER REPAIR TECHNICIAN) Only the most recent of4 resultswithin the time period is included. Pathologist [facility] PH VENOUS 7.36 7.32 - 7.43 09/20/2024 9:[address] [facility] PCO2 VENOUS 56.0 MMHG 09/20/2024 9:[address] [facility] Comment:NO REFERENCE RANGE H BEEN ESTABLISHED PO2 VENOUS 61.0 MM HG 09/20/2024 9:[address] [facility] Comment:NO REFERENCE RANGE H BEEN ESTABLISHED TOTAL CO2 VENOUS 33.3(H) 22.0 - 26.0 MMOL/L 09/20/2024 9:[address] [facility] BASE EXCESS VENOUS 4.6 MMOL/L 09/20/2024 9:[address] [facility] Comment:NO REFERENCE RANGE H BEEN ESTABLISHED O2 SAT VENOUS 90 % 09/20/2024 9:[address] [facility] Comment:NO REFERENCE RANGE H BEEN ESTABLISHED BICARB VENOUS 31.6(H) 22.0 - 29.0 MMOL/L 09/20/2024 9:[address] [facility] O2 ADMIN VENOUS 35% 8:57 PM SPRINKLER REPAIR TECHNICIAN [facility] 09/20/2024 8:57 PM SPRINKLER REPAIR TECHNICIAN Geovanny Gallardo MD LABORATORY Final Res ult [facility] [address] [place] [address], * Critical Care (09/20/2024 7:05 PM SPRINKLER REPAIR TECHNICIAN) Genaro Kumar MD - 09/20/2024 7:05 PM SPRINKLER REPAIR TECHNICIAN Genaro Cordoba MD 09/20/2024 7:39 PM Critical [...] from another provider in my specialty: no Genaro Cordoba MD PROCEDURE/MINOR SURGICAL ORDERAB LES Final Result * CTA CHEST PE PROTOCOL (09/20/2024 4:37 PM SPRINKLER REPAIR TECHNICIAN) Anatomical Region Laterality Modality Chest Computed Tomogra phy 09/20/2024 5:01 PM SPRINKLER REPAIR TECHNICIAN Impressions 09/20/2024 5:04 PM SPRINKLER REPAIR TECHNICIAN IMPRESSION: 1) No CT evidence for acute pulmonary embolism. 2. Mild changes of emphysema in both upper lobes. 3. Scattered ill-defined areas of groundglass and tree-in-bud opacity suspicious for acute viral pneumonitis. No airspace consolidation or pleural effusion. Ordered By: GENARO CORDOBA Interpreted By: Stanislav Gloria MD, 09/20/2024 5:01 PM Narrative 09/20/2024 5:04 PM SPRINKLER REPAIR TECHNICIAN [address] [place] [address] Examination: CTA CHEST PE PROTOCOL Exam time: [...] Procedure Note Stanislav Gloria MD - 09/20/[address] [place] [address] Examination: CTA CHEST PE PROTOCOL Exam time: [...] By: Stanislav Gloria MD, 09/20/2024 5:01 PM Genaro Cordoba MD CT Final Result * (ABNORMAL) D-DIMER, QUANTITATIVE (09/20/2024 2:47 PM SPRINKLER REPAIR TECHNICIAN) [facility] D-DIMER 819(H) 0 - 500 ng{FEU}/mL 09/20/2024 3:38 PM SPRINKLER REPAIR TECHNICIAN [facility] Comment: D-Dimer values less [...] additional false negative findings. 09/20/2024 2:47 PM SPRINKLER REPAIR TECHNICIAN us Genaro Cordoba MD LABORATORY Final Result [facility] [address] [place] [address], * CORONAVIRUS (COVID-19) ANTIGEN (09/20/2024 2:40 PM SPRINKLER REPAIR TECHNICIAN) [facility] CORONAVIRUS ANTIGEN IA NEGATIVE NEGATIVE 09/20/2024 3:48 PM SPRINKLER REPAIR TECHNICIAN [facility] Comment: NEGATIVE RESULTS DO [...] LABORATORIES. SPECIMEN TYPE NASAL 09/20/2024 2:52 PM SPRINKLER REPAIR TECHNICIAN [facility] NASAL NASAL STRUCTURE / Unknown 09/20/2024 2:40 PM SPRINKLER REPAIR TECHNICIAN us Genaro Cordoba MD MICROBIOLOGY - GENERAL ORDERABLE S Final Result Performing Organization Address [facility] Co de Phone Number [facility] [address] [place] [address], [place] [phone] * (ABNORMAL) INFLUENZA A & B (09/20/2024 2:40 PM SPRINKLER REPAIR TECHNICIAN) SPECIMEN TYPE (INFLUENZA) NASAL 09/20/2024 2:52 PM SPRINKLER REPAIR TECHNICIAN [facility] INFLUENZA A POSITIVE(A) NEGATIVE 09/20/2024 3:34 PM SPRINKLER REPAIR TECHNICIAN [facility] Comment: CALLED TO CECILY SARGENT [phone] 09/20/24 AFW READ BACK AND VERIFIED INFLUENZA B NEGATIVE NEGATIVE 09/20/2024 3:34 PM SPRINKLER REPAIR TECHNICIAN [facility] NASAL STRUCTURE / Unknown 09/20/2024 2:40 PM SPRINKLER REPAIR TECHNICIAN us Genaro Cordoba MD MICROBIOLOGY - GENERAL ORDERABLE S Final Result Performing Organization Address City/[facility] Co de Phone Number [facility] [address] [place] [id number], [place] [phone] * CT CHEST WO CON (08/25/2024 10:37 AM SPRINKLER REPAIR TECHNICIAN) Anatomical Region Laterality Modality Chest Computed Tomogra phy 08/30/2024 12:0 1 PM SPRINKLER REPAIR TECHNICIAN Impressions 08/30/2024 12:10 PM SPRINKLER REPAIR TECHNICIAN IMPRESSION: 1. Favored benign pulmonary findings as described. Given the smoking history, low-dose screening chest CT in one year is suggested. 2. Coronary artery disease. 3. Centrilobular emphysema. Ordered By: NOMAN LINTON Interpreted By: Gustabo Mabry MD, 08/30/2024 12:01 PM Narrative 08/30/2024 12:10 PM SPRINKLER REPAIR TECHNICIAN [place] [id number] [facility] [place] [id number] Examination: CT of the chest without contrast. [...] although the findings overall remain objectively nonspecific. 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 [...] favored although the findings overall remain objectivelynonspecific. 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
--- OUTSIDE RECORDS SUMMARY | 2024-11-02 13:35 | XMS_ITS ---
Author Organization [facility] Address [address] [place] [address] Phone Care Team Providers Care Media Planner / Buyer Name Role Phone Unavailable Unavailable Unavailable Plan of Treatment No Plan of Treatment Recorded Assessments Includes: Assessments for all patient encounters No Assessments Recorded Medical Equipment - Implanted Devices Includes: Current and historical Devices No Medical Equipment Recorded Medications Administered Includes: Administered Medications in patient's chart No Administered Medications Recorded Results Includes: Results from 11/03/2023 through 11/02/2024 No Results Recorded For Specified Dates History [...]
--- OUTSIDE RECORDS SUMMARY | 2024-11-02 13:35 | XMS_ITS | Encounter Summary ---
Author Organization [facility] Address Formerly [facility] [place] [address] Care Team Providers Care Toy Assembler Wood Name Role Phone Stanislaw Murphy MD Primary Care Provider [phone] Maribel De La Rosa MD Unavailable Reason for Visit * Reason Onset Date Comments Called To Cancel Office Appt. 09/21/2024 Encounter Details Date Type Department Care Team (Late st Contact Info) Description 09/21/2024 Telephone [facility] [address] [place] [address] Yomaira Powell MD [address] [place] [address] Called To Cancel Office Appt. Social History Tobacco Use Types Packs/Day Years Used Date Smoking Tobacco: Every Day Cigarettes 1 42 Smokeless Tobacco: Never Alcohol Use Standard Drinks/Week Comments No 0 (1 standard drink = 0.6 oz pur e alcohol) [facility] Utilities Answer Date Recorded In the past 12 months has [employer], gas, oil, or water [employer] threatened to shut off services in [...] any time in the past 12 m [facility], were you homeless or living in a prison (including now)? 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 Not on file Not on [...] Alejandro in ICU at 09/22 appt canceled ARY SUBSTANCE ABUSE COUNSELOR documented in this encounter Plan of Treatment Upcoming Encounters Date Type Department Care Team (Late Contact Info) Description 11/10/2024 2:40 PM CDT Office Visit [facility] [place] [address] [place] [address] Yomaira Powell MD [address] [place] [address] 11/28/2024 12:00 PM CDT Office Visit [facility] [address] [place] [address] Maribel De La Rosa MD [address] [place] [address] documented as of this encounter Visit Diagnoses Not on filedocumented in this encounter Additional Health Concerns Infection Onset Date Last Indicated Resolved Time Influenza - Seasonal Comment:[facility] notified of ICU influenza admission 09/20/2024 09/21/2024 10/01/2024 12:33 AM PRIMARY SUBSTANCE ABUSE COUNSELOR Assessment Noted Time PHQ-9 Depression Total Score: 2 03/20/20 21 11:14 AM CDT documented as of this encounter Care Teams Toy Assembler Wood Relationship Specialty Start Date End Date Stanislaw Murphy MD [address] [place] [id number] PCP - General INTERNAL MEDICINE 09/04/23 Maribel De La Rosa MD [address] [place] [address] Consulting Physician CARDIOVASCULAR DISEASE 01/31/24 documented as of this encounter
--- OUTSIDE RECORDS SUMMARY | 2024-11-02 13:35 | XMS_ITS | Encounter Summary ---
Author Organization [facility] Address [facility] [place] [address] Care Team Providers Care Meat Clerk Name Role Phone Stanislaw Murphy MD Primary Care Provider [phone] Maribel De La Rosa MD Unavailable Encounter Details Date Type Department Care Team (Late st Contact Info) Description 09/27/2024 Hospital Follow-up Call [facility] Cardiovascular Care Unit [address] [place] [address] Bri Moreno RN Social History Tobacco Use Types Packs/Day Years Used Date Smoking Tobacco: Every Day Cigarettes 1 42 Smokeless Tobacco: Never Alcohol Use Standard Drinks/Week Comments No 0 (1 standard drink = 0.6 oz pur e alcohol) [facility] Utilities Answer Date Recorded In the past 12 months has e [employer], gas, oil, or water [employer] threatened to shut off services in your [...] time in the past 12 m [facility], were you homeless or living in a prison (including now)? 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 Not on file Not on [...] Assessment Author Status No 09/21/2024 6:43 AM DIRECTOR PEOPLESOFT Quan Marsh RN Active * Because of a physical, mental, or emotional condition, do you have difficulty doing errands alone such as visiting a doctor's office or shopping? Answer Date of Assessment Author Status No 09/21/2024 6:43 AM DIRECTOR PEOPLESOFT Quan Marsh RN Active documented as of this encounter Mental Status * Because of a physical, mental, or emotional condition, do you have serious difficulty concentrating, remembering, or making decisions? Answer Entry Date Author Status No 09/21/2024 6:43 AM DIRECTOR PEOPLESOFT Quan Marsh RN Active documented in this encounter Plan of Treatment Upcoming Encounters Date Type Department Care Team (Late st Contact Info) Description 11/10/2024 2:40 PM CDT Office Visit [facility] [place] [address] [place] [address] [place] [address] [place] [address] 11/28/2024 12:00 PM CDT Office Visit [facility] [address] [place] [address] Maribel De La Rosa MD [address] [place] [address] documented as of this encounter Visit Diagnoses Not on filedocumented in this encounter Additional Health Concerns Infection Onset Date Last Indicated Resolved Time Influenza - Seasonal Comment:[facility] notified of ICU influenza admission 09/20/2024 09/21/2024 10/01/2024 12:33 AM DIRECTOR PEOPLESOFT Assessment Noted Time PHQ-9 Depression Total Score: 2 03/20/20 21 11:14 AM CDT documented as of this encounter Care Teams Meat Clerk Relationship Specialty Start Date End Date Stanislaw Murphy MD [address] [place] [address] PCP - General INTERNAL MEDICINE 09/04/23 Maribel De La Rosa MD [address] [place] [address] Consulting Physician CARDIOVASCULAR DISEASE 01/31/24 documented as of this encounter
--- OUTSIDE RECORDS SUMMARY | 2024-11-02 13:35 | XMS_ITS ---
Care Plan - [facility] Created on: November 02, 2024 JENNIFER ROCHA : 1960 Sex: Male Author Organization [facility] Address [address] [place] [address] Phone Care Team Providers Care Picture Hanger Name Role Phone Unavailable Unavailable Unavailable
[2024-11-02 18:11] LABS: Magnesium 1.8 mg/dL (1.8-2.4); NT Pro B Type Natriuretic Pept 121 pg/mL (0-125)
== END 2024-11-02 12:13 | disposition home or self-care (01) ==
PROVIDERS: PCP Internal Medicine; Visit Provider Internal Medicine
DX: E83.42 Hypomagnesemia (principal); I50.9 Heart failure, unspecified; D64.9 Anemia, unspecified; J44.9 Chronic obstructive pulmonary disease, unspecified
CPT/HCPCS: 36415; 36600; 80053; 82805; 83735; 83880; 85025

== ENCOUNTER 2024-12-02 13:17 | Outpatient (CLI) | payer MEDICARE, SELFPAY ==
--- OUTSIDE RECORDS SUMMARY | 2024-12-02 13:22 | XMS_ITS | Continuity of Care Document ---
Author Organization Located within [facility] Address [address] [place] [address] [place] [address] Phone Care Team Providers Care Road Advisor Name Role Phone Martinez OD, Stephane Unavailable Unavailable Procedures Procedure Date Eye Exam & Treatment Refraction Eye Exam & Treatment Refraction Advance Directives Directive Yes / No Effective Date File Name No Information Encounters Encounter Description Practice Location Reason(s) For Visit Diagnoses Date Provider Providers Copied on Encounter [facility], [address] [place] [address] [address], [place], [place], [id number], tel:[phone] [facility] No Information [phone] Martinez OD Stephane. [address], [place], [place], [facility], [place]. tel:[phone] [facility], [address] [place] [address] [address], [place], [place], [id number], tel:[phone] [facility] No Information 0-200 9 Martinez OD Stephane. [address] , [address], [place], [address], [place]. tel:[phone] Family History Family Member Type Diagnosis Age At Onset No Information Payers Payer name Insurance type Covered libertarian ID Authorerickaa rohan(s) Medicaid [facility] [id number] Social History Type Description Quantity Date Captured [...]
--- OUTSIDE RECORDS SUMMARY | 2024-12-02 13:22 | XMS_ITS | Encounter Summary ---
Author Organization [facility] Address [facility] [place] [address] Care Team Providers Care Aligning Inspector Name Role Phone Stanislaw Murphy MD Primary Care Provider [phone] Maribel De La Rosa MD Unavailable Reason for Visit * Reason Onset Date Comments Called To Cancel Office Appt. 09/21/2024 Encounter Details Date Type Department Care Team (Late st Contact Info) Description 09/21/2024 Telephone [facility] Medical Group [facility] [address] [place] [address] Yomaira Powell MD [address] [place] [address] Called To Cancel Office Appt. Social History Tobacco Use Types Packs/Day Years Used Date Smoking Tobacco: Every Day Cigarettes 1 42 Smokeless Tobacco: Never Alcohol Use Standard Drinks/Week Comments No 0 (1 standard drink = 0.6 oz pur e alcohol) [facility] Utilities Answer Date Recorded In the past 12 months has [employer], gas, oil, or water [employer] threatened to shut off services in [...] any time in the past 12 m [facility], were you homeless or living in a fci (including now)? 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 Not on file Not [...] 6:43 AM Quan Minor RN Active * Question Answer Date of Assessment Author Status Are you deaf or do you have serious difficulty hearing No 09/21/2024 6:43 AM Quan Minor RN Active Are you blind or do you have serious difficulty seeing, even when wearing glasses? No 09/21/2024 6:43 AM Quan Minor RN Active * Calculated C-SSRS Risk Score (Lifetime/Recent) Answer Date of Assessment Author Status No Risk Indicated 09/21/2024 6:44 AM Campos Minor RN Active * [place] Suicide Severity Rating Scale (Screener/Recent Self-Report) Question Answer Date of Assessment Author Status 1. Wish to be (Past 1 Month) No 09/21/2024 6:44 AM Quan Minor RN Active 2. Non-Specific Active Suicidal Thoughts (Past 1 Month) No 09/21/2024 6:44 AM Quan Minor RN Active 6. Suicidal Behavior (Lifetime) No 09/21/2024 6:44 AM INSIDE SALES COORDINATOR Quan Marsh, GAURAV Active documented as of this encounter Mental Status * Question Answer Entry Date Author Status Because of a physical, mental, or emotional condition, do you have serious difficulty concentrating, remembering, or making decisions? No 09/21/2024 6:43 AM INSIDE SALES COORDINATOR Quan Marsh RN A ctive * Because of a physical, mental, or emotional condition, do you have serious difficulty concentrating, remembering, or making decisions? Answer Entry Date Author Status No 09/21/2024 6:43 AM INSIDE SALES COORDINATOR Quan Marsh RN Active documented in this encounter Progress Notes * Page Bello - 09/21/2024 3:39 PM CST Caller name: Jenna Call details: Alejandro in ICU at 09/22 appt canceled DE SALES COORDINATOR documented in this encounter Plan of Treatment Upcoming Encounters Date Type Department Care Team (Late st Contact Info) Description 12/05/2024 10:45 AM CDT Hospital Encounter [facility] [address] [place] [place] [address] Maribel De La Rosa MD [address] [place] [address] 12/05/2024 11:00 AM CDT [facility] [address] [place] [address] Maribel De La Rosa MD [address] [place] [address] 12/06/2024 12:30 PM CDT Appointment [facility] [address] [place] [address] Tevin Farah MD [address] [facility] [address] [address] 12/06/2024 1:00 PM CDT Appointment [facility] [address] [place] [address] Non-Staff, Provider documented as of this encounter Visit Diagnoses Not on filedocumented in this encounter Additional Health Concerns Infection Onset Date Last Indicated Resolved Time Influenza - Seasonal Comment:[facility] notified of ICU influenza admission 09/20/2024 09/21/2024 10/01/2024 12:33 AM INSIDE SALES COORDINATOR Assessment Noted Time PHQ-9 Depression Total Score: 2 03/20/20 21 11:14 AM CDT documented as of this encounter Care Teams Aligning Inspector Relationship Specialty Start Date End Date Stanislaw Murphy MD [address] [place] [address] PCP - General INTERNAL MEDICINE 09/04/23 Maribel De La Rosa MD [address] [place] [address] Consulting Physician CARDIOVASCULAR DISEASE 01/31/24 documented as of this encounter
--- OUTSIDE RECORDS SUMMARY | 2024-12-02 13:22 | XMS_ITS | Clinical Summary ---
Author Organization [facility] Address [address] [place] [address] Care Team Providers Care Freight Hustler Name Role Phone Stanislaw Murphy MD Primary Care Provider [phone] Maribel De La Rosa MD Unavailable Allergies [...] 3 021 Active Nebulizer MiscIndications :Centrilobular emphysema ([facility]) Please provide patient with nebulizer [...] nebulizer solutionIndicat ions:Pulmonary emphysema, unspecified emphysema type ([facility]) Inhale 1 vial every 6 hours for wheezing 300 mL 2 023 Active montelukast (SINGULAIR) 10 MG tabletIndicatio ns:Moderate persistent asthma without complication (HHS/HCC) Take 1 tablet (10 mg total) by mouth nightly at bedtime. 90 tablet 3 024 Active dilTIAZem CD (CARDIZEM CD) 180 MG 24 hr capsule Take 1 capsule (180 mg total) by mouth every morning. 90 capsule 2 024 Active nitroglycerin (NITROSTAT) 0.[address] 1 tablet (0.4 mg total) under the tongue every 5 (five) minutes as needed for Chest Pain. 25 tablet 024 Active glimepiride (AMARYL) 2 MG tablet Take 1 tablet (2 mg total) by mouth every morning before breakfast. Active OXYGEN CONCENTRATOR CANTIL, DME,Indications :Acute hypoxic respiratory failure ([facility]),Asthma -COPD overlap syndrome ([facility]),COPD (chronic obstructive pulmonary disease) ([facility]) 1 Device by Nasal route [...] Anxiety disorder 60 tablet 025 Active [facility],Indications :Unsteady Gait 1 Device by Does not apply route as needed. Indications: Unsteady Walk 4 wheel walker with seat 1 Device 025 2025 Active MAGNESIUM OR Take 1 capsule by mouth 2 (two) times daily. Active POTASSIUM OR Take 1 tablet by mouth daily. Active vitamin D3 (CHOLECALCIFERO L) 1.25 mg capsule Take 1 capsule (1.25 mg total) by mouth once a week. Active albuterol sulfate HFA 108 (90 Base) MCG/ACT inhalerIndicati ons:Centrilobul ar emphysema ([facility]) TAKE 2 PUFFS BY MOUTH EVERY 4 HOURS NEEDED 18 g 3 025 Active SYMBICORT 160-4.5 MCG/ACT inhalerIndicati ons:Chronic obstructive pulmonary disease, unspecified COPD type ([facility]) Inhale 2 puffs into the lungs 2 (two) times daily. 6 g 6 025 Active SYMBICORT 160-4.5 MCG/ACT inhalerIndicati ons:Chronic obstructive pulmonary disease, unspecified COPD type ([facility]) INHALE 2 PUFFS INTO THE LUNGS TWICE A DAY 6 g 6 024 2024 Discontinued(R eorder) Umeclidinium [place] (INCRUSE ELLIPTA) 62.5 MCG/ACT AEROSOL POWDER, BREATH ACTIVATEDIndica tions:Pulmonary emphysema, unspecified emphysema type ([facility]) Inhale 1 puff into the lungs daily. 30 each 6 024 2024 Discontinued albuterol sulfate HFA 108 (90 Base) MCG/ACT inhalerIndicati ons:Centrilobul ar emphysema ([facility]) Inhale 2 puffs into the lungs every 4 (four) hours as needed. 8 g 025 2024 Discontinued Active Problems Problem Noted Date Diagnosed Date Acute respiratory failure ([facility]) 08/28 Acute hypoxic respiratory failure ([facility]) 09/21/2024 Lung nodule 04/08/2023 Sleep related hypoxia 06/16/2022 Smoker 03/22/2021 Snoring 03/22/2021 Marijuana smoker 08/23/2019 Cigarette nicotine dependenc e with nicotine-induced disorder 08/23/2019 Low back pain 05/07/2017 Anxiety disorder 05/05/2017 Depression 05/05/2017 Hiatal hernia 05/05/2017 Hip pain, left 05/05/2017 Diabetes mellitus, type 2 ([facility]) 04/26 Asthma-COPD overlap syndrome ([facility]) 1 Hypercholesteremia 05/05/2017 Hypertension 05/05/2017 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 11/23/2016 Mixed hyperlipidemia 11/23/2016 PVD (peripheral vascular disease) HTN (hypertension) Restless leg syndrome Shortness of breath Chest pain Centrilobular emphysema ([facility]) Diabetes ([facility]) COPD (chronic obstructive pu lmonary disease) ([facility]) Claudication Resolved Problems Problem Noted Date Diagnosed Date Resolved Date Sleep apnea 05/05/2017 06/16/2022 Shortness of breath 11/23/2016 11/10/19 18 Vasovagal syncope 11/23/2016 11/09/2017 Encounter for preventive health examination 01/10/2016 04/06/2020 Broken ankle 02/11/2019 Encounters Date Type Department Care Team Description 11/28/2024 Orders Only [facility] [address] [place] [address] Maribel De La Rosa MD 11/28/2024 Telephone [facility] [address] [place] [address] Maribel De La Rosa MD Reschedule 11/25/2024 Telephone [facility] [address] [place] [address] Maribel De La Rosa MD Appointment Reminder 11/24/2024 [facility] [address] [place] [address] Yomaira Powell MD 11/21/2024 [facility] [address] [place] [address] Maribel De La Rosa MD 11/10/2024 2:40 PM CDT Office Visit [facility] [address] [place] [address] Yomaira Powell MD Follow Up (Pt is here for a follow up on emphysema and lung nodule. ); Shortness Of Breath (Pt states he has sob mostly with exertion.) 11/10/2024 Travel 10/18/2024 [facility] [address] [place] [phone] Yomaira Powell MD Appointment Request 10/11/2024 Orders Only [facility] [address] [phone] Paige Banuelos MA 10/04/2024 10:00 AM CDT Home Care Visit [facility] Home [facility] [address] [place] [address] Rebecca Luke RN SN NON ADMIT SOC 09/28/2024 8:00 AM COAT CUTTER Home Care Visit [facility] [address] [place] [address] Kathrine Caban RN SN NON ADMIT SOC 09/27/2024 Hospital Follow-up Call [facility] [address] [place] [address] Bri Moreno RN 09/26/2024 10:15 AM COAT CUTTER Home Care Visit [facility] [address] [place] [address] Katelyn Gilman LPN /[facility] ORIENTATION VISIT 09/26/2024 10:15 AM COAT CUTTER Home Care Visit [facility] [address] [place] [address] Bri Ham LPN [facility]IA[facility] TELEPHONE CALL 09/21/2024 6:36 AM COAT CUTTER - 09/26/2024 1:53 PM COAT CUTTER Hospital Encounter [facility] [address] [place] [address] Vilma Garcia MD Hindi, Zakaria, MD Kakani, Elijah V, MD Wali, Neehal, MD Mahmoud, Anas, MD Bhandari, Amit, MD Discharge Disposition: Home or Self Care (Routine Discharge) 09/21/2024 [facility]phone [facility] [address] [place] [phone] Yomaira Powell MD Called To Cancel Office Appt. 09/20/2024 2:26 PM COAT CUTTER - 09/21/2024 5:35 AM COAT CUTTER Emergency [facility] [address] [address] Genaro Cordoba MD Phemister, Dominic L, MD Shortness Of Breath Discharge Disposition: Transfer to Acute Care Hospital 09/20/2024 Travel from Last 3 Months Immunizations Immunization Administration Dates Next Due Fluzone 6 Months+ [...] Packs/Day Years Used Date Smoking Tobacco: Former Cigarettes 1 42 Q uit: 09/20/2024 Smokeless Tobacco: Never Tobacco Cessation:Counseling Given: Not Answered Alcohol Use Standard Drinks/Week Comments No 0 (1 standard drink = 0.6 oz pur e alcohol) [facility] Utilities Answer Date Recorded In the past 12 months has e [email or web address], gas, oil, or water [employer] threatened to shut off services in your [...] any time in the past 12 m [facility], were you homeless or living in a fpc (including now)? 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 Not on file Not on file No t on file Last Filed Vital Signs Vital Sign Reading Time Taken Comments Blood Pressure 100/55 11/10/2024 2:56 PM CDT Pulse 74 11/10/2024 2:56 PM CDT Temperature 36.5 C (97.7 F) 09/26/2024 7:52 AM COAT CUTTER Respiratory Rate 12 11/10/2024 2:56 PM CDT Oxygen Saturation 97% 11/10/2024 2:56 PM CDT Inhaled Oxygen Concentration - - Weight 68.4 kg (150 lb 12.8 oz) 11/10/2024 2:56 PM CDT Height 180.3 cm (5' 11 ) 11/10/2024 2:56 PM CDT Body Mass Index 21.03 11/10/2024 2:56 PM CDT Plan of Treatment Upcoming Encounters Date Type Department Care Team (Late st Contact Info) Description 12/05/2024 10:45 AM CDT Hospital Encounter [facility] [address] [place] [address] [place] [address] Maribel De La Rosa MD [address] [place] [address] 12/05/2024 11:00 AM CDT Office Visit [facility] [address] [address] Maribel De La Rosa MD [address] [place] [address] 12/06/2024 12:30 PM CDT Appointment [facility] Diagnostic Imaging [address] [place] [address] Tevin Farah MD [address] [facility] [address] [place] [address] 12/06/2024 1:00 PM CDT Appointment [facility] MRI [address] [place] [address] Non-Staff, Provider Health Maintenance Due Date Last Done Comments ASCVD Statin 1959 Kidney Health Evaluation 1959 Diabetes: Retinopathy Eye Exam 1977 Hepatitis C 1977 DTaP, Tdap and Td Vaccines (1 - Tdap) 1978 Pneumococcal Vaccine: 50+ Years (1 of 2 - PCV) 1978 Zoster Vaccines (1 of 2) 2009 ASCVD LDL 11/05/2018 11/05/2017 Lipid Panel 11/05/2018 11/05/2017 RSV Immunization or 60+ Years (1 - Risk 60-74 years 1-dose series) 2019 COVID-19 Vaccine (3 - season) 2024 12/04/2020, 11/06/2020 PHQ-2 (Physician [place]) 07/27/2024 Hemoglobin A1C 03/21/2025 09/21/2024, 04/27, 02/15/2022, [...] this topic Medical Devices Implanted Type Area Electronic Sensing Equipment Assembler Device Identifier Shelf Expiration Date Model / Serial / Lot Stimulator Lead Implant( 2 Leads)-12/10/19 18 Implanted:Qty: 2 on 12/09/2017 Lead Implant Spine Thoracic [employer] [id number] / / Stimulator Implant- 018 Implanted:Qty: 1 on 12/09/2017 Stimulator Implant Back [id number] / [id number] / Description:MR CONDITIONAL A T 1.5 T ONLY, NEED REMOTE TO CHECK FULL BODY ELIGIBLE AND TURN OFF STIMULATION, FOLLOW SCAN CONDITIONS IN MOST RECENT DEVICE TECH MANUAL Procedures Procedure Name Priority Date/Time Associated Diagnosis Comments POCT GLUCOSE - BRYAN DOCKED DEVICE Routine 09/26/2024 10:57 AM COAT CUTTER POCT GLUCOSE - BRYAN DOCKED DEVICE Routine 09/26/2024 5:51 AM COAT CUTTER XR CHEST PORTABLE STAT 09/26/2024 5:3 8 AM COAT CUTTER BLOOD GAS, ARTERIAL LAB STAT 09/26/2024 5:10 AM COAT CUTTER POCT GLUCOSE - BRYAN DOCKED DEVICE Routine 09/25/2024 8:42 PM COAT CUTTER POCT GLUCOSE - BRYAN DOCKED DEVICE Routine 09/25/2024 3:37 PM COAT CUTTER POCT GLUCOSE - BRAYN DOCKED DEVICE Routine 09/25/2024 10:47 AM COAT CUTTER PHOSPHORUS, INORGANIC PHOSPHATE Routine 09/25/2024 5:18 AM COAT CUTTER MAGNESIUM Routine 09/25/2024 5:18 AM COAT CUTTER COMPREHENSIVE METABOLIC PANEL Routine 09/25/2024 5:18 AM COAT CUTTER CBC W/DIFF AUTOMATED Routine 09/25/2024 5:18 AM COAT CUTTER POCT GLUCOSE - BRYAN DOCKED DEVICE Routine 09/25/2024 4:59 AM COAT CUTTER POCT GLUCOSE - BRYAN DOCKED DEVICE Routine 09/24/2024 8:44 PM COAT CUTTER POCT GLUCOSE - BRYAN DOCKED DEVICE Routine 09/24/2024 4:53 PM COAT CUTTER POCT GLUCOSE - BRYAN DOCKED DEVICE Routine 09/24/2024 11:04 AM COAT CUTTER CBC W/DIFF AUTOMATED Routine 09/24/2024 5:21 AM COAT CUTTER PHOSPHORUS, INORGANIC PHOSPHATE Routine 09/24/2024 5:21 AM COAT CUTTER MAGNESIUM Routine 09/24/2024 5:21 AM COAT CUTTER BASIC METABOLIC PANEL Routine 09/24/2024 5:21 AM COAT CUTTER POCT GLUCOSE - BRYAN DOCKED DEVICE Routine 09/24/2024 5:12 AM COAT CUTTER POCT GLUCOSE - BRYAN DOCKED DEVICE Routine 09/23/2024 8:59 PM COAT CUTTER POCT GLUCOSE - BRYAN DOCKED DEVICE Routine 09/23/2024 4:35 PM COAT CUTTER POCT GLUCOSE - BRYAN DOCKED DEVICE Routine 09/23/2024 10:36 AM COAT CUTTER HOME O2 EVAL Routine 09/23/2024 9:57 AM COAT CUTTER POCT GLUCOSE - BRYAN DOCKED DEVICE Routine 09/23/2024 8:29 AM COAT CUTTER CBC W/DIFF AUTOMATED Routine 09/23/2024 2:56 AM COAT CUTTER PHOSPHORUS, INORGANIC PHOSPHATE Routine 09/23/2024 2:56 AM COAT CUTTER MAGNESIUM Routine 09/23/2024 2:56 AM COAT CUTTER BASIC METABOLIC PANEL Routine 09/23/2024 2:56 AM COAT CUTTER POCT GLUCOSE - BRYAN DOCKED DEVICE Routine 09/22/2024 4:54 PM COAT CUTTER POCT GLUCOSE - BRYAN DOCKED DEVICE Routine 09/22/2024 12:30 PM COAT CUTTER POCT GLUCOSE - BRYAN DOCKED DEVICE Routine 09/22/2024 6:52 AM COAT CUTTER CBC W/DIFF AUTOMATED Routine 09/22/2024 5:30 AM COAT CUTTER PHOSPHORUS, INORGANIC PHOSPHATE Routine 09/22/2024 5:30 AM COAT CUTTER MAGNESIUM Routine 09/22/2024 5:30 AM COAT CUTTER BASIC METABOLIC PANEL Routine 09/22/2024 5:30 AM COAT CUTTER POCT GLUCOSE - BRYAN DOCKED DEVICE Routine 09/21/2024 8:05 PM COAT CUTTER POCT GLUCOSE - BRYAN DOCKED DEVICE Routine 09/21/2024 5:56 PM COAT CUTTER POCT GLUCOSE - BRYAN DOCKED DEVICE Routine 09/21/2024 4:02 PM COAT CUTTER POCT ACUTE VENOUS PANEL Routine 09/21/2024 1:22 PM COAT CUTTER POCT GLUCOSE - BRYAN DOCKED DEVICE Routine 09/21/2024 11:54 AM COAT CUTTER USE ECHOCARDIOGRAM Routine 09/21/2024 9: 53 AM COAT CUTTER ECG 12-LEAD Routine 09/21/2024 8:47 AM COAT CUTTER POCT ACUTE VENOUS PANEL Routine 09/21/2024 7:53 AM COAT CUTTER POCT GLUCOSE - BRYAN DOCKED DEVICE Routine 09/21/2024 7:49 AM COAT CUTTER CULTURE, BACTERIA, BLOOD Routine 09/21/2024 7:40 AM COAT CUTTER MRSA SCREENING Nurse Collected Priority 09/21/2024 7:40 AM COAT CUTTER LACTIC ACID W REFLEX (SEPSIS) STAT 09/21/2024 7:40 AM COAT CUTTER PROCALCITONIN (PCT) Routine 09/21/2024 7 :40 AM COAT CUTTER AMMONIA Routine 09/21/2024 7:40 AM COAT CUTTER CORTISOL, TOTAL Routine 09/21/2024 7:40 AM COAT CUTTER RESPIRATORY PCR PANEL 2 Nurse Collected Priority 09/21/2024 7:29 AM COAT CUTTER HEMOGLOBIN, GLYCOSYLATED Routine 09/21/2024 7:17 AM COAT CUTTER PROTHROMBIN TIME, VENOUS Routine 09/21/2024 7:17 AM COAT CUTTER CBC W/DIFF AUTOMATED Routine 09/21/2024 7:17 AM COAT CUTTER LIPASE Routine 09/21/2024 7:17 AM COAT CUTTER THYROID STIM HORMONE TSH Routine 09/21/2024 7:17 AM COAT CUTTER PHOSPHORUS, INORGANIC PHOSPHATE Routine 09/21/2024 7:17 AM COAT CUTTER LACTIC ACID Routine 09/21/2024 7:17 AM COAT CUTTER MAGNESIUM Routine 09/21/2024 7:17 AM COAT CUTTER TROPONIN, QUANT Routine 09/21/2024 7:17 AM COAT CUTTER COMPREHENSIVE METABOLIC PANEL Routine 09/21/2024 7:17 AM COAT CUTTER BLOOD GAS, VENOUS STAT 09/20/2024 8:5 7 PM COAT CUTTER CRITICAL CARE Routine 09/20/2024 7:05 PM COAT CUTTER BLOOD GAS, VENOUS STAT 09/20/2024 5:4 6 PM COAT CUTTER CTA CHEST PE PROTOCOL STAT 09/20/2024 4:37 PM COAT CUTTER BLOOD GAS, VENOUS STAT 09/20/2024 4:2 5 PM COAT CUTTER ECG 12-LEAD Routine 09/20/2024 2:59 PM COAT CUTTER BLOOD GAS, VENOUS STAT 09/20/2024 2:4 7 PM COAT CUTTER D-DIMER, QUANTITATIVE STAT 09/20/2024 2:47 PM COAT CUTTER LACTIC ACID W REFLEX (SEPSIS) STAT 09/20/2024 2:47 PM COAT CUTTER TROPONIN, QUANT STAT 09/20/2024 2:47 PM COAT CUTTER COMPREHENSIVE METABOLIC PANEL STAT 09/20/2024 2:47 PM COAT CUTTER CBC W/DIFF AUTOMATED STAT 09/20/2024 2:47 PM COAT CUTTER XR CHEST PORTABLE STAT 09/20/2024 2:4 5 PM COAT CUTTER CORONAVIRUS (COVID-19) ANTIGEN STAT 09/20/2024 2:40 PM COAT CUTTER INFLUENZA A & B STAT 09/20/2024 2:[address] CHEST WO CON Routine 08/25/2024 10:37 AM COAT CUTTER Lung nodule COLONOSCOPY 02/15/2021 8:22 AM CDT LIPID PANEL (OUTSIDE LAB) Routine 11/05/2017 from Last 3 Months or Most Recently Relevant to Health Maintenance Results * (ABNORMAL) POCT glucose (09/26/2024 10:57 AM COAT CUTTER) Only the most recent of22 resultswithin the time period is included. GLUCOSE POC 172(H) 70 - 109 09/26/2024 11:11 AM COAT CUTTER [facility] 09/26/2024 10:5 7 AM COAT CUTTER Ben Medellin MD POCT ORDERABLES - DEVICE Final Result [facility] [address] [place] [address], [id number] * XR CHEST PORTABLE (09/26/2024 5:38 AM COAT CUTTER) Only the most recent of2 resultswithin the time period is included. Anatomical Region Laterality Modality Chest Radiographic Nisreen ging 09/26/2024 5:56 AM COAT CUTTER Impressions 09/26/2024 5:59 AM COAT CUTTER IMPRESSION:===== No acute findings. Resolution of bilateral lower lobe interstitial prominence.. Referred By: GEOVANNY GALLARDO Interpreted By: Devin Ferraro MD, 09/26/2024 5:56 AM Narrative 09/26/2024 5:59 AM COAT CUTTER [place] [address] EXAMINATION: CHEST RADIOGRAPH SINGLE VIEW Exam date/time: 09/26/2024 5:36 AM Reason For Exam: SOB Comparison: 09/20/2024 Technique: Upright AP view of the chest Findings: Heart size normal. Proximal airways unremarkable. No suspicious pulmonary lesion, pneumothorax, or pleural effusion. Emphysematous change. Thoracic Intrathecal electrodes. Partially visualized cervical spine hardware. Calcified granulomas. ===== Procedure Note Devin Ferraro MD - 09/26/[address] [address] EXAMINATION: CHEST RADIOGRAPH SINGLE VIEW Exam date/time: [...] (ABNORMAL) ARTERIAL BLOOD GAS (09/26/2024 5:10 AM COAT CUTTER) PH ARTERIAL 7.45 7.35 - 7.45 09/26/2024 5:22 AM COAT CUTTER [facility] PCO2 46.5(H) 35.0 - 45.0 MM[facility] 09/26/2024 5:22 AM COAT CUTTER [facility] PO2 67.8(L) 83.0 - 108.0 MMHG 09/26/2024 5:22 AM COAT CUTTER [facility] BICARB ARTERIAL 31.8(H) 22 - 26 MMOL/L 09/26/2024 5:22 AM COAT CUTTER [facility] TOTAL CO2 ARTERIAL 33.3(H) 23 - 27 MMOL/L 09/26/2024 5:22 AM [facility] BE/BASE EXCESS 7.0(H) 0 - 2 MMOL/L 09/26/2024 5:22 AM [facility] O2 Saturation 94(L) 95 - 98 % 09/26/2024 5:22 AM [facility] BRANDEN TEST POSITIVE 09/26/2024 5:10 AM [facility] OXYGEN STATUS 3 LT 09/26/2024 5:10 AM [facility] DRAW SITE ARTERIAL LEFT BRACHIAL 09/26/2024 5:10 AM [facility] 09/26/2024 5:10 AM COAT CUTTER Ben Medellin MD LABORATORY Final Result [facility] [address] [place] [id number], [id number] * (ABNORMAL) COMPREHENSIVE METABOLIC PANEL (09/25/2024 5:18 AM COAT CUTTER) Only the most recent of3 resultswithin the time period is included. SODIUM S/P/B 137 136 - 145 MMOL/L 09/25/2024 5:55 AM [facility] POTASSIUM S/P/B 3.5 3.5 - 5.1 MMOL/L 09/25/2024 5:55 AM [facility] CHLORIDE S/P/B 103 97 - 115 MMOL/L 09/25/2024 5:55 AM [facility] CO2 30.8 21.0 - 32.0 MMOL/L 09/25/2024 5:55 AM [facility] GLUCOSE 114(H) 74 - 106 MG/DL 09/25/2024 5:55 AM [facility] BUN 19(H) 7 - 18 MG/DL 09/25/2024 5:55 AM [facility] CREATININE S/P/B 0.51(L) 0.70 - 1.30 MG/DL 09/25/2024 5:55 AM [facility] CALCIUM S/P/B 9.5 8.5 - 10.1 MG/DL 09/25/2024 5:55 AM [facility] BILIRUBIN TOTAL S/P/B 0.3 0.2 - 1.0 MG/DL 09/25/2024 5:55 AM [facility] ALKALINE PHOSPHATASE S/P/B 82 45 - 115 U/L 09/25/2024 5:55 AM [facility] AST 7(L) 15 - 37 U/L 09/25/2024 5:55 AM [facility] ALT 21 16 - 61 U/L 09/25/2024 5:55 AM [facility] TOTAL PROTEIN S/P/B 6.7 6.4 - 8.2 G/DL 09/25/2024 5:55 AM [facility] ALBUMIN S/P/B 3.0(L) 3.4 - 5.0 G/DL 09/25/2024 5:55 AM [facility] ANION GAP 3.2 2.0 - 10.0 MMOL/L 09/25/2024 5:55 AM [facility] OSMOLALITY (CALC) 287 MOSM/KG 025 5:55 AM [facility] Comment:REFERENCE RANGE NOT ESTABLISHED GFR ESTIMATE >90 >90 ML/MIN/1. 73 M2 09/25/2024 5:55 AM [facility] GFR NOTES GFR REFERENCE S: 09/25/2024 5:55 AM [facility] Comment: THE ESTIMATED GFR IS [...] FAILURE: <15 ml/min/1.73 m2 09/25/2024 5:18 AM COAT CUTTER Nina Gamez MD LABORATORY Final Result [facility] [address] [place] [address], [id number] * (ABNORMAL) CBC W/DIFF AUTOMATED (09/25/2024 5:18 AM COAT CUTTER) Only the most recent of6 resultswithin the time period is included. WBC 6.65 4.00 - 10.80 x10'3/uL 09/25/2024 5:38 AM [facility] RBC 4.99 4.50 - 6.10 x10'6/uL 09/25/2024 5:38 AM [facility] HGB 14.7 12.0 - 16.0 G/DL 09/25/2024 5:38 AM [facility] HCT 43.4 37.0 - 52.0 % 09/25/2024 5:38 AM [facility] MCV 87.0 78.0 - 100.0 FL 09/25/2024 5:38 AM [facility] MCH 29.5 27.0 - 31.0 PG 09/25/2024 5:38 AM [facility] MCHC 33.9 33.0 - 36.0 G/DL 09/25/2024 5:38 AM [facility] RDW 13.9 11.5 - 14.5 % 09/25/2024 5:38 AM [facility] PLT 216 150 - 350 x10'3/uL 09/25/2024 5:38 AM [facility] MPV 9.3 7.4 - 10.4 FL 09/25/2024 5:38 AM [facility] DIFFERENTIAL TYPE MANUAL DIFFERENTIAL 09/25/2024 6:09 AM [facility] NRBC % 0.0 % 09/25/2024 6:09 AM [facility] SEG NEUTROPHILS 59 % 6:09 AM [facility] LYMPHOCYTES 30 % 09/25/2024 6:09 AM [facility] MONOCYTES 10 % 09/25/2024 6:09 AM [facility] EOSINOPHILS 0 % 09/25/2024 6:09 AM [facility] BASOPHILS 0 % 09/25/2024 6:09 AM [facility] METAMYELOCYTES 1 % 09/25/2024 6:09 AM [facility] ABS. NEUTROPHILS 3.92 1.60 - 8.30 x10'3/uL 09/25/2024 6:09 AM [facility] ABS. LYMPHOCYTES 2.00 0.80 - 4.70 x10'3/uL 09/25/2024 6:09 AM [facility] ABS. MONOCYTES 0.67 0.00 - 1.50 x10'3/uL 09/25/2024 6:09 AM [facility] ABS. EOSINOPHILS 0.00 0.00 - 0.40 x10'3/uL 09/25/2024 6:09 AM [facility] ABS. BASOPHILS 0.00 0.00 - 0.20 x10'3/uL 09/25/2024 6:09 AM [facility] ABS. METAMYELOCYTES 0.07(H) 0.00 x10'3/uL 09/25/2024 6:09 AM [facility] ABS. NUCLEATED RBC'S 0.00 0.00 - 0.01 x10'3/uL 09/25/2024 6:09 AM [facility] RBC MORPHOLOGY SLIDE REVIEWED 2024 6:09 AM [facility] POIKLO SLIGHT 09/25/2024 6:09 AM [facility] OVALOCYTES PRESENT 09/25/2024 6:09 AM [facility] ACANTHOCYTES PRESENT 09/25/2024 6:09 AM [facility] PLT EST. ADEQUATE 09/25/2024 6:09 AM [facility] WBC MORPHOLOGY SEE NOTE 09/25/2024 6:09 AM [facility] Comment:Reactive lymphocytes present. 09/25/2024 5:18 AM [facility] us Nina Gamez MD LABORATORY Final Result Performing Organization Address [facility] [employer] de Phone Number [facility] [address] [place] [address], [id number] * PHOSPHORUS, INORGANIC PHOSPHATE (09/25/2024 5:18 AM [facility]) Only the most recent of5 resultswithin the time period is included. PHOSPHORUS 2.8 2.5 - 4.9 MG/DL 09/25/2024 5:55 AM [facility] 09/25/2024 5:18 AM [facility] us Nina Gamez MD LABORATORY Final Result Performing Organization Address [facility] [employer] de Phone Number [facility] [address] [place] [id number], [id number] * MAGNESIUM (09/25/2024 5:18 AM [facility]) Only the most recent of5 resultswithin the time period is included. MAGNESIUM 1.8 1.6 - 2.6 MG/DL 09/25/2024 5:55 AM [facility] 09/25/2024 5:18 AM [facility] Nina Gamez MD LABORATORY Final Result [facility] [address] [place] [address], [id number] * (ABNORMAL) BASIC METABOLIC PANEL (09/24/2024 5:21 AM COAT CUTTER) Only the most recent of3 resultswithin the time period is included. SODIUM S/P/B 138 136 - 145 MMOL/L 09/24/2024 6:39 AM [facility] POTASSIUM S/P/B 3.8 3.5 - 5.1 MMOL/L 09/24/2024 6:39 AM [facility] CHLORIDE S/P/B 102 97 - 115 MMOL/L 09/24/2024 6:39 AM [facility] CO2 32.8(H) 21.0 - 32.0 MMOL/L 09/24/2024 6:39 AM [facility] GLUCOSE 127(H) 74 - 106 MG/DL 09/24/2024 6:39 AM [facility] BUN 19(H) 7 - 18 MG/DL 09/24/2024 6:39 AM [facility] CREATININE S/P/B 0.53(L) 0.70 - 1.30 MG/DL 09/24/2024 6:39 AM [facility] CALCIUM S/P/B 9.5 8.5 - 10.1 MG/DL 09/24/2024 6:39 AM [facility] ANION GAP 3.2 2.0 - 10.0 MMOL/L 09/24/2024 6:39 AM [facility] OSMOLALITY (CALC) 290 MOSM/KG 025 6:39 AM [facility] Comment:REFERENCE RANGE NOT ESTABLISHED GFR ESTIMATE >90 >90 ML/MIN/1. 73 M2 09/24/2024 6:39 AM COAT CUTTER [facility] GFR NOTES GFR REFERENCE S: 09/24/2024 6:39 AM COAT CUTTER [facility] Comment: THE ESTIMATED GFR IS [...] FAILURE: <15 ml/min/1.73 m2 09/24/2024 5:21 AM COAT CUTTER Domenica Mcgovern MD LABORATORY Final Result [facility] [address] [place] [address], [phone] * (ABNORMAL) POCT ACUTE VENOUS PANEL (09/21/2024 1:22 PM COAT CUTTER) Only the most recent of2 resultswithin the time period is included. SODIUM WHOLE BLOOD 144 138 - 146 mmol/L 09/21/2024 1:23 PM COAT CUTTER [facility] POTASSIUM WHOLE BLOOD 2.9(L) 3.5 - 4.9 mmol/L 09/21/2024 1:23 PM COAT CUTTER [facility] CA IONIZED WH BLOOD 1.01(L) 1.12 - 1.32 mmol/L 09/21/2024 1:23 PM COAT CUTTER [facility] POC PH VENOUS 7.376 7.31 - 7.41 09/21/2024 1:23 PM COAT CUTTER [facility] POC PCO2 VENOUS 37.4(L) 41.0 - 51.0 MMHG 09/21/2024 1:23 PM COAT CUTTER [facility] POC PO2 VENOUS 40 25 - 40 MMHG 09/21/2024 1:23 PM COAT CUTTER [facility] POC HCO3 VENOUS 21.9(L) 23 - 28 MMOL/L 09/21/2024 1:23 PM COAT CUTTER [facility] POC TCO2 VENOUS 23(L) 24 - 29 MMOL/L 09/21/2024 1:23 PM COAT CUTTER [facility] POC BASE DEFICIT VENOUS 3(H) 0 - 2 MMOL/L 09/21/2024 1:23 PM COAT CUTTER [facility] POC HEMATOCRIT 32(L) 38 - 51 % 09/21/2024 1:23 PM COAT CUTTER [facility] TIME TEST WAS PERFORMED: 1322 09/21/2024 1:23 PM COAT CUTTER [facility] 09/21/2024 1:22 PM COAT CUTTER us Domenica Mcgovern MD POCT ORDERABLES - DEVICE Final Result Performing Organization Address City/State/RUST Co de Phone Number [facility] [address] [place] [address], [phone] * USE ECHOCARDIOGRAM (09/21/2024 9:53 AM COAT CUTTER) Anatomical Region Laterality Modality Cardiac Echocardiogram 09/21/2024 7:26 AM COAT CUTTER Narrative 09/21/2024 10:42 PM COAT CUTTER Echocardiography Report Pat.Name: JENNIFER WATTERS Pat.ID: [id number] St.Date: 09/21/2024 Refer.: [id number] MEKA Rowe EWDPROV EWDPROV Exam Time: 7:26:00 AM Study Type:ECHO WITH CARDIAC DOPPLER COMP Height: 71 in Weight: 155 lb BSA: 1.89 m2 Age: 2 1960,64Y Sex: M BP: 121/75 HR: 87 bpm Sonogrphr: Marie Sahu RDCS Pat. Stat.:Inpatient Room: [place] [address] CPT - 4: 79103 Reason for Study:Hypoxia Procedures: 2D, M-mode, Doppler, [...] Mass 2D Value 98.6 g LV Mass [id number] Value 52.2 g/m2 2D Left Ventricle LVIDd [...] 09/21/2024 Echocardiography Report Pat.Name: JENNIFER WATTERS Pat.ID: [id number] St.Date: 09/21/2024 Refer.: [id number] MEKA Rowe EWDPROV EWDPROV Exam Time: 7:26:00 AM Study Type:ECHO WITH CARDIAC DOPPLER COMP Height: 71 in Weight: 155 lb BSA: 1.89 m2 Age: 2 1960,64Y Sex: M BP: 121/75 HR: 87 bpm Sonogrphr: Marie Sahu [facility] Pat. Stat.:Inpatient Room: [place] [address] CPT - 4: 04794 Reason for Study:Hypoxia Procedures: 2D, M-mode, Doppler, [...] Mass 2D Value 98.6 g LV Mass [id number] Value 52.2 g/m2 2D Left Ventricle LVIDd [...] * ECG 12 lead (09/21/2024 8:47 AM COAT CUTTER) Only the most recent of2 resultswithin the time period is included. 09/21/2024 8:47 AM COAT CUTTER Narrative [facility] - 09/21/2024 7:55 PM COAT CUTTER [place] [address] [place] [address] Test Date: 2024-09-21 Pat Name: JENNIFER WATTERS Department: 1 Room: [place] [address] Gender: Male [employer] In[employer]: Rakesh : 1960 Requested By: VILMA GARCIA Order Number: [id number] Reading : Darius Palacios Measurements Intervals Dodson Rate: 88 P: 87 NE: 151 QRS: 54 QRSD: 90 T: 74 QT: 355 QTc: 430 Interpretive Statements SINUS RHYTHM POSSIBLE LEFT ATRIAL ENLARGEMENT [-0.1mV P-WAVE IN V1/V2] POSSIBLE RIGHT VENTRICULAR CONDUCTION DELAY [RSR (QR) IN V1/V2] CUTTER Procedure Note Darius Palacios MD - 09/21/2024 [place] [address] [place] [address] Test Date: 2024-09-21 Pat Name: JENNIFER WATTERS Department: 1 Room: [place] [address] Gender: Male [employer] Instructor: Rakesh : 1960 Requested By: VILMA GARCIA Order Number: [id number] Reading MD: Darius Palacios Measurements Intervals [place]son Rate: 88 P: 87 NE: 151 QRS: 54 QRSD: 90 T: 74 QT: 355 QTc: 430 Interpretive Statements SINUS RHYTHM POSSIBLE LEFT ATRIAL ENLARGEMENT [-0.1mV P-WAVE IN V1/V2] POSSIBLE RIGHT VENTRICULAR CONDUCTION DELAY [RSR (QR) IN V1/V2] CUTTER us Vilma Garcia MD ECG ORDERABLES Final Result [facility] * (ABNORMAL) LACTIC ACID W REFLEX (SEPSIS) (09/21/2024 7:40 AM COAT CUTTER) Only the most recent of2 resultswithin the time period is included. LACTIC ACID VENOUS 2.1(H) 0.4 - 2.0 MMOL/L 09/21/2024 8:31 AM COAT CUTTER [facility] 09/21/2024 7:40 AM COAT CUTTER us Vilma Garcia MD LABORATORY Final Result Performing Organization Address [facility]/RUST Co de Phone Number [facility] [address] [place] [address], [phone] * PROCALCITONIN (PCT) (09/21/2024 7:40 AM COAT CUTTER) PROCALCITONIN 0.07 0.00 - 0.49 NG/ML 09/21/2024 10:14 AM COAT CUTTER [facility] 09/21/2024 7:40 AM COAT CUTTER us Vilma Garcia MD LABORATORY Final Result Performing Organization Address [facility] de Phone Number [facility] [address] [place] [address], [phone] * MRSA SCREENING (09/21/2024 7:40 AM COAT CUTTER) SPECIMEN SOURCE RESPIRATORY, NOSE 09/21/2024 7:30 AM COAT CUTTER [facility] MRSA BY PCR NASAL METHICILLIN RESISTANT STAPH AUREUS NOT DETECTED METHICILLIN RESISTANT STAPH AUREUS NOT DETECTED 09/22/2024 10:27 AM COAT CUTTER [facility] NASAL STRUCTURE / Unknown 09/21/2024 7:40 AM COAT CUTTER us Vilma Garcia MD MICROBIOLOGY - GENERAL ORDERABL ES Final Result Performing Organization Address [facility] Co de Phone Number [facility] [address] [place] [address], [id number] * CORTISOL, TOTAL (09/21/2024 7:40 AM COAT CUTTER) CORTISOL 7.6 mcg/dL 09/21/2024 8:58 AM COAT CUTTER [facility] Comment: A.M. SPECIMENS: 5.3 TO 22.5 mcg/dL P.M. SPECIMENS: 3.4 TO 16.8 mcg/dL ASSAY PERFORMED BY CHEMILUMINESCENCE METHODOLOGY USING [employer]. PATIENT RESULTS DETERMINED BY ASSAYS USING DIFFERENT MANUFACTURERS FOR METHODS MAY NOT BE COMPARABLE. 09/21/2024 7:40 AM COAT CUTTER us Vilma Garcia MD LABORATORY Final Result Performing Organization Address [facility] de Phone Number [facility] [address] [place] [address], [phone] * CULTURE, BACTERIA, BLOOD (09/21/2024 7:40 AM COAT CUTTER) SPEC DESCRIPTION BLOOD 09/21/2024 6:40 AM COAT CUTTER [facility] SPECIAL REQUESTS NO SPECIAL REQUEST 09/21/2024 6:40 AM COAT CUTTER [facility] CULTURE RESULT NO GROWTH 5 DAYS 09/26/2024 4:38 PM COAT CUTTER [facility] BLOOD SPECIMEN OBTAINED FOR BLOOD CULTURE / Unknown 09/21/2024 7:40 AM COAT CUTTER 09/21/2024 8:02 AM COAT CUTTER us Vilma Garcia MD MICROBIOLOGY - GENERAL ORDERABL ES Final Result Performing Organization Address [facility] de Phone Number [facility] [address] [place] [address], [phone] * AMMONIA (09/21/2024 7:40 AM COAT CUTTER) AMMONIA 23 11 - 32 UMOL/L 09/21/2024 8:29 AM COAT CUTTER [facility] 09/21/2024 7:40 AM COAT CUTTER us Vilma Garcia MD LABORATORY Final Result Performing Organization Address [facility] Co de Phone Number [facility] [address] [place] [address], [phone] * (ABNORMAL) BIOFIRE PCR UPPER RESPIRATORY PROFILE (RESPIRATORY PCR PANEL 2) (09/21/2024 7:29 AM COAT CUTTER) ADENOVIRUS PCR (RESP) NOT DETECTED NOT DETECTED 09/21/2024 9:08 AM [facility] CORONAVIRUS 229E PCR (RESP) NOT DETECTED NOT DETECTED 09/21/2024 9:08 AM [facility] CORONAVIRUS HKU1 PCR (RESP) NOT DETECTED NOT DETECTED 09/21/2024 9:08 AM [facility] CORONAVIRUS NL63 PCR (RESP) NOT DETECTED NOT DETECTED 09/21/2024 9:08 AM [facility] CORONAVIRUS OC43 PCR (RESP) NOT DETECTED NOT DETECTED 09/21/2024 9:08 AM [facility] METAPNEUMOVIRUS PCR (RESP) NOT DETECTED NOT DETECTED 09/21/2024 9:08 AM [facility] RHINOVIRUS/ENTEROV IRUS PCR (RESP) NOT DETECTED NOT DETECTED 09/21/2024 9:08 AM [facility] INFLUENZA A PCR (RESP) DETECTED(AA ) NOT DETECTED 09/21/2024 9:08 AM [facility] INFLUENZA A/H1-2009 PCR (RESP) DETECTED(AA ) NOT DETECTED 09/21/2024 9:08 AM [facility] Comment: RESULTS PHONED TO AND READ BACK BY: WANDA ASIF [id number] 09/21/24 EKG INFLUENZA B PCR (RESP) NOT DETECTED NOT DETECTED 09/21/2024 9:08 AM [facility] PARAINFLUENZA 1 PCR (RESP) NOT DETECTED NOT DETECTED 09/21/2024 9:08 AM [facility] PARAINFLUENZA 2 PCR (RESP) NOT DETECTED NOT DETECTED 09/21/2024 9:08 AM [facility] PARAINFLUENZA 3 PCR (RESP) NOT DETECTED NOT DETECTED 09/21/2024 9:08 AM COAT CUTTER [facility] PARAINFLUENZA 4 PCR (RESP) NOT DETECTED NOT DETECTED 09/21/2024 9:08 AM COAT CUTTER [facility] RSV PCR (RESP) NOT DETECTED NOT DETECTED 09/21/2024 9:08 AM COAT CUTTER [facility] B PARAPERTUSIS PCR (RESP) NOT DETECTED NOT DETECTED 09/21/2024 9:08 AM COAT CUTTER [facility] BORDETELLA PERTUSSIS PCR (RESP) NOT DETECTED NOT DETECTED 09/21/2024 9:08 AM COAT CUTTER [facility] CHLAMYDOPHILA PNEUMONIAE PCR (RESP) NOT DETECTED NOT DETECTED 09/21/2024 9:08 AM COAT CUTTER [facility] MYCOPLASMA PNEUMONIAE PCR (RESP) NOT DETECTED NOT DETECTED 09/21/2024 9:08 AM COAT CUTTER [facility] CORONAVIRUS SARS COV 2 PCR (RESP) NOT DETECTED NOT DETECTED 09/21/2024 9:08 AM COAT CUTTER [facility] NASOPHARYNGEAL SWAB / Unknown 09/21/2024 7:29 AM COAT CUTTER Vilma Garcia MD MICROBIOLOGY - GENERAL ORDERABL ES Final Result Performing Organization Address [facility] Co de Phone Number [facility] [address] [place] [address], [place] [phone] * (ABNORMAL) HEMOGLOBIN, GLYCOSYLATED (09/21/2024 7:17 AM COAT CUTTER) HGB A1C 6.6(H) <5.7 % 09/21/2024 8:15 AM COAT CUTTER [facility] ESTIMATED AVG GLUCOSE 143(H) 74 - 114 MG/DL 09/21/2024 8:15 AM COAT CUTTER [facility] 09/21/2024 7:17 AM COAT CUTTER us Vilma Garcia MD LABORATORY Final Result Performing Organization Address City/[facility] Co de Phone Number [facility] [address] [place] [address], [phone] * PROTHROMBIN TIME, VENOUS (09/21/2024 7:17 AM COAT CUTTER) PROTIME 10.8 9.4 - 12.5 SEC 09/21/2024 7:54 AM COAT CUTTER [facility] INR 0.9 0.8 - 1.1 09/21/2024 7:54 AM COAT CUTTER [facility] 09/21/2024 7:17 AM COAT CUTTER Vilma Garcia MD LABORATORY Final Result [facility] [address] [place] [address], [phone] * (ABNORMAL) LACTIC ACID - SINGLE (09/21/2024 7:17 AM COAT CUTTER) [facility] LACTIC ACID VENOUS 2.4(H) 0.4 - 2.0 MMOL/L 09/21/2024 8:03 AM COAT CUTTER [facility] Comment: AN ORDER FOR A REPEAT LACTIC ACID TEST IS REQUIRED WITHIN 6 HOURS OF DIAGNOSIS ON A PATIENT WITH SEVERE SEPSIS. 09/21/2024 7:17 AM COAT CUTTER Vilma Garcia MD LABORATORY Final Result [facility] [address] [place] [address], [place] [phone] * TROPONIN, QUANT (09/21/2024 7:17 AM COAT CUTTER) Only the most recent of2 resultswithin the time period is included. [facility] TROPONIN I HIGH SENSITIVITY 7 0 - 78 ng/L 09/21/2024 8:09 AM COAT CUTTER [facility] 09/21/2024 7:17 AM COAT CUTTER Vilma Garcia MD LABORATORY Final Result Performing Organization Address [facility] de Phone Number [facility] [address] [place] [address], [phone] * (ABNORMAL) THYROID STIM HORMONE, TSH (09/21/2024 7:17 AM COAT CUTTER) TSH 0.273(L) 0.358 - 3.740 uIU/ML 09/21/2024 8:09 AM COAT CUTTER [facility] Comment: ASSAY PERFORMED BY CHEMILUMINESCENCE METHODOLOGY USING [employer]. PATIENT RESULTS DETERMINED BY ASSAYS USING DIFFERENT MANUFACTURERS FOR METHODS MAY NOT BE COMPARABLE. 09/21/2024 7:17 AM COAT CUTTER Vilma Garcia MD LABORATORY Final Result Performing Organization Address [facility] de Phone Number [facility] [address] [place] [address], [phone] * LIPASE (09/21/2024 7:17 AM COAT CUTTER) Pathologist [facility] LIPASE 15 13 - 75 UNITS/L 09/21/2024 8:09 AM COAT CUTTER [facility] 09/21/2024 7:17 AM COAT CUTTER Vilma Garcia MD LABORATORY Final Result Performing Organization Address [facility] de Phone Number [facility] [address] [place] [address], [phone] * (ABNORMAL) Blood gas, venous (09/20/2024 8:57 PM COAT CUTTER) Only the most recent of4 resultswithin the time period is included. PH VENOUS 7.36 7.32 - 7.43 09/20/2024 9:04 PM COAT CUTTER [facility] PCO2 VENOUS 56.0 MMHG 09/20/2024 9:04 PM COAT CUTTER [facility] Comment:NO REFERENCE RANGE H BEEN ESTABLISHED PO2 VENOUS 61.0 MM HG 09/20/2024 9:04 PM COAT CUTTER [facility] Comment:NO REFERENCE RANGE H BEEN ESTABLISHED TOTAL CO2 VENOUS 33.3(H) 22.0 - 26.0 MMOL/L 09/20/2024 9:04 PM COAT CUTTER [facility] BASE EXCESS VENOUS 4.6 MMOL/L 09/20/2024 9:04 PM [facility] Comment:NO REFERENCE RANGE H BEEN ESTABLISHED O2 SAT VENOUS 90 % 09/20/2024 9:04 PM COAT CUTTER [facility] Comment:NO REFERENCE RANGE H BEEN ESTABLISHED BICARB VENOUS 31.6(H) 22.0 - 29.0 MMOL/L 09/20/2024 9:04 PM [facility] O2 ADMIN VENOUS 35% 8:57 PM [facility] 09/20/2024 8:57 PM COAT CUTTER Geovanny Gallardo MD LABORATORY Final Res ult [facility] [address] [place] [address], * Critical Care (09/20/2024 7:05 PM COAT CUTTER) Narrative Genaro Cordoba MD - 09/20/2024 7:05 PM COAT CUTTER Genaro Cordoba MD 09/20/2024 7:39 PM Critical [...] CTA CHEST PE PROTOCOL (09/20/2024 4:37 PM COAT CUTTER) Anatomical Region Laterality Modality Chest Computed Tomogra phy 09/20/2024 5:01 PM COAT CUTTER Impressions 09/20/2024 5:04 PM COAT CUTTER IMPRESSION: 1) No CT evidence for acute pulmonary embolism. 2. Mild changes of emphysema in both upper lobes. 3. Scattered ill-defined areas of groundglass and tree-in-bud opacity suspicious for acute viral pneumonitis. No airspace consolidation or pleural effusion. Ordered By: GENARO CORDOBA Interpreted By: Stanislav Gloria MD, 09/20/2024 5:01 PM Narrative 09/20/2024 5:04 PM COAT CUTTER [address] [place] [address] Examination: CTA CHEST PE PROTOCOL Exam time: [...] Procedure Note Stanislav Gloria MD - 09/20/2024 [facility] [address] [place] [address] Examination: CTA CHEST PE PROTOCOL Exam time: [...] * (ABNORMAL) D-DIMER, QUANTITATIVE (09/20/2024 2:47 PM COAT CUTTER) D-DIMER 819(H) 0 - 500 ng{FEU}/mL 09/20/2024 3:38 PM COAT CUTTER [facility] Comment: D-Dimer values less than [...] additional false negative findings. 09/20/2024 2:47 PM COAT CUTTER us Genaro Cordoba MD LABORATORY Final Result Performing Organization Address [facility] Co de Phone Number [facility] [address] [place] [address], * CORONAVIRUS (COVID-19) ANTIGEN (09/20/2024 2:40 PM COAT CUTTER) CORONAVIRUS ANTIGEN IA NEGATIVE NEGATIVE 09/20/2024 3:48 PM COAT CUTTER [facility] Comment: NEGATIVE RESULTS DO NOT [...] LABORATORIES. SPECIMEN TYPE NASAL 09/20/2024 2:52 PM COAT CUTTER [facility] NASAL NASAL STRUCTURE / Unknown 09/20/2024 2:40 PM COAT CUTTER us Genaro Cordoba MD MICROBIOLOGY - GENERAL ORDERABLE S Final Result Performing Organization Address [facility] de Phone Number [facility] [address] [place] [phone], * (ABNORMAL) INFLUENZA A & B (09/20/2024 2:40 PM COAT CUTTER) SPECIMEN TYPE (INFLUENZA) NASAL 09/20/2024 2:52 PM COAT CUTTER [facility] INFLUENZA A POSITIVE(A) NEGATIVE 09/20/2024 3:34 PM COAT CUTTER [facility] Comment: CALLED TO CECILY SARGENT 1534 09/20/24 AFW READ BACK AND VERIFIED INFLUENZA B NEGATIVE NEGATIVE 09/20/2024 3:34 PM COAT CUTTER [facility] NASAL STRUCTURE / Unknown 09/20/2024 2:40 PM COAT CUTTER us Genaro Cordoba MD MICROBIOLOGY - GENERAL ORDERABLE S Final Result [facility] [address] [place] [address], * CT CHEST WO CON (08/25/2024 10:37 AM COAT CUTTER) Anatomical Region Laterality Modality Chest Computed Tomogra phy 08/30/2024 12:0 1 PM COAT CUTTER Impressions 08/30/2024 12:10 PM COAT CUTTER IMPRESSION: 1. Favored benign pulmonary findings as described. Given the smoking history, low-dose screening chest CT in one year is suggested. 2. Coronary artery disease. 3. Centrilobular emphysema. Ordered By: NOMAN LINTON Interpreted By: Gustabo Mabry MD, 08/30/2024 12:01 PM Narrative 08/30/2024 12:10 PM COAT CUTTER [place] [id number] [place] [address] Examination: CT of the chest without contrast. [...] although the findings overall remain objectively nonspecific. Hearing Impaired Teacher findings are annotated on the lung window [...] Procedure Note Gustabo Mabry MD - 08/30/2024 [facility] [address] [place] [address] Examination: CT of the chest without contrast. [...] favored although the findings overall remain objectivelynonspecific. Hearing Impaired Teacher findings are annotated on the lung windowseries [...] 6:39 AM 09/26/2024 3:59 PM Care Teams Freight Hustler Relationship Specialty Start Date End Date Stanislaw Murphy MD [address] [place] [address] PCP - General INTERNAL MEDICINE 09/04/23 Maribel De La Rosa MD [address] [place] [address] Consulting Physician CARDIOVASCULAR DISEASE 01/31/24
--- OUTSIDE RECORDS SUMMARY | 2024-12-02 13:22 | XMS_ITS | Encounter Summary ---
Author Organization [facility] Address [facility] [place] [address] Care Team Providers Care Application Packager Name Role Phone Stanislaw Murphy MD Primary Care Provider [phone] Maribel De La Rosa MD Unavailable Encounter Details Date Type Department Care Team (Late st Contact Info) Description 09/27/2024 Hospital Follow-up Call [facility] Cardiovascular Care Unit [address] [place] [address] Bri Moreno RN Social History Tobacco Use Types Packs/Day Years Used Date Smoking Tobacco: Every Day Cigarettes 1 42 Smokeless Tobacco: Never Alcohol Use Standard Drinks/Week Comments No 0 (1 standard drink = 0.6 oz pur e alcohol) [facility] Utilities Answer Date Recorded In the past 12 months has e [employer], gas, oil, or water [employer] threatened to shut off services in your [...] any time in the past 12 m [facility], were you homeless or living in a snf (including now)? 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 Not on file Not [...] Description 12/05/2024 10:45 AM CDT Hospital Encounter [facility] [address] [place] [address] Maribel De La Rosa MD [address] [place] [address] 12/05/2024 11:00 AM CDT Office Visit [facility] [address] [place] [address] Maribel De La Rosa MD [address] [place] [address] 12/06/2024 12:30 PM CDT Appointment [facility] Diagnostic Imaging [address] [place] [address] Tevin Farah MD [address] [facility] [address] [place] [address] 12/06/2024 1:00 PM CDT Appointment [facility] MRI [address] [place] [address] Non-Staff, Provider documented as of this encounter Visit Diagnoses Not on filedocumented in this encounter Additional Health Concerns Infection Onset Date Last Indicated Resolved Time Influenza - Seasonal Comment:[facility] notified of ICU influenza admission 09/20/2024 09/21/2024 10/01/2024 12:33 AM ROOM SERVICE SUPERVISOR Assessment Noted Time PHQ-9 Depression Total Score: 2 03/20/20 21 11:14 AM CDT documented as of this encounter Care Teams Application Packager Relationship Specialty Start Date End Date Stanislaw Murphy MD [address] [place] [address] PCP - General INTERNAL MEDICINE 09/04/23 Maribel De La Rosa MD [address] [place] [address] Consulting Physician CARDIOVASCULAR DISEASE 01/31/24 documented as of this encounter
--- OUTSIDE RECORDS SUMMARY | 2024-12-02 13:22 | XMS_ITS | Encounter Summary ---
Author Organization [facility] Address [facility] [place] [address] Care Team Providers Care Underwriting Account Representative Name Role Phone Kingsley Saul Motta MD Primary Care Provider + [phone] Alejandro Red MD Unavailable [phone] María Saldaña APRN LINE DANCER-C Unavailable [phone] Dang Salgado NP Primary Care Provider + [phone] Isaac Nicholson MD Primary Care Provider + [phone] Stanislaw Murphy MD Primary Care Provider + [phone] Maribel De La Rosa MD Unavailable Encounter Details Date Type Department Care Team (Late st Contact Info) Description 01/01/2019 Abstract [facility] [address] [place] [address] , Generic Conversion, Social History Tobacco Use Types Packs/Day Years Used Date Smoking Tobacco: Some Days Cigarettes Smokeless Tobacco: Never Comments:quit 1 week ago is on chantix Alcohol Use Standard Drinks/Week Comments No 0 (1 standard drink = 0.6 oz pur e alcohol) Sex and Gender Information Value Date Recorded Sex Assigned at Male 08/25/2024 10:28 AM CORROSION ENGINEER Legal Sex Male 11:19 PM CDT Gender Identity Not on file Sexual Orientation Not on file 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 Not on file Not on file No t on file documented as of this encounter Plan of Treatment Upcoming Encounters Date Type Department Care Team (Late st Contact Info) Description 12/05/2024 10:45 AM CDT Hospital Encounter [facility] [address] [place] [address] Maribel De La Rosa MD [address] [place] [address] 12/05/2024 11:00 AM CDT Office Visit [facility] [address] [facility] [address] Maribel De La Rosa MD [address] [place] [address] 12/06/2024 12:[address] [facility] Diagnostic Imaging [address] [place] [address] Tevin Farah MD [address] [facility] [address] [address] 12/06/2024 1:00 PM CDT Appointment [facility] [address] [place] [address] Non-Staff, Provider documented as of this encounter Visit Diagnoses Not on filedocumented in this encounter Additional Health Concerns Infection Onset Date Last Indicated Resolved Time COVID-19 Rule Out 12/11/2020 12/11/2020 12/11/2020 7:42 PM CDT COVID-19 Rule Out 05/31/2021 05/31/2021 05/31/2021 5:58 PM CDT COVID-19 Rule Out 05/31/2021 05/31/2021 06/01/2021 8:07 PM CDT Respiratory Rule Out 09/20/2024 09/20/2024 025 3:34 PM CORROSION ENGINEER COVID-19 Rule Out 09/20/2024 09/20/2024 09/20/2024 3:48 PM CORROSION ENGINEER Influenza - Seasonal Comment:[facility] notified of ICU influenza admission 09/20/2024 09/21/2024 10/01/2024 12:33 AM CORROSION ENGINEER documented as of this encounter Care Teams Underwriting Account Representative Relationship Specialty Start Date End Date Saul Wynn MD [address] [place] [address] PCP - General FAMILY PRACTICE 09/10/16 05/24/20 Dang Salgado NP [address] [place] [address] PCP - General Nurse Practitioner Family 05/25/20 12/10/20 Isaac Nicholson MD [address] [place] [phone] PCP - General FAMILY PRACTICE 12/11/20 09/03/23 Stanislaw Murphy MD [address] [place] [address] PCP - General INTERNAL MEDICINE 09/04/23 Alejandro Red MD [address] [place] [phone] [place] Tanning Wheel Filler CARDIOVASCULAR DISEASE 09/10/16 01/30/24 María Saldaña, ESOL TEACHER ASSISTANT, LINE DANCER-C [address] [facility] [address] [place] [phone] [place] Tanning Wheel Filler CARDIOVASCULAR DISEASE 11/09/17 01/30/24 Maribel De La Rosa MD [address] [place] [address] Consulting Physician CARDIOVASCULAR DISEASE 01/31/24 documented as of this encounter
--- OUTSIDE RECORDS SUMMARY | 2024-12-02 13:22 | XMS_ITS | Encounter Summary ---
Author Organization [facility] Address [facility] [place] [address] Care Team Providers Care Line Service Attendant Name Role Phone Kingsley Saul Motta MD Primary Care Provider + [phone] Alejandro Red MD Unavailable [phone] María Saldaña APRN OIL AND GAS SPECIALIST-C Unavailable [phone] Dang Salgado NP Primary Care Provider [phone] Isaac Nicholson MD Primary Care Provider [phone] Stanislaw Murphy MD Primary Care Provider [phone] Maribel De La Rosa MD Unavailable Encounter Details Date Type Department Care Team (Late st Contact Info) Description 08/24/2014 Abstract [facility] AT [address] [address] Alejandro Red MD [address] [place] [address] Social History Tobacco Use Types Packs/Day Years Used Date Smoking Tobacco: Smoker, Current Status Unknown Alcohol Use Standard Drinks/Week Comments No 0 (1 standard drink = 0.6 oz pur e alcohol) Sex and Gender Information Value Date Recorded Sex Assigned at Male 08/25/2024 10:28 AM SPONGE CLIPPER Legal Sex Male 11:19 PM CDT Gender Identity Not on file Sexual Orientation Not on file 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 Not on file Not on file No t on file documented as of this encounter Plan of Treatment Upcoming Encounters Date Type Department Care Team (Late st Contact Info) Description 12/05/2024 10:45 AM CDT Hospital Encounter [facility] [address] [facility] [place] [address] Maribel De La Rosa MD [address] [place] [address] 12/05/2024 11:00 AM CDT Office Visit [facility] [address] [place] [address] Maribel De La Rosa MD [address] [place] [address] 12/06/2024 12:30 PM CDT Appointment [facility] Diagnostic Imaging [address] [place] [address] Tevin Farah MD [address] [facility] [address] [address] 12/06/2024 1:00 PM CDT Appointment [facility] MRI [address] [place] [address] Non-Staff, Provider documented as of this encounter Visit Diagnoses Not on filedocumented in this encounter Additional Health Concerns Infection Onset Date Last Indicated Resolved Time COVID-19 Rule Out 12/11/2020 12/11/2020 12/11/2020 7:42 PM CDT COVID-19 Rule Out 05/31/2021 05/31/2021 05/31/2021 5:58 PM CDT COVID-19 Rule Out 05/31/2021 05/31/2021 06/01/2021 8:07 PM CDT Respiratory Rule Out 09/20/2024 09/20/2024 025 3:34 PM SPONGE CLIPPER COVID-19 Rule Out 09/20/2024 09/20/2024 09/20/2024 3:48 PM SPONGE CLIPPER Influenza - Seasonal Comment:[facility] notified of ICU influenza admission 09/20/2024 09/21/2024 10/01/2024 12:33 AM SPONGE CLIPPER documented as of this encounter Care Teams Line Service Attendant Relationship Specialty Start Date End Date Saul Wynn MD [address] [place], [place] [phone] PCP - General FAMILY PRACTICE 09/10/16 05/24/20 Dang Salgado NP [address] [place] [address] PCP - General Nurse Practitioner Family 05/25/20 12/10/20 Isaac Nicholson MD [address] [place] [phone] PCP - General FAMILY PRACTICE 12/11/20 09/03/23 Stanislaw Murphy MD [address] [place] [address] PCP - General INTERNAL MEDICINE 09/04/23 Alejandro Red MD [address] [place] [phone] [place] Cost Accountant CARDIOVASCULAR DISEASE 09/10/16 01/30/24 María Saldaña APRN, OIL AND GAS SPECIALIST-C [address] [place] [address] [address] [place] [address] [place] Cost Accountant CARDIOVASCULAR DISEASE 11/09/17 01/30/24 Maribel De La Rosa MD [address] [place] [address] Consulting Physician CARDIOVASCULAR DISEASE 01/31/24 documented as of this encounter
--- OUTSIDE RECORDS SUMMARY | 2024-12-02 13:22 | XMS_ITS | Encounter Summary ---
Author Organization [facility] Address [facility] [place] [address] Care Team Providers Care Tourist Camp Attendant Name Role Phone Kingsley Saul Motta MD Primary Care Provider + [phone] Alejandro Red MD Unavailable [phone] María Saldaña APRN PSYCHIATRIC RN-C Unavailable [phone] Dang Salgado NP Primary Care Provider +- [phone] Isaac Nicholson MD Primary Care Provider + [phone] Stanislaw Murphy MD Primary Care Provider [phone] Maribel De La Rosa MD Unavailable Encounter Details Date Type Department Care Team (Late st Contact Info) Description 10/10/2017 Abstract [facility] CONVERSION [address] [place] [address] , Generic Conversion, Social History Tobacco Use Types Packs/Day Years Used Date Smoking Tobacco: Former Comments:quit 1 week ago is on chantix Alcohol Use Standard Drinks/Week Comments No 0 (1 standard drink = 0.6 oz pur e alcohol) Sex and Gender Information Value Date Recorded Sex Assigned at Male 08/25/2024 10:28 AM CREAM HAULER Legal Sex Male 11:19 PM CDT Gender Identity Not on file Sexual Orientation Not on file 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 Not on file Not on file No t on file documented as of this encounter Plan of Treatment Upcoming Encounters Date Type Department Care Team (Late st Contact Info) Description 12/05/2024 10:45 AM CDT Hospital Encounter [facility] [address] [facility] [place] [address] Maribel De La Rosa MD [address] [place] [address] 12/05/2024 11:00 AM CDT Office Visit [facility] [place] [phone] Maribel De La Rosa MD [address] [place] [address] 12/06/2024 12:30 PM CDT Appointment [facility] Diagnostic Imaging [address] [place] [address] Tevin Farah MD [address] [facility] [address] [address] 12/06/2024 1:00 PM CDT Appointment [facility] MRI [address] [place] [address] Non-Staff, Provider documented as of this encounter Visit Diagnoses Not on filedocumented in this encounter Additional Health Concerns Infection Onset Date Last Indicated Resolved Time COVID-19 Rule Out 12/11/2020 12/11/2020 12/11/2020 7:42 PM CDT COVID-19 Rule Out 05/31/2021 05/31/2021 05/31/2021 5:58 PM CDT COVID-19 Rule Out 05/31/2021 05/31/2021 06/01/2021 8:07 PM CDT Respiratory Rule Out 09/20/2024 09/20/2024 025 3:34 PM CREAM HAULER COVID-19 Rule Out 09/20/2024 09/20/2024 09/20/2024 3:48 PM CREAM HAULER Influenza - Seasonal Comment:[facility] notified of ICU influenza admission 09/20/2024 09/21/2024 10/01/2024 12:33 AM CREAM HAULER documented as of this encounter Care Teams Tourist Camp Attendant Relationship Specialty Start Date End Date Saul Wynn MD [address] [place] [address] PCP - General FAMILY PRACTICE 09/10/16 05/24/20 Dang Salgado NP [address] [place] [address] PCP - General Nurse Practitioner Family 05/25/20 12/10/20 Isaac Nicholson MD [address] [place] [address] PCP - General FAMILY PRACTICE 12/11/20 09/03/23 Stanislaw Murphy MD [address] [place] [address] PCP - General INTERNAL MEDICINE 09/04/23 Alejandro Red MD [address] [place] [phone] [place] Air Intelligence Officer CARDIOVASCULAR DISEASE 09/10/16 01/30/24 María Saldaña, LETICIA, PSYCHIATRIC RN-C [address] [facility] [address] [place] [address] [place] Air Intelligence Officer CARDIOVASCULAR DISEASE 11/09/17 01/30/24 Maribel De La Rosa MD [address] [place] [address] Consulting Physician CARDIOVASCULAR DISEASE 01/31/24 documented as of this encounter
--- OUTSIDE RECORDS SUMMARY | 2024-12-02 13:22 | XMS_ITS | Encounter Summary ---
Author Organization [facility] Address [facility] [place] [address] Care Team Providers Care Wrapper Counter Name Role Phone Stanislaw Murphy MD Primary Care Provider [phone] Maribel De La Rosa MD Unavailable Reason for Visit * Reason Onset Date Comments Advice 04/01/2024 Encounter Details Date Type Department Care Team (Late st Contact Info) Description 04/01/2024 Telephone [facility] [address] [place] [phone] Yomaira Powell MD [address] [place] [address] Advice Social History Tobacco Use [...] Sex Assigned at Male 08/25/2024 10:28 AM MEAT PROCESSOR Legal Sex Male 11:19 PM CDT Gender Identity Not on file Sexual Orientation Not on file 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 Patient states [...] Description 12/05/2024 10:45 AM CDT Hospital Encounter [facility] [address] [place] [address] [place] [address] Maribel De La Rosa MD [address] [place] [address] 12/05/2024 11:00 AM CDT [facility] [address] [place] [address] [place] [address] Maribel De La Rosa MD [address] [place] [address] 12/06/2024 12:30 PM CDT Appointment [facility] Diagnostic Imaging [address] [place] [address] Tevin Farah MD [address] [facility] [address] [place] [address] 12/06/2024 1:00 PM CDT Appointment [facility] MRI [address] [place] [address] Non-Staff, Provider documented as of this encounter Visit Diagnoses Not on filedocumented in this encounter Additional Health Concerns Infection Onset Date Last Indicated Resolved Time Respiratory Rule Out 09/20/2024 09/20/2024 025 3:34 PM MEAT PROCESSOR COVID-19 Rule Out 09/20/2024 09/20/2024 09/20/2024 3:48 PM MEAT PROCESSOR Influenza - Seasonal Comment:[facility] notified of ICU influenza admission 09/20/2024 09/21/2024 10/01/2024 12:33 AM MEAT PROCESSOR Assessment Noted Time PHQ-9 Depression Total Score: 2 03/20/20 21 11:14 AM CDT documented as of this encounter Care Teams Wrapper Counter Relationship Specialty Start Date End Date Stanislaw Murphy MD [address] [place] [address] PCP - General INTERNAL MEDICINE 09/04/23 Maribel De La Rosa MD [address] [place] [address] Consulting Physician CARDIOVASCULAR DISEASE 01/31/24 documented as of this encounter
[2024-12-02 13:31] LABS: Hematocrit 38.1 % (37.0-46.0); Hemoglobin 12.2 g/dL (12.4-15.3); Mean Corpuscular Hemoglobin 29.1 pg (27.0-31.0); Mean Corpuscular Volume 90.9 fL (78.0-102.0); Mean Platelet Volume 8.6 fl (8.7-11.0); Platelet Count Result 280 K/mm3 (150-420); Red Blood Count 4.19 M/mm3 (4.70-6.10); Red Cell Distribution Width 14.6 % (11.6-14.4); White Blood Count 8.7 K/mm3 (4.8-10.8)
[2024-12-02 14:04] LABS: Alanine Aminotransferase 12 U/L (6-50); Albumin Level 4.1 g/dL (3.5-5.1); Alkaline Phosphatase 108 U/L (38-126); Anion Gap 4 mmol/L (4-12); Aspartate Amino Transferase 19 U/L (17-59); Bilirubin,Total 0.4 mg/dL (0.2-1.3); Blood Urea Nitrogen 17 mg/dL (9-20); Calcium 9.1 mg/dL (8.4-10.2); Carbon Dioxide 28 mmol/L (22-30); Chloride 104 mmol/L (98-107); Estimated Glomerular Filt Rate > 60; Glucose 120 mg/dL (65-110); Magnesium 1.9 mg/dL (1.6-2.3); Osmolality Calculated 284 mOsm/kg (285-295); Sodium 136 mmol/L (137-145); Total Protein 6.8 g/dL (6.3-8.2)
== END 2024-12-02 13:18 | disposition home or self-care (01) ==
LOC: CHSLAB 13:20
PROVIDERS: PCP Internal Medicine; Visit Provider Internal Medicine
DX: E87.6 Hypokalemia (principal); B37.0 Candidal stomatitis; J44.9 Chronic obstructive pulmonary disease, unspecified
CPT/HCPCS: 36415; 80053; 83735; 85027

== ENCOUNTER 2025-01-19 14:31 | Outpatient (CLI) | payer MEDICARE, SELFPAY ==
[2025-01-19 14:42] LABS: Hematocrit 38.2 % (37.0-46.0); Hemoglobin 12.2 g/dL (12.4-15.3); Mean Corpuscular HGB Conc 31.9 g/dL (32-36); Mean Corpuscular Hemoglobin 29.2 pg (27.0-31.0); Mean Corpuscular Volume 91.4 fL (78.0-102.0); Mean Platelet Volume 8.7 fl (8.7-11.0); Platelet Count Result 241 K/mm3 (150-420); Red Blood Count 4.18 M/mm3 (4.70-6.10); Red Cell Distribution Width 14.5 % (11.6-14.4)
[2025-01-19 14:54] LABS: Hemoglobin A1C 5.9 % (<5.7)
[2025-01-19 15:06] LABS: Alanine Aminotransferase 12 U/L (6-50); Alkaline Phosphatase 92 U/L (38-126); Anion Gap 4 mmol/L (4-12); Aspartate Amino Transferase 20 U/L (17-59); Bilirubin,Total 0.4 mg/dL (0.2-1.3); Blood Urea Nitrogen 19 mg/dL (9-20); Calcium 9.3 mg/dL (8.4-10.2); Carbon Dioxide 30 mmol/L (22-30); Chloride 106 mmol/L (98-107); Cholesterol 122 mg/dL (0-200); Estimated Glomerular Filt Rate > 60; Glucose 87 mg/dL (65-110); HDL Direct 46 mg/dL; LDL Cholesterol Calculated 59 mg/dL (<130); Magnesium 1.7 mg/dL (1.6-2.3); Osmolality Calculated 291 mOsm/kg (285-295); Potassium 4.3 mmol/L (3.4-5.0); Sodium 140 mmol/L (137-145); Total Protein 6.7 g/dL (6.3-8.2); Triglycerides 83 mg/dL (<150)
== END 2025-01-19 14:32 | disposition home or self-care (01) ==
LOC: CHSLAB 14:33
PROVIDERS: PCP Internal Medicine; Visit Provider Internal Medicine
DX: E11.9 Type 2 diabetes mellitus without complications (principal); E78.5 Hyperlipidemia, unspecified
CPT/HCPCS: 36415; 80053; 80061; 83036; 83735; 85027